=== PATIENT | male | born 1960 | race Caucasian/White ===

== ENCOUNTER → 2017-11-02 14:00 | Outpatient (CLI) | payer OTHER, SELFPAY | DX: Z23 Encounter for immunization (principal) | CPT/HCPCS: 90471; 90686 ==

== ENCOUNTER 2018-10-03 11:03 | Emergency (ER) | payer OTHER, SELFPAY ==
[2018-10-03 11:15] VITALS: BP 148/94; PULSE 99; RESP 19; TEMP 36.7; O2SAT 99
--- NOTE | 2018-10-03 12:04 | DI.RAD.S_ITS ---
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 COMPARISON: None. FINDINGS: Bones: 5 sac-[id number] vertebrae are present. There is normal bony alignment. No vertebral body compression fractures. No suspicious bony lesions. Soft tissues: Overlying bowel gas pattern is normal. No suspicious soft tissue calcifications. IMPRESSION: Minimal degenerative disc disease is present without evidence of compression fracture or subluxation. Dictated by: Damian López M.D. on 10/03/2018 at 13:16 Approved by: Damian López M.D. on 10/03/2018 at 13:17
[2018-10-03] MEDS: IBUPROFEN 400 MG TABLET 800 MG PO (12:13)
[2018-10-03] MEDS: ACETAMINOPHEN 325 MG TABLET 975 MG PO (12:13)
[2018-10-03] MEDS: CYCLOBENZAPRINE 10 MG TABLET PO (12:14)
--- NOTE | 2018-10-03 12:46 | ED.BACK ---
HPI - Back Pain/Injury <ARACELY PorterP - Last Filed: 10/03/18 22:46> General Chief Complaint: Back Pain/Injury Stated Complaint: low back pain this am Time Seen by Provider: 10/03/18 11:55 Source: patient Mode of arrival: ambulatory Limitations: no limitations History of Present Illness HPI Narrative: This is a pleasant 58-year-old male, nonsmoker, who presents with nonradiating bilateral low back pain which started at work. The patient reports severe sharp localized pain in lower lumbar after he bent forward to pick remover a small item this was on the floor and straightening his body. He felt tightening and felt like his back is going to snap if he moves wrong. He denies incontinence, tingling numbness to groin/extremities, weakness to his lower limbs. He has chronic back issues in the past. Related Data Home Medications Medication Instructions Recorded Confirmed esomeprazole magnesium 40 mg PO DAILY 10/03/18 10/03/18 metformin 500 mg PO BID 10/03/18 10/03/18 telmisartan [Micardis] 40 mg PO DAILY 10/03/18 10/03/18 Previous Rx's Medication Instructions Recorded cyclobenzaprine 10 mg PO Q12H #10 tab 10/03/18 Review of Systems <SAVAGE Porter Last Filed: 10/03/18 22:46> Review of Systems General: Denies fever, chills, fatigue, malaise, sweats. HEENT: Denies sinus pain, ear pain, sore throat, difficulty swallowing, dizziness. Respiratory: Denies dyspnea, cough, wheezing, hemoptysis, sputum. Cardiovascular: Denies chest pain, palpitations, orthopnea, edema. Gastrointestinal: Denies nausea, vomiting, abdominal pain, diarrhea, constipation, melena. : Denies dysuria, frequency, incontinence, hematuria, urinary retention. Musculoskeletal: See HPI Skin: Denies rash, skin lesions, or other. Neurologic: Denies weakness, headache, numbness, change in speech, confusion, seizures, incoordination. Psychiatric: No concerning psychosocial issues. 12-point review of systems is negative except for those stated above. PFSH <SAVAGE Porter - Last Filed: 10/03/18 22:46> Medical History Diabetes (Acute) GERD (gastroesophageal reflux disease) (Acute) Back pain (Chronic) Surgical History Status post laparoscopic Demario fundoplication (Chronic) Social History Smoking Status: Former smoker Social History Smoking Status: Former smoker Exam <SAVAGE Porter - Last Filed: 10/03/18 22:46> Narrative Exam Narrative: GEN: Alert, oriented x 3, well appearing and nourished, and in no acute distress. Head: Normal cephalic, atraumatic. No scalp or temporal tenderness, palpable mass or rash. EYES: Pupils are equal, round, and reactive to light and accommodation. Extraocular muscles are intact bilaterally. There is no subconjunctival hemorrhage, exudate and sclera non-icteric. ENT: Bilateral auditory canals and tympanic membranes. Hearing grossly intact. Nose without bleeding, purulent discharge, septal hematoma or deviation. Turbinate without erythema or swelling. Facial sinuses nontender to palpate. Mucous membrane moist, no mucosal lesion. Throat without erythema, tonsillar hypertrophy or exudate. Uvula in midline, airway patent. Neck: Trachea in midline. No JVD, non-tender without lymphadenopathy. No masses or thyroid megaly. Supple, non-tender and no meningeal signs. CARDIAC: Normal regular rate and rhythm without murmurs, gallops, or rubs. No chest wall tenderness. No peripheral edema, cyanosis or pallor. Capillary refill is less than 2 seconds. RESPIRATORY: Lungs are cleat to auscultate bilaterally. No cough, wheezes, rales, or rhonchi. No stridor, respiratory distress, increase work of breathing, or accessary muscle used. ABD: Abdomen soft, nontender and non-distended. No guarding or rebound tenderness to palpate. Bowel sounds are normal in all 4 quadrants. There is no palpable masses or organomegaly. EXT: Full painless ROM of all extremities with no loss of sensation, strength, effusion or edema. SKIN: Warm, dry, normal color for patient. No erythema, lesions or rash over visible areas. BACK: Tender to palpate in low lumbar region without deformity or crepitance. Decreased active ROM with extension, side bending. Able to bend forward and rotate his body. Ambulatory leaning forward for maximize comfort. Lower extremity strength equal and intact bilaterally. No flank tenderness. NEUROLOGICAL: Alert and oriented to place, time and person. Sensation and motor function intact bilaterally. No facial droops, dysphasia. PSYCHIATRIC: Good judgement and reason, without hallucinations, abnormal affect or abnormal behaviors during the examination. Initial Vital Signs Initial Vital Signs: Vital Signs Temperature 98.1 F 10/03/18 11:15 Pulse Rate 99 H 10/03/18 11:15 Respiratory Rate 10/03/18 11:15 Blood Pressure 148/94 H 10/03/18 11:15 Pulse Oximetry 99 10/03/18 11:15 Back/Spine/Pelvis Back: normal to inspection, No ecchymosis, No erythema and No warmth Cervical Spine: normal cervical lordosis Thoracic/Lumbar Spine: thoracic and lumbar spine normal to inspection, bend over test abnormal, paraspinal tenderness and No lumbar spinal tenderness Sacroiliac Joints: pain elicited by passive hyperextension of lower extremity <Chloe Gao MD - Last Filed: 10/04/18 07:08> Initial Vital Signs Initial Vital Signs: Vital Signs Temperature 98.1 F 10/03/18 11:15 Pulse Rate 99 H 10/03/18 11:15 Respiratory Rate 10/03/18 11:15 Blood Pressure 148/94 H 10/03/18 11:15 Pulse Oximetry 99 10/03/18 11:15 Course <SAVAGE Porter - Last Filed: 10/03/18 22:46> Orders Ordered: Discontinued Medications Acetaminophen (Tylenol) 975 mg PO NOW ONE Stop: 10/03/18 12:05 Last Admin: 10/03/18 12:13 Dose: 975 mg Cyclobenzaprine HCl (Flexeril) 10 mg PO NOW ONE Stop: 10/03/18 12:05 Last Admin: 10/03/18 12:14 Dose: 10 mg Ibuprofen (Advil) 800 mg PO NOW ONE Stop: 10/03/18 12:05 Last Admin: 10/03/18 12:13 Dose: 800 mg Vital Signs - 8 hr 10/03/18 11:15 10/03/18 12:48 Temperature 98.1 F Pulse Rate 99 H 69 Respiratory Rate 19 17 Blood Pressure 148/94 H Blood Pressure [Left Arm] 134/79 Pulse Oximetry 99 97 <Chloe Gao MD - Last Filed: 10/04/18 07:08> Orders Ordered: Discontinued Medications Acetaminophen (Tylenol) 975 mg PO NOW ONE Stop: 10/03/18 12:05 Last Admin: 10/03/18 12:13 Dose: 975 mg Cyclobenzaprine HCl (Flexeril) 10 mg PO NOW ONE Stop: 10/03/18 12:05 Last Admin: 10/03/18 12:14 Dose: 10 mg Ibuprofen (Advil) 800 mg PO NOW ONE Stop: 10/03/18 12:05 Last Admin: 10/03/18 12:13 Dose: 800 mg Vital Signs - 8 hr 10/03/18 11:15 10/03/18 12:48 Temperature 98.1 F Pulse Rate 99 H 69 Respiratory Rate 19 17 Blood Pressure 148/94 H Blood Pressure [Left Arm] 134/79 Pulse Oximetry 99 97 MDM - Back Pain/Injury <SAVAGE Porter - Last Filed: 10/03/18 22:46> Differential Diagnosis Differential diagnosis: Likely strain of lumbar region and other (compression lumbar fracture, subluxation of lumbar spine) Medical Records Attestation: I reviewed the patient's medical records. Imaging Data XR-lumbar: Radiologist's impression: Wilberto Dover Michele M [address] [place] [address] XRay Report Signed Patient: Wilberto Dover JMR#: [id number] : 2Acct:[id number] Age/Sex: 58 / MDate of Service: 10/03/18 Loc: ED Accession Number: [id number] Procedure: XR lumbar spine 2-3V Ordering Provider: Phi Sarmiento PROCEDURE: XR LUMBAR SPINE 2-3V INDICATIONS: low back pain after bent over to pick remover an object TECHNIQUE: 3 views of the lumbar spine were acquired. COMPARISON: None. FINDINGS: Bones: 5 [id number] vertebrae are present. There is normal bony alignment. No vertebral body compression fractures. No suspicious bony lesions. Soft tissues: Overlying bowel gas pattern is normal. No suspicious soft tissue calcifications. IMPRESSION: Minimal degenerative disc disease is present without evidence of compression fracture or subluxation. Dictated by: Damian López M.D. on 10/03/2018 at 13:16 Approved by: Damian López M.D. on 10/03/2018 at 13:[address] [facility] Narrative Medical decision making narrative: This is a 58-year-old male who is employed of [employer] presents with bilateral low back pain. He injured his back while at work after picking up a small item on the floor and stood up. He felt instant sharp pain. He denies saddle anesthesia, weakness to lower limbs, incontinence problem after the injury. Patient had once back issues which she required injection in his lower thoracal/lumbar. He reports pain is worse with movement and changing positions. Patient was medicated with Tylenol and Motrin also with Flexeril. Patient felt comfortable sitting and leaning forward. X-ray of lumbar was obtained and shows no acute findings such as fracture or subluxation. Patient felt improved min in his low back pain. We discussed return precautions in length. Patient was advised to follow up with L&I medical provider or his primary care physician for this. Patient discharged to home with prescription of Flexeril and advised to continue with Tylenol and Motrin. He was to use ice pack or warm pack as needed for pain and muscle relaxant. Patient agrees with plan of treatment and no further questions were expressed. Was provided work off nose for 3 days. He was discharged to home with his spouse. Flexeril medication precaution was discussed with patient. Discharge Plan Departure Patient Disposition: Home Clinical Impression: Strain of lumbar region Qualifiers: Encounter type: initial encounter Qualified Code(s): S39.012A - Strain of muscle, fascia and tendon of lower back, initial encounter Discharge Date/Time: 10/03/18 14:01 Interventions: ED Discharge Assessment Last Done: 10/03/18 14:00 Instructions: DI for Back Spasm Activity Restrictions/Additional Instructions: You have been diagnosed with [low back pain and strain. You're lumbar x-ray shows no acute findings such as compression fractures or subluxation. There was minimal degenerative disc disease. Please rest you're back next a few days.]. What to do: *Take your medications as directed. Please take [id number] Tylenol and/or ibuprofen as needed for pain and inflammation. He can use ice pack/warm pack for the pain and inflammation. The muscle relaxant will cause drowsiness so please take precaution. Do not drive, operate heavy equipment, and alcohol when you're on this medication. *Follow up with your primary care provider in 2-3 days, call for an appointment. Let them know you were seen in the ED and that we asked you to be seen in follow up. *Return to ED if you have any new, worsening, or concerning symptoms, such as [increasing pain, tingling numbness or weakness to you're extremities, incontinence, fever, chest pain, breathing difficulty, unable to tolerate fluids or any acute concerns]. Prescriptions: New cyclobenzaprine 10 mg tablet 10 mg PO Q12H Qty: 10 RF: 0 No Action telmisartan [Micardis] 40 mg tablet 40 mg PO DAILY RF: 0 esomeprazole magnesium 40 mg capsule,delayed release(DR/EC) 40 mg PO DAILY RF: 0 metformin 500 mg tablet extended release 24 hr 500 mg PO BID RF: 0 Referrals: [facility] [Outside] Stand Alone Forms: Work Release Note
[2018-10-03 12:48] VITALS: BP 134/79; PULSE 69; RESP 17; O2SAT 97
--- NOTE | 2018-10-03 12:49 | ED_ITS ---
HPI - Back Pain/Injury <ARACELY PorterP - Last Filed: 10/03/18 22:46> General Chief Complaint: Back Pain/Injury Stated Complaint: low back pain this am Time Seen by Provider: 10/03/18 11:55 Source: patient Mode of arrival: ambulatory Limitations: no limitations History of Present Illness HPI Narrative: This is a pleasant 58-year-old male, nonsmoker, who presents with nonradiating bilateral low back pain which started at work. 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 He felt tightening and felt like his back is going to snap if he moves wrong. He denies incontinence, tingling numbness to groin/extremities, weakness to his lower limbs. He has chronic back issues in the past. Related Data Home Medications Medication Instructions Recorded Confirmed esomeprazole magnesium 40 mg PO DAILY 10/03/18 10/03/18 metformin 500 mg PO BID 10/03/18 10/03/18 telmisartan [Micardis] 40 mg PO DAILY 10/03/18 10/03/18 Previous Rx's Medication Instructions Recorded cyclobenzaprine 10 mg PO Q12H #10 tab 10/03/18 Review of Systems <SAVAGE Porter Last Filed: 10/03/18 22:46> Review of Systems General: Denies fever, chills, fatigue, malaise, sweats. HEENT: Denies sinus pain, ear pain, sore throat, difficulty swallowing, dizziness. Respiratory: Denies dyspnea, cough, wheezing, hemoptysis, sputum. Cardiovascular: Denies chest pain, palpitations, orthopnea, edema. Gastrointestinal: Denies nausea, vomiting, abdominal pain, diarrhea, constipation, melena. : Denies dysuria, frequency, incontinence, hematuria, urinary retention. Musculoskeletal: See HPI Skin: Denies rash, skin lesions, or other. Neurologic: Denies weakness, headache, numbness, change in speech, confusion, seizures, incoordination. Psychiatric: No concerning psychosocial issues. 12-point review of systems is negative except for those stated above. PFSH <SAVAGE Porter - Last Filed: 10/03/18 22:46> Medical History Diabetes (Acute) GERD (gastroesophageal reflux disease) (Acute) Back pain (Chronic) Surgical History Status post laparoscopic Demario fundoplication (Chronic) Social History Smoking Status: Former smoker Social History Smoking Status: Former smoker Exam <SAVAGE Porter - Last Filed: 10/03/18 22:46> Narrative Exam Narrative: GEN: Alert, oriented x 3, well appearing and nourished, and in no acute distress. Head: Normal cephalic, atraumatic. No scalp or temporal tenderness, palpable mass or rash. EYES: Pupils are equal, round, and reactive to light and accommodation. Extraocular muscles are intact bilaterally. There is no subconjunctival hemorrhage, exudate and sclera non-icteric. ENT: Bilateral auditory canals and tympanic membranes. Hearing grossly intact. Nose without bleeding, purulent discharge, septal hematoma or deviation. Turbinate without erythema or swelling. Facial sinuses nontender to palpate. Mucous membrane moist, no mucosal lesion. Throat without erythema, tonsillar hypertrophy or exudate. Uvula in midline, airway patent. Neck: Trachea in midline. No JVD, non-tender without lymphadenopathy. No masses or thyroid megaly. Supple, non-tender and no meningeal signs. CARDIAC: Normal regular rate and rhythm without murmurs, gallops, or rubs. No chest wall tenderness. No peripheral edema, cyanosis or pallor. Capillary refill is less than 2 seconds. RESPIRATORY: Lungs are cleat to auscultate bilaterally. No cough, wheezes, rales, or rhonchi. No stridor, respiratory distress, increase work of breathing, or accessary muscle used. ABD: Abdomen soft, nontender and non-distended. No guarding or rebound tenderness to palpate. Bowel sounds are normal in all 4 quadrants. There is no palpable masses or organomegaly. EXT: Full painless ROM of all extremities with no loss of sensation, strength, effusion or edema. SKIN: Warm, dry, normal color for patient. No erythema, lesions or rash over visible areas. BACK: Tender to palpate in low lumbar region without deformity or crepitance. Decreased active ROM with extension, side bending. Able to bend forward and rotate his body. Ambulatory leaning forward for maximize comfort. Lower extremity strength equal and intact bilaterally. No flank tenderness. NEUROLOGICAL: Alert and oriented to place, time and person. Sensation and motor function intact bilaterally. No facial droops, dysphasia. PSYCHIATRIC: Good judgement and reason, without hallucinations, abnormal affect or abnormal behaviors during the examination. Initial Vital Signs Initial Vital Signs: Vital Signs Temperature 98.1 F 10/03/18 11:15 Pulse Rate 99 H 10/03/18 11:15 Respiratory Rate 10/03/18 11:15 Blood Pressure 148/94 H 10/03/18 11:15 Pulse Oximetry 99 10/03/18 11:15 Back/Spine/Pelvis Back: normal to inspection, No ecchymosis, No erythema and No warmth Cervical Spine: normal cervical lordosis Thoracic/Lumbar Spine: thoracic and lumbar spine normal to inspection, bend over test abnormal, paraspinal tenderness and No lumbar spinal tenderness Sacroiliac Joints: pain elicited by passive hyperextension of lower extremity <Chloe Gao MD - Last Filed: 10/04/18 07:08> Initial Vital Signs Initial Vital Signs: Vital Signs Temperature 98.1 F 10/03/18 11:15 Pulse Rate 99 H 10/03/18 11:15 Respiratory Rate 10/03/18 11:15 Blood Pressure 148/94 H 10/03/18 11:15 Pulse Oximetry 99 10/03/18 11:15 Course <SAVAGE Porter - Last Filed: 10/03/18 22:46> Orders Ordered: Discontinued Medications Acetaminophen (Tylenol) 975 mg PO NOW ONE Stop: 10/03/18 12:05 Last Admin: 10/03/18 12:13 Dose: 975 mg Cyclobenzaprine HCl (Flexeril) 10 mg PO NOW ONE Stop: 10/03/18 12:05 Last Admin: 10/03/18 12:14 Dose: 10 mg Ibuprofen (Advil) 800 mg PO NOW ONE Stop: 10/03/18 12:05 Last Admin: 10/03/18 12:13 Dose: 800 mg Vital Signs - 8 hr 10/03/18 11:15 10/03/18 12:48 Temperature 98.1 F Pulse Rate 99 H 69 Respiratory Rate 19 17 Blood Pressure 148/94 H Blood Pressure [Left Arm] 134/79 Pulse Oximetry 99 97 <Chloe Gao MD - Last Filed: 10/04/18 07:08> Orders Ordered: Discontinued Medications Acetaminophen (Tylenol) 975 mg PO NOW ONE Stop: 10/03/18 12:05 Last Admin: 10/03/18 12:13 Dose: 975 mg Cyclobenzaprine HCl (Flexeril) 10 mg PO NOW ONE Stop: 10/03/18 12:05 Last Admin: 10/03/18 12:14 Dose: 10 mg Ibuprofen (Advil) 800 mg PO NOW ONE Stop: 10/03/18 12:05 Last Admin: 10/03/18 12:13 Dose: 800 mg Vital Signs - 8 hr 10/03/18 11:15 10/03/18 12:48 Temperature 98.1 F Pulse Rate 99 H 69 Respiratory Rate 19 17 Blood Pressure 148/94 H Blood Pressure [Left Arm] 134/79 Pulse Oximetry 99 97 MDM - Back Pain/Injury <SAVAGE Poretr - Last Filed: 10/03/18 22:46> Differential Diagnosis Differential diagnosis: Likely strain of lumbar region and other (compression lumbar fracture, subluxation of lumbar spine) Medical Records Attestation: I reviewed the patient's medical records. 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 COMPARISON: None. FINDINGS: Bones: 5 [id number] vertebrae are present. There is normal bony alignment. No vertebral body compression fractures. No suspicious bony lesions. Soft tissues: Overlying bowel gas pattern is normal. No suspicious soft tissue calcifications. IMPRESSION: Minimal degenerative disc disease is present without evidence of compression fracture or subluxation. Dictated by: Damian López M.D. on 10/03/2018 at 13:16 Approved by: Damian López M.D. on 10/03/2018 at 13:17 [facility] Narrative Medical decision making narrative: This is a 58-year-old male who is employed of [employer] presents with bilateral low back pain. He injured his back while at work after picking up a small item on the floor and stood up. He felt instant sharp pain. He denies saddle anesthesia, weakness to lower limbs, incontinence problem after the injury. Patient had once back issues which she required injection in his lower thoracal/lumbar. He reports pain is worse with movement and changing positions. Patient was medicated with Tylenol and Motrin also with Flexeril. Patient felt comfortable sitting and leaning forward. X- ray of lumbar was obtained and shows no acute findings such as fracture or subluxation. Patient felt improved min in his low back pain. We discussed return precautions in length. Patient was advised to follow up with L&I medical provider or his primary care physician for this. Patient discharged to home with prescription of Flexeril and advised to continue with Tylenol and Motrin. He was to use ice pack or warm pack as needed for pain and muscle relaxant. Patient agrees with plan of treatment and no further questions were expressed. Was provided work off nose for 3 days. He was discharged to home with his spouse. Flexeril medication precaution was discussed with patient. Discharge Plan Departure Patient Disposition: Home Clinical Impression: Strain of lumbar region Qualifiers: Encounter type: initial encounter Qualified Code(s): S39.012A - Strain of muscle, fascia and tendon of lower back, initial encounter Discharge Date/Time: 10/03/18 14:01 Interventions: ED Discharge Assessment Last Done: 10/03/18 14:00 Instructions: DI for Back Spasm Activity Restrictions/Additional Instructions: You have been diagnosed with [low back pain and strain. You're lumbar x-ray shows no acute findings such as compression fractures or subluxation. There was minimal degenerative disc disease. Please rest you're back next a few days.]. What to do: *Take your medications as directed. Please take [id number] Tylenol and/or ibuprofen as needed for pain and inflammation. He can use ice pack/warm pack for the pain and inflammation. The muscle relaxant will cause drowsiness so please take precaution. Do not drive, operate heavy equipment, and alcohol when you're on this medication. *Follow up with your primary care provider in 2-3 days, call for an appointment. Let them know you were seen in the ED and that we asked you to be seen in follow up. *Return to ED if you have any new, worsening, or concerning symptoms, such as [increasing pain, tingling numbness or weakness to you're extremities, incontinence, fever, chest pain, breathing difficulty, unable to tolerate fluids or any acute concerns]. Prescriptions: New cyclobenzaprine 10 mg tablet 10 mg PO Q12H Qty: 10 RF: 0 No Action telmisartan [Micardis] 40 mg tablet 40 mg PO DAILY RF: 0 esomeprazole magnesium 40 mg capsule,delayed release(DR/EC) 40 mg PO DAILY RF: 0 metformin 500 mg tablet extended release 24 hr 500 mg PO BID RF: 0 Referrals: [facility] [Outside] Stand Alone Forms: Work Release Note
[2018-10-03 14:00] VITALS: BP 141/99; PULSE 58; RESP 16; O2SAT 100
== END 2018-10-03 14:01 | disposition home or self-care (01) ==
PROVIDERS: Emergency Provider Nurse Practitioner Family
DX: S39.012A Strain of muscle, fascia and tendon of lower back, initial encounter (principal); X50.9XXA Other and unspecified overexertion or strenuous movements or postures, initial encounter
CPT/HCPCS: 72100; 99282; 99283

== ENCOUNTER → 2019-01-11 12:59 | Outpatient (CLI) | payer OTHER, SELFPAY | DX: Z23 Encounter for immunization (principal) | CPT/HCPCS: 90471; 90686 ==

== ENCOUNTER → 2019-11-23 | Outpatient (CLI) | payer OTHER, SELFPAY | PROVIDERS: Referring Provider Internal Medicine; Visit Provider Internal Medicine | DX: Z23 Encounter for immunization (principal) | CPT/HCPCS: 90471; 90686 ==

== ENCOUNTER → 2020-05-17 09:17 | Outpatient (CLI) | payer OTHER, SELFPAY ==
[2020-05-17 10:50] LABS: COVID19 -Nasal RAPID Negative (Negative)
== END ==
PROVIDERS: Visit Provider Surgery
DX: Z20.822 Contact with and (suspected) exposure to COVID-19 (principal)
CPT/HCPCS: 87635; C9803

== ENCOUNTER 2020-05-20 08:30 | Day surgery (SDC) | payer OTHER, SELFPAY ==
--- NOTE | 2020-05-20 | PATH_ITS ---
[facility] Accession Number: [id number] . 01 Material submitted: . PART A: rectum - RECTAL POLYP BIOPSY PART B: sigmoid colon - SIGMOID POLYP BIOPSY PART C: anus - ANAL VERGE POLYP . 02 Diagnosis: A. Rectal Polyp, Biopsy: Hyperplastic polyp. . B. Sigmoid Colon, Polyp, Biopsy: Hyperplastic polyp. . C. Anal Verge, Polyp, Biopsy: Invasive adenocarcinoma, moderately differentiated, arising in a background of high-grade dysplasia. Carcinoma is present at deep cauterized edge. Please see comment. MRV 05/23/2020 1412 Local . 02 Comment: As part of routine senior quality control inspector, Dr. Mccullough also reviewed this case and agrees with the diagnosis. Dr. Talbot gave preliminary results to Noemy and to Dr. Barboza on 05/23/2020. Mismatch repair IHC will be performed and the results reported as an addendum. . 02 Electronically signed: . Yanet Talbot MD, Pathologist NPI- [id number] . 01 Gross description: . Part A: RECTAL POLYP BIOPSY: Received in formalin are 4 fragment(s) of boogie, soft tissue measuring 0.1 x 0.1 x 0.1 cm to 0.4 x 0.2 x 0.2 cm submitted entirely in 1 cassette(s) Part B: SIGMOID POLYP BIOPSY: Received in formalin is 1 fragment(s) of boogie, soft tissue measuring 0.3 x 0.2 x 0.2 cm submitted entirely in 1 cassette(s) Part C: ANAL VERGE POLYP: Received in formalin are multiple fragment of boogie soft tissue measuring 1.6 x 1.5 x 1.5 cm in aggregate. Specimen is sectioned and submitted in its entirety in 2 cassettes. /MING 05/21/2020 2258 Local . 02 Pathologist provided ICD-10: C20 . 02 CPT . 798484, [id number], [id number], [id number], [id number] Performed at: 01 [facility] [address] [address], [place], [place] [id number] MD Blayne Ho MD Phone: [phone] Performed at: 02 [facility] [address] [place] [id number] MD Yanet Talbot MD Phone: [phone]
[2020-05-20 08:58] VITALS: BP 134/88; PULSE 83; RESP 15; TEMP 37.3; O2SAT 100; BMI 29.7
[2020-05-20] MEDS: LACTATED RINGERS 1,000 ML 200 ML IV (09:06)
--- NOTE | 2020-05-20 10:23 | PM.HP.1 ---
History of Present Illness History of Present Illness Date Patient Seen: 05/20/20 Time Patient Seen: 10:23 Chief complaint: SDC Narrative: The patient presents for colorectal screening after experiencing intermittent bright red blood per rectum. They have never had any previous examination for such. No personal or family history of colon cancer. On further history denies any recent gastrointestinal symptoms. No nausea, vomiting, abdominal pain, loss of appetite, unexplained weight loss, change in bowel habits, diarrhea, constipation. Patient History Medical History Back pain Diabetes GERD (gastroesophageal reflux disease) Surgical History Status post laparoscopic Demario fundoplication Family & Social History Social History: household members spouse Tobacco & Substance use: Smoking Status Former smoker alcohol intake never alcohol intake frequency other Substance Use Type does not use Meds Home Medications and Allergies Home Medications Medication Instructions Recorded Confirmed Type esomeprazole magnesium 40 mg PO DAILY 10/03/18 05/20/20 History metformin 500 mg PO BID 10/03/18 05/20/20 History telmisartan [Micardis] 40 mg PO DAILY 10/03/18 05/20/20 History Allergies Allergy/AdvReac Type Severity Reaction Status Date / Time No Known Drug Allergies Allergy Verified 05/20/20 08:44 Review of Systems Review of Systems ROS: Yes All systems reviewed with the patient and are negative except as otherwise documented Exam Vital Signs (past 8 hours): - 05/20/20 08:58 Temperature 99.1 F Pulse Rate 83 Respiratory Rate 15 Blood Pressure 134/88 Pulse Oximetry 100 Oxygen Delivery Method Room Air Narrative Exam Narrative: General-no acute distress, adult male HEENT-moist mucous membranes, no scleral icterus Neck-supple, no lymphadenopathy Chest- non labored respirations, clear to auscultation bilaterally Cardiac-regular rate no peripheral edema Abdomen-soft, nontender nondistended Extremities-warm, well perfused Neurological-alert and oriented, no focal deficits Assessment & Plan Assessment & Plan narrative: The patient requires colorectal screening and colonoscopy is recommended. Technical details were discussed. Risks, benefits, alternatives explained. Risks including but not limited to myocardial infarction, aspiration, bleeding, pain, missed lesion, incomplete examination, need for further radiographic studies, colonic perforation, and need for major abdominal surgery were discussed. All questions were answered to their satisfaction, and they are in agreement with this plan.
[2020-05-20] MEDS: MIDAZOLAM 5 MG/5 ML VIAL IV (10:30)
[2020-05-20] MEDS: fentaNYL 250 MCG/5 ML INJ IV (10:30)
[2020-05-20] MEDS: DIBUCAINE 1% OINT 28 GM 1 APPLIC TOP (11:15)
--- NOTE | 2020-05-20 11:17 | PM.OP.ENDO ---
Operative Date/Time/Diagnoses Date of procedure: 05/20/20 Time of procedure: 11:17 Pre-op diagnosis: Blood per rectum Post-op diagnosis: same Procedure & Clinicians Study performed: Colonoscopy Polypectomy Same procedure as scheduled: Yes Indications: 60-year-old male no prior colonoscopy presents after her intermittent bright red blood per rectum for colonoscopy. Surgeon: Ike Barboza Procedure Notes Procedure in detail: Medications: Conscious sedation using 8mg IV midazolam and 350mcg IV of fentanyl The history and physical was performed/updated and the patient is ASA class is 2. The procedure was discussed in detail with the patient. Potential risks complications including infection, bleeding, missed diagnosis, perforation, need for surgery, and were explained. Their questions were answered and informed consent was obtained. Patient was brought to the procedure room and placed standard monitoring equipment. The patient's vital signs were monitored continuously throughout the entire procedure. Prior to starting time-out was performed. The patient was placed in the left lateral recumbent position. Procedural sedation was administered. Examination began with a thorough inspection of the perianal area there was no evidence of fissures, fistulae, external hemorrhoids or cutaneous malignancy. The colonoscopy scope was then placed into the anal canal and was advanced to the cecum, which was identified by the ileocecal valve, the appendiceal orifice and the confluence of the taenia. The scope was then slowly withdrawn examining colon thoroughly in all directions, irrigating it of any residual stool. 5 mm polyp within the rectum removed with biopsy forceps. A 5 mm polyp within the sigmoid colon removed with biopsy forceps. 1-1/2 cm polyp within the anal canal seen on retroflexion removed in pieces using hot snare. Removed in its entirety. The patient tolerated the procedure well. They will be discharged once criteria are met. The prep was of good/excellent quality. The withdrawl time was 18 minutes. The sedation time was 45 minutes. Specimen(s): other (Anal canal, rectal, sigmoid, polyps) Complications: none Impression: Colonic polyps Post-procedure Recommendations: Colonscopy in 5 years Disposition: same day surgery
[2020-05-20 11:20] VITALS: BP 153/96; PULSE 95; RESP 14; TEMP 36.5; O2SAT 99
[2020-05-20 11:25] VITALS: BP 135/87; BP 144/96; PULSE 87; PULSE 91; RESP 13; RESP 14; TEMP 36.6; O2SAT 98; O2SAT 99
[2020-05-20 11:28] VITALS: BP 136/85; PULSE 96; RESP 13; TEMP 36.2; O2SAT 98
== END 2020-05-20 11:48 | disposition home or self-care (01) ==
PROVIDERS: Referring Provider Surgery; Visit Provider Surgery
PROC: 0DJD8ZZ Inspection of Lower Intestinal Tract, Via Natural or Artificial Opening Endoscopic (ICD-10-PCS; CPT 45378; principal; 2020-05-20 10:00)
DX: C20 Malignant neoplasm of rectum (principal); E11.9 Type 2 diabetes mellitus without complications; Z79.84 Long term (current) use of oral hypoglycemic drugs; K21.9 Gastro-esophageal reflux disease without esophagitis; K63.5 Polyp of colon
CPT/HCPCS: 45385; 45380; 99152; 99153; J2250; J3010

== ENCOUNTER → 2020-06-06 10:57 | Outpatient (CLI) | payer OTHER, SELFPAY ==
[2020-06-06 12:09] LABS: Hematocrit 42.4 % (41-53); Hemoglobin 14.4 g/dL (13.5-17.5); Mean Corpuscular HGB Conc 33.9 % (30-36); Mean Corpuscular Hemoglobin 28.9 PG (26-34); Mean Corpuscular Volume 85.2 fL (80-100); Platelet Count 246 X10^3/uL (150-400); Red Blood Cell Count 4.97 X10^6/uL (4.5-5.9); Red Cell Distribution Width 13.4 % (11.6-14.8); White Blood Cell Count 6.9 X10^3/uL (4.5-11.0)
[2020-06-06 12:28] LABS: Alanine Aminotransferase 34 IU/L (<50); Albumin 4.6 g/dL (3.5-5.0); Albumin Globulin Ratio 1.6 (1.0-2.8); Alkaline Phosphatase 73 U/L (38-126); Aspartate Aminotransferase 33 IU/L (17-59); BUN Creatinine Ratio 17.5 (6-22); Bilirubin Total 0.4 mg/dL (0.2-1.3); Blood Urea Nitrogen 14 mg/dL (9-20); Calcium 9.8 mg/dL (8.4-10.2); Carbon Dioxide 26 mmol/L (22-32); Chloride 100 mmol/L (98-107); Estimated Glomerular Filt Rate > 60.0 mL/min (>60); Globulin 2.8 g/dL (1.7-4.1); Glucose 321 mg/dL (70-100); HEMOLYSIS 17 (0-50); Potassium 4.4 mmol/L (3.4-5.1); Sodium 136 mmol/L (137-145); Total Protein 7.4 g/dL (6.3-8.2)
[2020-06-06 16:19] LABS: Carcinoembryonic Antigen 1.2 ng/mL (0.1-3.0)
== END ==
PROVIDERS: Referring Provider Surgery; Visit Provider Surgery
DX: C20 Malignant neoplasm of rectum (principal)
CPT/HCPCS: 36415; 80053; 82378; 85027

== ENCOUNTER → 2020-06-11 06:35 | Outpatient (CLI) | payer OTHER, SELFPAY ==
--- NOTE | 2020-06-11 06:37 | DI.MRI.S_ITS ---
PROCEDURE: MR ABDOMEN WO/W CON INDICATIONS: rectal cancer staging TECHNIQUE: Coronal HASTE, axial 2D FLASH in- and [id number]; axial breath-hold T2 FSE. Dynamic axial VIBE during the administration of contrast; post-contrast coronal VIBE or 2D FLASH with fat saturation from the hepatic dome to the iliac crests. Optional diffusion weighted imaging and ADC may be performed. COMPARISON: [facility], CT, CT CHEST W CON, 06/11/2020, 7:20. FINDINGS: Image quality: Excellent. Lung bases: No basal pleural effusions. Heart size is normal. Solid organs: Liver is normal in size and enhancement. Gallbladder appears normal. Biliary system is non dilated. Pancreas is normal in morphology. Spleen is normal in size and enhancement. No adrenal nodules. Both kidneys demonstrate normal size and enhancement, without hydronephrosis. Nodes and vessels: No retroperitoneal or mesenteric adenopathy by size criteria. Aorta and inferior vena cava are normal in size. Bowel and peritoneum: Bowel loops are normal in caliber. No free fluid. Bones and soft tissues: No ventral hernias. Bone marrow is normal in overall signal. IMPRESSION: No evidence of metastatic disease related to reported rectal carcinoma. Normal for age. Please note this study does not include the pelvis. If outside CT abdomen/pelvis is available for review I would be happy to generate an addendum to this report if a comparison study becomes available. Dictated by: Damian López M.D. on 06/11/2020 at 10:50 Approved by: Damian Lópze M.D. on 06/11/2020 at 11:00
--- NOTE | 2020-06-11 07:20 | DI.CT.S_ITS ---
PROCEDURE: CT CHEST W CON INDICATIONS: rectal cancer staging workup TECHNIQUE: After the administration of intravenous contrast, 5 mm thick sections acquired from the pulmonary apices to the posterior costophrenic angles. 1 mm axial lung, 5 mm thick coronal and sagittal reformats and 7 mm axial MIP were acquired. For radiation dose reduction, the following was used: automated exposure control, adjustment of mA and/or kV according to patient size. COMPARISON: [facility], MR, MR ABDOMEN WO/W CON, 06/11/2020, 7:14. FINDINGS: Image quality: Excellent. Lungs and pleura: No acute air space opacities. No pleural effusions or pneumothorax. Central and peripheral airways are patent and normal in caliber. 8 mm nodule along the right minor fissure on series 3, image 141. No priors are available for comparison. Mediastinum: Heart size is normal. No pericardial effusion. No mediastinal or hilar adenopathy by size criteria. Thoracic aorta and central pulmonary arteries are normal in size. Esophagus is normal in caliber. No hiatal hernia. Bones and chest wall: No suspicious bony lesions. No vertebral body compression fractures. No axillary or supraclavicular adenopathy by size criteria. Thyroid gland is unremarkable . Abdomen: Visualized portions of the liver appear enlarged with steatosis. Nonobstructing right renal calculi are noted, the largest measuring approximately 6 mm. Otherwise, visualized upper abdominal solid organs appear normal. Upper abdominal bowel loops are normal in caliber. IMPRESSION: 1. 8 mm right fissural nodule as above. It is nonspecific and no prior exams are available for comparison. Given history of rectal cancer, metastatic focus cannot be excluded and continued short interval imaging follow-up with attention to this region is recommended to document stability or progression. Dictated by: Caitlyn Lutz M.D. on 06/11/2020 at 13:00 Approved by: Caitlyn Lutz M.D. on 06/11/2020 at 13:06
== END ==
PROVIDERS: Referring Provider Surgery; Visit Provider Surgery
DX: C20 Malignant neoplasm of rectum (principal)
CPT/HCPCS: 71260; 74183; Q9967

== ENCOUNTER → 2020-06-25 08:53 | Outpatient (CLI) | payer OTHER, SELFPAY ==
--- NOTE | 2020-06-25 08:54 | DI.MRI.S_ITS ---
PROCEDURE: MR PELIS WO/W CON INDICATIONS: low rectal cancer TECHNIQUE: Coronal HASTE, sagittal T2 FSE, axial T1 FSE, axial and coronal nonbreath-hold T2 FSE. Axial dynamic VIBE during administration of contrast. Post-contrast axial and coronal VIBE/2-D FLASH with fat saturation from the iliac crests to the symphysis. Optional diffusion weighted imaging and ADC may be performed. COMPARISON: [facility], CT, CT CHEST W CON, 06/11/2020, 7:20. [facility], MR, MR ABDOMEN WO/W CON, 06/11/2020, 7:14. FINDINGS: Image quality: Excellent. Rectum: Morphology: Semi circumferential at the upper and lower thirds of the rectal mass, and circumferential at the middle 3rd. Clock face of tumor involvement: Not applicable-the mass involves the posterior border of the sigmoid colon and wraps posteriorly and then inferiorly into the upper rectum, with sagittal imaging during contrast enhancement showing the upper border of the mass on series 20, image 116 and the lower border of the mass after its crescentic course through the peritoneal reflection also on series 20, image 116. Mucinous (high T2 signal): No. Craniocaudal length: Utilizing multipoint measurement through the curvature from the sagittal pulse sequence, series 20, image 116 the craniocaudad length is extrapolated as 5.8 cm. Distance to anal verge: From the inferior margin of the mass using multi point extrapolation on sagittal imaging the length to the anal verge is 9.5 cm. Distance to top of sphincter complex/anorectal junction: 5.3 cm Relationship to anterior peritoneal reflection: Straddles, as noted above Tumor at or below puborectalis sling: No T staging: Depth of extramural invasion: None seen Extramural vascular invasion: None seen T3 tumors only: distance to mesorectal fascia (circumferential resection margin): Not applicable Pelvic organ involvement: Genitourinary: None. Pelvic sidewall (obturator internus, piriformis, ischiococcygeus muscles): Not involved Pelvic floor (pubococcygeus, iliococcygeus, puborectalis, levator plate): Not involved Sacrum: Not involved Vessels (internal and external iliac arteries and veins): Not involved Nerves (lumbosacral nerve roots): Not involved Regional lymph nodes (mesorectal, inguinal, iliac): None seen Other bowel and peritoneum: No pathologic free pelvic fluid. More proximal colon and small bowel loops are normal in caliber. Bones: Marrow is normal in overall signal. IMPRESSION: The rectal carcinoma involves the posterior border of the sigmoid colon and is eccentric in its involvement of the upper and lower 3rd margins of the neoplasm, but over much of the course through the middle 3rd of the neoplasm the lesion is circumferential. There is no evidence of irregularity along the serosal surface in the area of involvement, or extension into the mesial rectal fat. No adjacent adenopathy or regional osseous metastatic disease is seen. Dictated by: Damian López M.D. on 06/25/2020 at 15:15 Approved by: Damian López M.D. on 06/25/2020 at 15:43
== END ==
PROVIDERS: Referring Provider Surgery; Visit Provider Surgery
DX: C20 Malignant neoplasm of rectum (principal)
CPT/HCPCS: 72197

== ENCOUNTER → 2020-08-14 14:02 | Outpatient (CLI) | payer OTHER, SELFPAY ==
[2020-08-14 15:06] LABS: Carcinoembryonic Antigen 1.4 ng/mL (0.1-3.0)
== END ==
PROVIDERS: Referring Provider Surgery; Visit Provider Surgery
DX: C20 Malignant neoplasm of rectum (principal)
CPT/HCPCS: 36415; 82378

== ENCOUNTER → 2021-01-24 12:05 | Outpatient (CLI) | payer OTHER, SELFPAY | PROVIDERS: Referring Provider Internal Medicine; Visit Provider Internal Medicine | DX: Z23 Encounter for immunization (principal) | CPT/HCPCS: 90471; 90686 ==

== ENCOUNTER 2021-05-05 10:41 | Emergency (ER) | payer OTHER, SELFPAY ==
[2021-05-05] VITALS (11 sets, daily range): BP systolic 133–184; BP diastolic 78–95; PULSE 67–96; RESP 15–18; TEMP 36.5; O2SAT 91–100
[2021-05-05 11:22] LABS: Add Manual Diff / Slide Review NO; Basophils Absolute Auto 100 /uL (0-100); Basophils Percent Auto 1.2 % (0-2); Eosinophils Absolute Auto 200 /uL (0-450); Eosinophils Percent Auto 2.7 % (2-4); Hematocrit 38.6 % (41-53); Hemoglobin 13.3 g/dL (13.5-17.5); Lymphocytes Absolute Auto 2500 /uL (1100-4500); Lymphocytes Percent Auto 32.6 % (25-40); Mean Corpuscular HGB Conc 34.6 % (30-36); Mean Corpuscular Hemoglobin 28.6 PG (26-34); Mean Corpuscular Volume 82.6 fL (80-100); Monocytes Absolute Auto 800 /uL (0-900); Monocytes Percent Auto 10.3 % (3-14); Neutrophils Absolute Auto 4100 /uL (1500-7000); Neutrophils Percent Auto 53.2 % (50-75); Platelet Count 257 X10^3/uL (150-400); Red Blood Cell Count 4.67 X10^6/uL (4.5-5.9); Red Cell Distribution Width 13.5 % (11.6-14.8); White Blood Cell Count 7.8 X10^3/uL (4.5-11.0)
[2021-05-05 11:26] LABS: INR 0.9 (0.9-1.3); Prothrombin Time 10.1 SECONDS (10.1-12.7)
[2021-05-05 11:29] LABS: PTT Partial Thromboplastin Tim 34 SECONDS (26.4-36.2)
[2021-05-05 11:30] LABS: Alanine Aminotransferase 31 IU/L (<50); Albumin 4.7 g/dL (3.5-5.0); Albumin Globulin Ratio 1.9 (1.0-2.8); Alkaline Phosphatase 70 U/L (38-126); Aspartate Aminotransferase 27 IU/L (17-59); BUN Creatinine Ratio 20.5 (6-22); Bilirubin Total 0.4 mg/dL (0.2-1.3); Blood Urea Nitrogen 16 mg/dL (9-20); Calcium 9.4 mg/dL (8.4-10.2); Carbon Dioxide 24 mmol/L (22-32); Chloride 103 mmol/L (98-107); Estimated Glomerular Filt Rate > 60.0 mL/min (>60); Globulin 2.5 g/dL (1.7-4.1); Glucose 271 mg/dL (80-110); HEMOLYSIS 24 (0-50); Lipase 96 U/L (23-300); Potassium 4.4 mmol/L (3.4-5.1); Sodium 136 mmol/L (137-145); Total Protein 7.2 g/dL (6.3-8.2)
--- NOTE | 2021-05-05 12:19 | DI.CT.S_ITS ---
PROCEDURE: CT ABDOMEN PELVIS W CON INDICATIONS: diverticulitis? LLQ pain, penile/testicular pain, proctitis? TECHNIQUE: After the administration of intravenous contrast, axial sections acquired from the lung bases to the pubic symphysis. Coronal and sagittal reformats were performed. For radiation dose reduction, the following was used: automated exposure control, adjustment of mA and/or kV according to patient size. COMPARISON: [facility], MR, MR ABDOMEN WO/W CON, 06/11/2020, 7:14. [facility], MR, MR PELVIS WO/W CON, 06/25/2020, 9:18. FINDINGS: Image quality: Excellent. Lung bases: Unremarkable. Heart: No significant findings. ABDOMEN: Liver: Liver is normal in size. Moderate hepatic steatosis is seen, no discrete hepatic lesion.. Gallbladder: Gallbladder is within normal limits. Biliary ducts: Unremarkable. Pancreas: Unremarkable. Spleen: Unremarkable. Adrenal Glands: Unremarkable. Kidneys and Ureters: Unremarkable. Stomach and Bowel: Stomach, small bowel loops, and colon are unremarkable. No significant colonic diverticulosis is seen. No CT evidence of acute diverticulitis. Mild fecal stasis in the colon is seen. There is suggestion of distal posterior and left lateral rectal wall thickening with adjacent fat stranding. No discrete abscess collection is seen. Peritoneum: No abnormal intraperitoneal fluid. No free air. Ventral Wall: No hernias. Abdominal Nodes: No retroperitoneal or mesenteric adenopathy by size criteria. Vessels: Aorta and inferior vena cava are normal in size. Sfki-ko-kudywoaq atherosclerotic calcifications in abdominal aorta is seen. PELVIS: Pelvic Organs: Unremarkable. Bladder: Unremarkable. Pelvic Nodes: No enlarged lymph nodes. Miscellaneous: No hernias are seen. Bones: No suspicious bony lesion. No acute vertebral body compression. IMPRESSION: 1. Left posterior lateral rectal wall thickening with adjacent fat stranding concerning for proctitis. Given patient's history of rectal cancer, local recurrence cannot be entirely excluded. Clinical and possible endoscopic evaluation is recommended. 2. No other area of abnormal bowel wall thickening. No bowel obstruction. Mild constipation. No free fluid or free air. No abscess collection. 3. Hepatic steatosis, no discrete hepatic lesion. Dictated by: Richard Mariscal M.D. on 05/05/2021 at 13:00 Approved by: Richard Mariscal M.D. on 05/05/2021 at 13:04
--- NOTE | 2021-05-05 12:44 | ED_ITS ---
HPI - Male Genitourinary <Yanet Bates [facility] [place] - Last Filed: 05/05/21 14:05> General Chief complaint: Urogenital-Male Stated complaint: Lower left abd pain Time Seen by Provider: 05/05/21 12:06 Source: patient Mode of arrival: Ambulatory History of Present Illness HPI Narrative: 61-year-old male who has a history back pain, diabetes, GERD with a past problem of rectal cancer who presents to the emergency department complaining of left lower quadrant and flank pain for the last 5 days with urinary frequency, u rgency, and left testicle pain. Patient states that he is uncircumcised, and he always has been hygienic in this area and he denies any signs of infection but he endorses irritation and redness around his urethra. Patient states that he does not have a bowel movement every day, he endorses that when he does it is very large and it has been 2 days since he has had a bowel movement. He denies any fever, nausea, vomiting, chest pain, chills. He states that he has had 2 days of fatigue, feeling more tired than usual, and overall just unwell. He came to emergency department concern for a urinary infection. Patient states that he takes a baby aspirin daily and he took 2 this morning for his pain and he is doing okay right now. On chart review it was noted that patient has a history of Faraz fundoplication, and 6 months ago patient had a colonoscopy after 6 months of rectal bleeding with surgery by Dr. Barboza removing a 5 mm polyp and pathology demonstrated invasive adenocarcinoma, moderately differentiated, arising in a background of of high-grade dysplasia. Carcinoma was present at the deep cauterize edge. Patient had this area tattooed and was to follow-up with a colonoscopy in 6 months. Patient did not endorse any of this background, this was all found on chart review. Related Data Home Medications Medication Instructions Recorded Confirmed esomeprazole magnesium 40 mg 40 mg PO DAILY 10/03/18 06/05/20 capsule,delayed release metformin 500 mg tablet,extended 500 mg PO BID 10/03/18 06/05/20 release 24 hr telmisartan 40 mg tablet 40 mg PO DAILY 10/03/18 06/05/20 metformin 500 mg tablet,extended 1,000 mg PO BID 05/05/21 05/05/21 release 24 hr Previous Rx's Medication Instructions Recorded ciprofloxacin HCl 500 mg tablet 500 mg PO BID 8 Days #16 tab 05/05/21 metronidazole 500 mg tablet 500 mg PO TID 8 Days #24 tab 05/05/21 Allergies Allergy/AdvReac Type Severity Reaction Status Date / Time No Known Drug Allergies Allergy Verified 06/05/20 14:37 Review of Systems <SAVAGE Hutchins - Last Filed: 05/05/21 14:05> Review of Systems Narrative: General: denies fever, chills, or sweats, endorses havingmalaise, fatigue Head/Neck: denies headache, neck pain, dizziness Eyes: denies visual changes, eye pain Cardio: denies chest pain, palpitations, edema Respiratory: denies dyspnea, cough, orthopnea GI: endorses LLQ abdominal pain without nausea, vomiting, or diarrhea : endorses dysuria, denies hematuria, urinary retention, frequency or incontinence. He states that after voiding sometimes he has dribbling and may be why his urethra is irritated MSK: denies joint pain, muscle weakness Skin: denies rash, itching, skin lesions or other Neuro: denies numbness, tingling Patient History <SAVAGE Hutchins - Last Filed: 05/05/21 14:05> Medical History (Updated 05/05/21 @ 13:36 by SAVAGE Hutchins) Back pain Diabetes GERD (gastroesophageal reflux disease) Surgical History Status post laparoscopic Demario fundoplication Social History household members: spouse Smoking Status: Former smoker alcohol intake: never Smoking Status: Former smoker alcohol intake frequency: other Substance Use Type: does not use Exam <SAVAGE Hutchins - Last Filed: 05/05/21 14:05> Narrative Exam Narrative: Independently reviewed vitals signs and nursing notes. General: cooperative, comfortable, in no acute distress, well developed and well groomed Head: atraumatic, symmetrical facial expressions Neck: supple, atraumatic, without lymphadenopathy. Eyes: pupils equal round and reactive, EOMI, conjunctiva normal Nose: nares patent, no rhinorrhea Mouth/Throat: uvula midline, moist mucus membranes Cardiovascular: regular rate and rhythm, no peripheral edema, warm extremities Respiratory: normal effort, able to speak in complete sentences, no audible wheezing, stridor, or rales. No retractions or tachypnea. GI: abdomen soft, tender over left lower quadrant to palpation, nondistended, no masses, no exquisite tenderness with exam, patient is guarding on lower left quadrant with palpation MSK: moves all extremities, ambulatory w/steady gait, neurovascularly intact, no weakness Skin: brisk capillary refill, no rash, no erythema Neuro: normal speech and cognition, A&O x3, normal tone Psych: mental status is grossly normal, congruent mood, normal affect, pleasant and cooperative Initial Vital Signs Initial Vital Signs: Vital Signs Pulse Rate 96 H 05/05/21 10:46 Blood Pressure 184/95 H 05/05/21 10:46 Pulse Oximetry 91 05/05/21 10:46 <Chanda Grady DO - Last Filed: 05/06/21 07:46> Initial Vital Signs Initial Vital Signs: Vital Signs Pulse Rate 96 H 05/05/21 10:46 Blood Pressure 184/95 H 05/05/21 10:46 Pulse Oximetry 91 05/05/21 10:46 Course <SAVAGE Hutchins - Last Filed: 05/05/21 14:05> Orders Ordered: ED Orders 05/05/21 11:06 Complete Blood Count AUTO DIFF Stat Comprehensive Metabolic Panel Stat Lipase Stat Partial Thromboplastin Time Stat Procalcitonin Stat Prothrombin Time INR Stat 05/05/21 11:19 EKG-12 Lead Stat 05/05/21 12:19 CT abdomen pelvis w con Stat Vital Signs Vital signs: Vital Signs - 8 hr 05/05/21 10:46 05/05/21 10:49 05/05/21 11:03 Temperature 97.7 F Pulse Rate 96 H 70 81 Respiratory Rate 18 Blood Pressure 184/95 H 184/95 H Pulse Oximetry 91 98 99 05/05/21 11:07 05/05/21 11:30 05/05/21 11:58 Temperature Pulse Rate 89 78 79 Respiratory Rate Blood Pressure 142/87 H 134/81 Pulse Oximetry 99 98 98 05/05/21 12:00 05/05/21 12:33 05/05/21 13:00 Temperature Pulse Rate 75 80 67 Respiratory Rate 15 Blood Pressure 133/78 Pulse Oximetry 98 100 99 05/05/21 13:30 Temperature Pulse Rate 88 Respiratory Rate Blood Pressure Pulse Oximetry 99 <Chanda Grady DO - Last Filed: 05/06/21 07:46> Orders Ordered: ED Orders 05/05/21 11:06 Complete Blood Count AUTO DIFF Stat Comprehensive Metabolic Panel Stat Lipase Stat Partial Thromboplastin Time Stat Procalcitonin Stat Prothrombin Time INR Stat 05/05/21 11:19 EKG-12 Lead Stat 05/05/21 12:19 CT abdomen pelvis w con Stat Vital Signs Vital signs: Vital Signs - 8 hr 05/05/21 10:46 05/05/21 10:49 05/05/21 11:03 Temperature 97.7 F Pulse Rate 96 H 70 81 Respiratory Rate 18 Blood Pressure 184/95 H 184/95 H Pulse Oximetry 91 98 99 05/05/21 11:07 05/05/21 11:30 05/05/21 11:58 Temperature Pulse Rate 89 78 79 Respiratory Rate Blood Pressure 142/87 H 134/81 Pulse Oximetry 99 98 98 05/05/21 12:00 05/05/21 12:33 05/05/21 13:00 Temperature Pulse Rate 75 80 67 Respiratory Rate 15 Blood Pressure 133/78 Pulse Oximetry 98 100 99 05/05/21 13:30 Temperature Pulse Rate 88 Respiratory Rate Blood Pressure Pulse Oximetry 99 MDM - Male Genitourinary <ARACELY HutchinsP - Last Filed: 05/05/21 14:05> Lab Data Result diagrams: 05/05/21 11:06 05/05/21 11:06 Labs: Lab Results 05/05/21 05/05/21 05/05/21 Range/Units 11:06 11:06 11:06 WBC 7.8 (4.5-11.0) X10^3/uL RBC 4.67 (4.5-5.9) X10^6/uL Hgb 13.3 L (13.5-17.5) g/dL Hct 38.6 L (41-53) % MCV 82.6 (80-100) fL MCH 28.6 (26-34) PG MCHC 34.6 (30-36) % RDW 13.5 (11.6-14.8) % Plt Count 257 (150-400) X10^3/uL Neut % (Auto) 53.2 (50-75) % Lymph % (Auto) 32.6 (25-40) % [place] % (Auto) 10.3 (3-14) % Eos % (Auto) 2.7 (2-4) % Baso % (Auto) 1.2 (0-2) % Neut # (Auto) 4100 (4349-9804) /uL Lymph # (Auto) 2500 (6700-6468) /uL [place] # (Auto) 800 (0-900) /uL Eos # (Auto) 200 (0-450) /uL Baso # (Auto) 100 (0-100) /uL PT 10.1 (10.1-12.7) SECONDS INR 0.9 (0.9-1.3) APTT 34 (26.4-36.2) SECONDS Sodium 136 L (137-145) mmol/L Potassium 4.4 (3.4-5.1) mmol/L Chloride 103 (98-107) mmol/L Carbon Dioxide 24 (22-32) mmol/L BUN 16 (9-20) mg/dL Creatinine 0.78 (0.66-1.25) mg/dL Estimated GFR > 60.0 (>60) mL/min BUN/Creatinine Ratio 20.5 (6-22) Glucose 271 H (80-110) mg/dL Calcium 9.4 (8.4-10.2) mg/dL Total Bilirubin 0.4 (0.2-1.3) mg/dL AST 27 (17-59) IU/L ALT 31 (<50) IU/L Alkaline Phosphatase 70 (38-126) U/L Total Protein 7.2 (6.3-8.2) g/dL Albumin 4.7 (3.5-5.0) g/dL Globulin 2.5 (1.7-4.1) g/dL Albumin/Globulin Ratio 1.9 (1.0-2.8) Lipase 96 (23-300) U/L Procalcitonin (<0.5) ng/mL 05/05/21 Range/Units 11:06 WBC (4.5-11.0) X10^3/uL RBC (4.5-5.9) X10^6/uL Hgb (13.5-17.5) g/dL Hct (41-53) % MCV (80-100) fL MCH (26-34) PG MCHC (30-36) % RDW (11.6-14.8) % Plt Count (150-400) X10^3/uL Neut % (Auto) (50-75) % Lymph % (Auto) (25-40) % [place] % (Auto) (3-14) % Eos % (Auto) (2-4) % Baso % (Auto) (0-2) % Neut # (Auto) (3233-2667) /uL Lymph # (Auto) (7836-2616) /uL [place] # (Auto) (0-900) /uL Eos # (Auto) (0-450) /uL Baso # (Auto) (0-100) /uL PT (10.1-12.7) SECONDS INR (0.9-1.3) APTT (26.4-36.2) SECONDS Sodium (137-145) mmol/L Potassium (3.4-5.1) mmol/L Chloride (98-107) mmol/L Carbon Dioxide (22-32) mmol/L BUN (9-20) mg/dL Creatinine (0.66-1.25) mg/dL Estimated GFR (>60) mL/min BUN/Creatinine Ratio (6-22) Glucose (80-110) mg/dL Calcium (8.4-10.2) mg/dL Total Bilirubin (0.2-1.3) mg/dL AST (17-59) IU/L ALT (<50) IU/L Alkaline Phosphatase (38-126) U/L Total Protein (6.3-8.2) g/dL Albumin (3.5-5.0) g/dL Globulin (1.7-4.1) g/dL Albumin/Globulin Ratio (1.0-2.8) Lipase (23-300) U/L Procalcitonin 0.05 (<0.5) ng/mL Point of Care Testing Glucose POC 268 Urine Dip Bedside Urine Glucose 1000 mg/dl Bedside Urine Bilirubin - Negative Bedside Urine Ketone - Negative Urine Specific [place] 1.025 Bedside Urine Occult Blood - Negative Bedside Urine pH 6.0 Bedside Urine Protein - Negative Bedside Urine Urobilinogen - Negative Bedside Urine Nitrite - Negative Bedside Urine Leukocytes - Negative Esterase Imaging Data CT scan - abdomen/pelvis: Radiologist's Impression: PROCEDURE:? CT ABDOMEN PELVIS W CON ? INDICATIONS:? diverticulitis? LLQ pain, penile/testicular pain, proctitis? ? TECHNIQUE:? After the administration of intravenous contrast, axial sections acquired from the lung bases to the pubic symphysis.? Coronal and sagittal reformats were performed.? For radiation dose reduction, the following was used:? automated exposure control, a djustment of mA and/or kV according to patient size.? ? COMPARISON:? [facility], MR, ABDOMEN WO/W CON, 06/11/2020, 7:14.? [facility], MR, PELVIS WO/W CON, 06/25/2020, 9:18. ? FINDINGS:? Image quality:? Excellent.? ? Lung bases:? Unremarkable. Heart:? No significant findings. ? ABDOMEN: Liver:? Liver is normal in size.? Moderate hepatic steatosis is seen, no discrete hepatic lesion..? ? Gallbladder:? Gallbladder is within normal limits. Biliary ducts:? Unremarkable.? ? Pancreas:? Unremarkable.? ? Spleen:? Unremarkable.? ? Adrenal Glands:? Unremarkable.? ? Kidneys and Ureters:? Unremarkable.? ? ? Stomach and Bowel:? Stomach, small bowel loops, and colon are unremarkable.? No significant colonic diverticulosis is seen.? No CT evidence of acute diverticulitis.? Mild fecal stasis in the colon is seen.? There is suggestion of distal posterior and left lateral rectal wall thickening with adjacent fat stranding.? No discrete abscess collection is seen. Peritoneum:? No abnormal intraperitoneal fluid.? No free air.? ? Ventral Wall: ? No hernias.? Abdominal Nodes:? No retroperitoneal or mesenteric adenopathy by size criteria.? Vessels:? Aorta and inferior vena cava are normal in size.? [id number] atherosclerotic calcifications in abdominal aorta is seen. ? PELVIS: Pelvic Organs:? Unremarkable.? ? Bladder:? Unremarkable.? ? Pelvic Nodes: No enlarged lymph nodes.? Miscellaneous: No hernias are seen. ? ? ? Bones:? No suspicious bony lesion.? No acute vertebral body compression. ? ? IMPRESSION: 1. Left posterior lateral rectal wall thickening with adjacent fat stranding concerning for proctitis.? Given patient's history of rectal cancer, local recurrence cannot be entirely excluded.? Clinical and possible endoscopic evaluation is recommended. 2.? No other area of abnormal bowel wall thickening.? No bowel obstruction.? Mild constipation.? No free fluid or free air.? No abscess collection. 3.? Hepatic steatosis, no discrete hepatic lesion.? ? ? Dictated by: Richard Mariscal M.D. on 05/05/2021 at 13:00 ? ? Approved by: Richard Mraiscal M.D. on 05/05/2021 at 13:04 ? MDM Narrative Medical decision making narrative: 61 year-old male presents to the emergency department for left sided abdominal pain, with concern for UTI. On chart review was noted hold that patient had a polyp removed [address] Barboza which pathology demonstrated as invasive adenocarcinoma moderately differentiated in a background of high-grade dysplasia with carcinoma at the wound edge after 6 months of rectal bleeding. Lab work was fairly unremarkable, no leukocytosis, procalcitonin was 0.05, patient did not have signs of dehydration. Patient endorses that he does not have bowel movements every day it has been 2 days since he has had a bowel movement and when he does he has very large ones. He currently denies rectal pain although endorses pain from his left testicle all the way to his left lower quadrant and left flank area. UA did not show any signs of infection. Patient had tenderness on his lower left quadrant to palpation, CT imaging obtained for concern diverticulitis versus proctitis. CT shows left posterior lateral rectal wall thickening with adjacent fat stranding concerning for proctitis. Given patient's history of rectal cancer, local recurrence cannot be entirely excluded. Clinical and possible endoscopic evaluation is recommended. No other areas of abnormal bowel wall thickening, no bowel obstruction, mild constipation, no free fluid or free air, no abscess collection. Patient was treated for prostatitis with ciprofloxacin and Flagyl. He will follow-up with [facility] Matthews to he was to have a colonoscopy with at this time. He will follow- up with his primary care provider to get a referral for Gastroenterology if he is unable to get a hold of Cindy Matthews. I could not find her in our system to refer him. Patient was given strict return to the emergency department instruc tions. Patient is appropriate and amenable to discharge home. Vital signs are stable on repeat examination is unremarkable. Patient has been informed of results. Patient has been given strict return to ER precautions for any new or worsening symptoms. Patient understands to follow up closely with outpatient providers as instructed. Patient understands plan and agrees to discharge home. All questions and concerns answered at this time. <Chanda Grady DO - Last Filed: 05/06/21 07:46> Lab Data Labs: Lab Results 05/05/21 05/05/21 05/05/21 Range/Units 11:06 11:06 11:06 WBC 7.8 (4.5-11.0) X10^3/uL RBC 4.67 (4.5-5.9) X10^6/uL Hgb 13.3 L (13.5-17.5) g/dL Hct 38.6 L (41-53) % MCV 82.6 (80-100) fL MCH 28.6 (26-34) PG MCHC 34.6 (30-36) % RDW 13.5 (11.6-14.8) % Plt Count 257 (150-400) X10^3/uL Neut % (Auto) 53.2 (50-75) % Lymph % (Auto) 32.6 (25-40) % [place] % (Auto) 10.3 (3-14) % Eos % (Auto) 2.7 (2-4) % Baso % (Auto) 1.2 (0-2) % Neut # (Auto) 4100 (7898-2301) /uL Lymph # (Auto) 2500 (3070-6038) /uL [place] # (Auto) 800 (0-900) /uL Eos # (Auto) 200 (0-450) /uL Baso # (Auto) 100 (0-100) /uL PT 10.1 (10.1-12.7) SECONDS INR 0.9 (0.9-1.3) APTT 34 (26.4-36.2) SECONDS Sodium 136 L (137-145) mmol/L Potassium 4.4 (3.4-5.1) mmol/L Chloride 103 (98-107) mmol/L Carbon Dioxide 24 (22-32) mmol/L BUN 16 (9-20) mg/dL Creatinine 0.78 (0.66-1.25) mg/dL Estimated GFR > 60.0 (>60) mL/min BUN/Creatinine Ratio 20.5 (6-22) Glucose 271 H (80-110) mg/dL Calcium 9.4 (8.4-10.2) mg/dL Total Bilirubin 0.4 (0.2-1.3) mg/dL AST 27 (17-59) IU/L ALT 31 (<50) IU/L Alkaline Phosphatase 70 (38-126) U/L Total Protein 7.2 (6.3-8.2) g/dL Albumin 4.7 (3.5-5.0) g/dL Globulin 2.5 (1.7-4.1) g/dL Albumin/Globulin Ratio 1.9 (1.0-2.8) Lipase 96 (23-300) U/L Procalcitonin (<0.5) ng/mL 05/05/21 Range/Units 11:06 WBC (4.5-11.0) X10^3/uL RBC (4.5-5.9) X10^6/uL Hgb (13.5-17.5) g/dL Hct (41-53) % MCV (80-100) fL MCH (26-34) PG MCHC (30-36) % RDW (11.6-14.8) % Plt Count (150-400) X10^3/uL Neut % (Auto) (50-75) % Lymph % (Auto) (25-40) % [place] % (Auto) (3-14) % Eos % (Auto) (2-4) % Baso % (Auto) (0-2) % Neut # (Auto) (3503-5334) /uL Lymph # (Auto) (4763-7024) /uL [place] # (Auto) (0-900) /uL Eos # (Auto) (0-450) /uL Baso # (Auto) (0-100) /uL PT (10.1-12.7) SECONDS INR (0.9-1.3) APTT (26.4-36.2) SECONDS Sodium (137-145) mmol/L Potassium (3.4-5.1) mmol/L Chloride (98-107) mmol/L Carbon Dioxide (22-32) mmol/L BUN (9-20) mg/dL Creatinine (0.66-1.25) mg/dL Estimated GFR (>60) mL/min BUN/Creatinine Ratio (6-22) Glucose (80-110) mg/dL Calcium (8.4-10.2) mg/dL Total Bilirubin (0.2-1.3) mg/dL AST (17-59) IU/L ALT (<50) IU/L Alkaline Phosphatase (38-126) U/L Total Protein (6.3-8.2) g/dL Albumin (3.5-5.0) g/dL Globulin (1.7-4.1) g/dL Albumin/Globulin Ratio (1.0-2.8) Lipase (23-300) U/L Procalcitonin 0.05 (<0.5) ng/mL Point of Care Testing Glucose POC 268 Urine Dip Bedside Urine Glucose 1000 mg/dl Bedside Urine Bilirubin - Negative Bedside Urine Ketone - Negative Urine Specific [place] 1.025 Bedside Urine Occult Blood - Negative Bedside Urine pH 6.0 Bedside Urine Protein - Negative Bedside Urine Urobilinogen - Negative Bedside Urine Nitrite - Negative Bedside Urine Leukocytes - Negative Esterase Discharge Plan Departure Patient Disposition: Home Clinical Impression: Acute proctitis Instructions: Proctitis Activity Restrictions/Additional Instructions: *You have been diagnosed with proctitis. Please stay hydrated, consider taking a multivitamin, decreased her p.o. intake for 1-2 days and drink lots of clear liquids. Please follow-up with Cindy Matthews and get scheduled for your next colonoscopy as soon as possible. Please return to your primary care provider for a referral to Gastroenterology or General surgery as needed. Hope you start feeling better on these antibiotics, please follow-up with your primary care provider, I was unable to find Cindy or Dr. Sims in my system, so they will be able to request records from us. *What to do: *Please continue to take your regular medications as directed. [ x] New medication prescriptions sent to your pharmacy: [[facility] ] [ ] New medication written as a paper prescription [ ] No new medications given *Please follow up with your primary care provider in 2-3 days, call for an appointment. Let them know you were seen in the Emergency Department and that we asked that you be seen for follow-up. We will electronically transmit a record of today's note if your PCP is in our system *If you do not have a primary care provider please contact [phone] to establish care with one of the [facility] primary care providers. *Return to Emergency Department if you should have any new, worsening or concerning symptoms, such as [fever greater than 101F, chills, worsening pain, persistent vomiting or other bothersome symptoms] Prescriptions: New metronidazole 500 mg tablet 500 mg PO TID 8 Days Qty: 24 0RF ciprofloxacin HCl 500 mg tablet 500 mg PO BID 8 Days Qty: 16 0RF No Action telmisartan 40 mg tablet 40 mg PO DAILY 0RF esomeprazole magnesium 40 mg capsule,delayed release(DR/EC) 40 mg PO DAILY 0RF metformin 500 mg tablet extended release 24 hr 500 mg PO BID 0RF metformin 500 mg tablet extended release 24 hr 1,000 mg PO BID 0RF Stand Alone Forms: Work Release Note <Chanda Grady, - Last Filed: 05/06/21 07:46> Cosign ED Attending Cosignature Attestation: I was immediately available in the department for consultation. Documentation has been reviewed. I agree with assessment and plan.
--- NOTE | 2021-05-05 12:46 | PC.NURSE ---
Patient also reports intermittent LLQ pain and hisotry of abnormal colonoscopy last year. Patient had a polyp with cancer cells removed.
[2021-05-05 13:11] LABS: Procalcitonin 0.05 ng/mL (<0.5)
== END 2021-05-05 14:04 | disposition home or self-care (01) ==
PROVIDERS: Emergency Medicine; Emergency Provider Nurse Practitioner Critical Care Medicine
DX: K62.89 Other specified diseases of anus and rectum (principal); Z87.891 Personal history of nicotine dependence
CPT/HCPCS: 36415; 74177; 80053; 81003; 82962; 83690; 84145; 85025; 85610; 85730; 93005; 93010; 99284; Q9967

== ENCOUNTER 2021-05-11 13:10 | Emergency (ER) | payer OTHER, SELFPAY ==
[2021-05-11 13:15] VITALS: BP 149/92; PULSE 98; RESP 20; TEMP 36.6; O2SAT 98
[2021-05-11 14:11] LABS: Add Manual Diff / Slide Review NO; Basophils Absolute Auto 100 /uL (0-100); Basophils Percent Auto 1.1 % (0-2); Eosinophils Absolute Auto 100 /uL (0-450); Hemoglobin 15.1 g/dL (13.5-17.5); Lymphocytes Absolute Auto 1600 /uL (1100-4500); Lymphocytes Percent Auto 22.6 % (25-40); Mean Corpuscular HGB Conc 34.4 % (30-36); Mean Corpuscular Hemoglobin 28.6 PG (26-34); Mean Corpuscular Volume 83.2 fL (80-100); Monocytes Absolute Auto 900 /uL (0-900); Monocytes Percent Auto 12.1 % (3-14); Neutrophils Absolute Auto 4500 /uL (1500-7000); Neutrophils Percent Auto 62.2 % (50-75); Platelet Count 257 X10^3/uL (150-400); Red Blood Cell Count 5.29 X10^6/uL (4.5-5.9); Red Cell Distribution Width 13.2 % (11.6-14.8); White Blood Cell Count 7.2 X10^3/uL (4.5-11.0)
[2021-05-11 14:23] LABS: Alanine Aminotransferase 141 IU/L (<50); Albumin 5.1 g/dL (3.5-5.0); Albumin Globulin Ratio 1.7 (1.0-2.8); Alkaline Phosphatase 63 U/L (38-126); Aspartate Aminotransferase 120 IU/L (17-59); BUN Creatinine Ratio 14.5 (6-22); Bilirubin Total 0.7 mg/dL (0.2-1.3); Blood Urea Nitrogen 12 mg/dL (9-20); Carbon Dioxide 27 mmol/L (22-32); Chloride 101 mmol/L (98-107); Estimated Glomerular Filt Rate > 60.0 mL/min (>60); Glucose 159 mg/dL (80-110); HEMOLYSIS < 15 (0-50); Potassium 4.6 mmol/L (3.4-5.1); Sodium 138 mmol/L (137-145); Total Protein 8.1 g/dL (6.3-8.2)
[2021-05-11 14:38] VITALS: BP 144/95; PULSE 83; RESP 18; O2SAT 100
--- NOTE | 2021-05-11 14:41 | PC.NURSE ---
Pt states he's been withholding food/calories for 7 days because he was under the impression he was supposed to limit daily PO per provider. Reviewed pt's d/c summary, was told by provider to limit/decrease PO for 1-2 DAYS. Patient using Metamucil daily for constipation, now has diarrhea and feels gassy. Feels shakey and lightheaded, states he's hungry but withholding food/calories, states he intentionally eats very little daily. Still taking antibiotics.
--- NOTE | 2021-05-11 14:59 | DI.CT.S_ITS ---
PROCEDURE: CT ABDOMEN PELVIS WO CON INDICATIONS: abdominal pain/CT ON 05-05 TECHNIQUE: Noncontrast 5 mm thick sections acquired from the diaphragms to the symphysis. 5 mm coronal and sagittal reformats were then performed. For radiation dose reduction, the following was used: automated exposure control, adjustment of mA and/or kV according to patient size. COMPARISON: [facility], MR, MR ABDOMEN WO/W CON, 06/11/2020, 7:14. [facility], CT, CT ABDOMEN PELVIS W CON, 05/05/2021, 12:25. FINDINGS: Image quality: Excellent. ABDOMEN: Lung bases: Lung bases are clear. Heart size is normal. Solid organs: Liver is normal in size. Patchy fatty infiltration can be seen within the liver. Gallbladder wall is not thickened. Pancreas is normal in contours. Spleen is normal in size. No adrenal nodules. Kidneys are normal in size, without hydronephrosis or nephrolithiasis. Peritoneum and bowel: Unenhanced bowel loops demonstrate normal wall thickness and caliber. The previously described rectal wall thickening is no longer definitely seen on these images, although the areas obscured by stool contents. A normal appendix is incidentally noted. No free fluid or air. Nodes and vessels: No retroperitoneal or mesenteric adenopathy by size criteria. Aorta and inferior vena cava are normal in caliber. Atherosclerotic calcification is noted. Miscellaneous: No ventral hernias. PELVIS: Genitourinary: Bladder wall thickness is normal. Miscellaneous: No inguinal adenopathy. There is a mild fat containing left inguinal hernia. Bones: No suspicious bony lesions. No vertebral body compression fractures. Age-appropriate bony degenerative changes are seen. IMPRESSION: The previously seen rectal wall thickening is no longer definitely seen. No definite cause of abdominal pain can be seen on these images. Normal appendix. Incidental note is made of: Patchy fatty liver infiltration Small fat containing left inguinal hernia. Dictated by: Andrea Oreilly M.D. on 05/11/2021 at 14:48 Approved by: Andrea Oreilly M.D. on 05/11/2021 at 14:51
--- NOTE | 2021-05-11 15:00 | ED.RECABL ---
HPI - Recheck/Abnormal Lab/Rx <Bridger Pacheco PA-C - Last Filed: 05/11/21 17:13> General Chief Complaint: Recheck/Abnormal Lab/Rx Stated Complaint: stomach pain, dizzy, chills, Time Seen by Provider: 05/11/21 14:53 Source: patient Mode of arrival: Ambulatory History of Present Illness HPI narrative: Patient is a 61-year-old male who presents to the ED complaining of generalized abdominal pain and bloating that started a week ago. He was seen in the emergency room diagnosed with proctitis given Flagyl and Cipro and told follow-up. He has had not any improvement in his symptoms he did develop some diarrhea that he has noticed it to be darker in nature and loose. He has had 2-3 bowel movements a day for the past 2 days. He has had increased fatigue and lightheadedness over the last day. He denies any nausea or vomiting. No reported fever chills body aches. Abdominal pain is a generalized gas and bloating and distension type of pain. He denies any increase in flatulence. No recent surgeries trauma or fall. Related Data Home Medications Medication Instructions Recorded Confirmed esomeprazole magnesium 40 mg 40 mg PO DAILY 10/03/18 06/05/20 capsule,delayed release metformin 500 mg tablet,extended 500 mg PO BID 10/03/18 06/05/20 release 24 hr telmisartan 40 mg tablet 40 mg PO DAILY 10/03/18 06/05/20 metformin 500 mg tablet,extended 1,000 mg PO BID 05/05/21 05/05/21 release 24 hr Previous Rx's Medication Instructions Recorded dicyclomine 20 mg tablet 20 mg PO TID #10 tab 05/11/21 Allergies Allergy/AdvReac Type Severity Reaction Status Date / Time No Known Drug Allergies Allergy Verified 06/05/20 14:37 Review of Systems <Bridger Pacheco PA-C - Last Filed: 05/11/21 17:13> Review of Systems ROS Unobtainable: All systems reviewed & are unremarkable except as noted in HPI and below Constitutional Constitutional: Denies chills, Denies fatigue, Denies fever(s), Denies frequent falls, Denies lethargy and Denies weakness Eyes Eyes: Denies change in vision, Denies eye discharge, Denies irritation and Denies loss of vision ENT Ears, Nose, Mouth, and Throat: Denies change in voice, Denies dizziness, Denies neck pain, Denies sore throat and Denies throat swelling Cardiovascular Cardiovascular: Denies chest pain, Denies irregular heart rhythm, Denies lightheadedness, Denies palpitations, Denies dyspnea, Denies dyspnea on exertion and Denies orthopnea Respiratory Respiratory: Denies cough, Denies dyspnea, Denies dyspnea on exertion and Denies wheezing Gastrointestinal Gastrointestinal: Reports abdominal pain, Reports change in bowel habits, Reports cramping, Reports diarrhea, Denies nausea and Denies vomiting Genitourinary Genitourinary: Denies hematuria, Denies flank pain, Denies urinary incontinence and Denies urinary urgency Musculoskeletal Musculoskeletal: Denies back pain, Denies muscle weakness, Denies neck pain, Denies numbness and Denies tingling Integumentary/Breasts Skin/Breast: Denies pruritus, Denies erythema, Denies rash and Denies wounds Neurologic Neurologic: Denies behavioral changes, Denies confusion, Denies dizziness, Denies frequent falls, Denies loss of vision, Denies numbness, Denies tingling and Denies weakness Psychiatric Psychiatric: Denies anxiety, Denies behavioral changes, Denies confusion, Denies depression, Denies homicidal ideation and Denies suicidal ideation Endocrine Endocrine: Denies fatigue, Denies flushing and Denies palpitations Hematologic/Lymphatic Hematologic/Lymphatic: Denies easy bruising Allergic/Immunologic Allergic/Immunologic: Denies urticaria, Denies throat swelling and Denies wheezing Patient History <Bridger Pacheco PA-C - Last Filed: 05/11/21 17:13> Medical History (Updated 05/11/21 @ 17:11 by Bridger Pacheco PA-C) Back pain Diabetes GERD (gastroesophageal reflux disease) Surgical History Status post laparoscopic Demario fundoplication Social History household members: spouse Smoking Status: Former smoker alcohol intake: never Smoking Status: Former smoker alcohol intake frequency: other Substance Use Type: does not use Exam <Bridger Pacheco PA-C - Last Filed: 05/11/21 17:13> Initial Vital Signs Initial Vital Signs: Vital Signs Temperature 97.9 F 03/20/22 13:15 Pulse Rate 98 H 05/11/21 13:15 Respiratory Rate 20 05/11/21 13:15 Blood Pressure 149/92 H 05/11/21 13:15 Pulse Oximetry 98 05/11/21 13:15 Const General: cooperative, healthy appearing and comfortable Nutritional Appearance: average body habitus Orientation: Orientation [facility] Head: normal to inspection, normocephalic and atraumatic Ears: hearing grossly normal bilaterally and external ears normal Nose: external nose normal and nares normal Face and sinus: normal facial exam Mouth: oral mucosae normal Resp Effort & Inspection: normal respiratory effort and able to speak in complete sentences Auscultation: clear to auscultation bilaterally Percussion: percussion normal Cardio Palpation: normal PMI Rate: regular rate Rhythm: regular rhythm GI Inspection: distended Palpation: soft Percussion: normal to percussion Auscultation: normal bowel sounds <Kimberly Allred DO - Last Filed: 05/15/21 08:15> Initial Vital Signs Initial Vital Signs: Vital Signs Temperature 97.9 F 05/11/21 13:15 Pulse Rate 98 H 05/11/21 13:15 Respiratory Rate 20 05/11/21 13:15 Blood Pressure 149/92 H 05/11/21 13:15 Pulse Oximetry 98 05/11/21 13:15 Course <Bridger Pacheco PA-C - Last Filed: 05/11/21 17:13> Orders Ordered: Discontinued Medications Sodium Chloride (Normal Saline 0.9%) 1,000 mls @ 150 mls/hr IV CONT SHANNAN Last Infusion: 05/11/21 17:23 Dose: 150 mls/hr Documented by: Admin: 05/11/21 15:35 Dose: 150 mls/hr Documented by: DAJA Vital Signs Vital signs: Vital Signs - 8 hr 05/11/21 13:15 05/11/21 14:38 05/11/21 16:34 Temperature 97.9 F Pulse Rate 98 H 83 92 H Respiratory Rate 20 18 18 Blood Pressure 149/92 H 144/95 H 140/88 Pulse Oximetry 98 100 99 <Kimberly Allred DO - Last Filed: 05/15/21 08:15> Orders Ordered: Discontinued Medications Sodium Chloride (Normal Saline 0.9%) 1,000 mls @ 150 mls/hr IV CONT SHANNAN Last Infusion: 05/11/21 17:23 Dose: 150 mls/hr Documented by: Admin: 05/11/21 15:35 Dose: 150 mls/hr Documented by: DAJA Vital Signs Vital signs: Vital Signs - 8 hr 05/11/21 13:15 05/11/21 14:38 05/11/21 16:34 Temperature 97.9 F Pulse Rate 98 H 83 92 H Respiratory Rate 20 18 18 Blood Pressure 149/92 H 144/95 H 140/88 Pulse Oximetry 98 100 99 MDM - Recheck/Abnormal Lab/Rx <Bridger Pacheco PA-C - Last Filed: 05/11/21 17:13> Differential Diagnosis Differential diagnosis: Likely other Lab Data Result diagrams: 05/11/21 14:00 05/11/21 14:00 Labs: Lab Results 05/11/21 05/11/21 05/11/21 Range/Units 14:00 14:00 14:00 WBC 7.2 (4.5-11.0) X10^3/uL RBC 5.29 (4.5-5.9) X10^6/uL Hgb 15.1 (13.5-17.5) g/dL Hct 44.0 (41-53) % MCV 83.2 (80-100) fL MCH 28.6 (26-34) PG MCHC 34.4 (30-36) % RDW 13.2 (11.6-14.8) % Plt Count 257 (150-400) X10^3/uL Neut % (Auto) 62.2 (50-75) % Lymph % (Auto) 22.6 L (25-40) % [place] % (Auto) 12.1 (3-14) % Eos % (Auto) 2.0 (2-4) % Baso % (Auto) 1.1 (0-2) % Neut # (Auto) 4500 (7481-7966) /uL Lymph # (Auto) 1600 (7486-3422) /uL [place] # (Auto) 900 (0-900) /uL Eos # (Auto) 100 (0-450) /uL Baso # (Auto) 100 (0-100) /uL Sodium 138 (137-145) mmol/L Potassium 4.6 (3.4-5.1) mmol/L Chloride 101 (98-107) mmol/L Carbon Dioxide 27 (22-32) mmol/L BUN 12 (9-20) mg/dL Creatinine 0.83 (0.66-1.25) mg/dL Estimated GFR > 60.0 (>60) mL/min BUN/Creatinine Ratio 14.5 (6-22) Glucose 159 H D (80-110) mg/dL Calcium 10.0 (8.4-10.2) mg/dL Total Bilirubin 0.7 (0.2-1.3) mg/dL AST 120 H (17-59) IU/L ALT 141 H (<50) IU/L Alkaline Phosphatase 63 (38-126) U/L Total Protein 8.1 (6.3-8.2) g/dL Albumin 5.1 H (3.5-5.0) g/dL Globulin 3.0 (1.7-4.1) g/dL Albumin/Globulin Ratio 1.7 (1.0-2.8) Lipase 79 (23-300) U/L Urine Color Urine Appearance Urine pH (4.5-8.0) Ur Specific [place] (1.000-1.035) Urine Protein (Negative) Urine Glucose (UA) (Negative) g/dL Urine Ketones (NEGATIVE) Urine Occult Blood (Negative) Urine Nitrate (Negative) Urine Bilirubin (NEGATIVE) Urine Urobilinogen (0.2) E.U./dL Ur Leukocyte Esterase (NEGATIVE) Urine RBC (0-5/HPF) Urine WBC (0-5/HPF) Ur Squamous Epith Cells (0-5/HPF) Urine Bacteria (None) Ur Culture Indicated? 05/11/21 Range/Units 15:50 WBC (4.5-11.0) X10^3/uL RBC (4.5-5.9) X10^6/uL Hgb (13.5-17.5) g/dL Hct (41-53) % MCV (80-100) fL MCH (26-34) PG MCHC (30-36) % RDW (11.6-14.8) % Plt Count (150-400) X10^3/uL Neut % (Auto) (50-75) % Lymph % (Auto) (25-40) % [place] % (Auto) (3-14) % Eos % (Auto) (2-4) % Baso % (Auto) (0-2) % Neut # (Auto) (2466-5432) /uL Lymph # (Auto) (6594-3786) /uL [place] # (Auto) (0-900) /uL Eos # (Auto) (0-450) /uL Baso # (Auto) (0-100) /uL Sodium (137-145) mmol/L Potassium (3.4-5.1) mmol/L Chloride (98-107) mmol/L Carbon Dioxide (22-32) mmol/L BUN (9-20) mg/dL Creatinine (0.66-1.25) mg/dL Estimated GFR (>60) mL/min BUN/Creatinine Ratio (6-22) Glucose (80-110) mg/dL Calcium (8.4-10.2) mg/dL Total Bilirubin (0.2-1.3) mg/dL AST (17-59) IU/L ALT (<50) IU/L Alkaline Phosphatase (38-126) U/L Total Protein (6.3-8.2) g/dL Albumin (3.5-5.0) g/dL Globulin (1.7-4.1) g/dL Albumin/Globulin Ratio (1.0-2.8) Lipase (23-300) U/L Urine Color Yellow Urine Appearance Clear Urine pH 6.0 (4.5-8.0) Ur Specific [place] <=1.005 (1.000-1.035) Urine Protein Negative (Negative) Urine Glucose (UA) Negative (Negative) g/dL Urine Ketones Negative (NEGATIVE) Urine Occult Blood Negative (Negative) Urine Nitrate Negative (Negative) Urine Bilirubin Negative (NEGATIVE) Urine Urobilinogen 0.2 (0.2) E.U./dL Ur Leukocyte Esterase Negative (NEGATIVE) Urine RBC None seen (0-5/HPF) Urine WBC None seen (0-5/HPF) Ur Squamous Epith Cells 0-1 /hpf (0-5/HPF) Urine Bacteria None seen (None) Ur Culture Indicated? Cult not indicated Point of Care Testing Glucose POC [address] scan - abdomen/pelvis: Radiologist's Impression: PROCEDURE:? CT ABDOMEN PELVIS WO CON ? INDICATIONS:? abdominal pain/CT ON 3-14 ? TECHNIQUE:? Noncontrast 5 mm thick sections acquired from the diaphragms to the symphysis.? 5 mm coronal and sagittal reformats were then performed.? For radiation dose reduction, the following was used:? automated exposure control, adjustment of mA and/or kV according to patient size.? ? COMPARISON:? [facility], MR, MR ABDOMEN WO/W CON, 06/11/2020, 7:14.? [facility], CT, CT ABDOMEN PELVIS W CON, 05/05/2021, 12:25. ? FINDINGS:? Image quality:? Excellent.? ? ABDOMEN:? Lung bases:? Lung bases are clear.? Heart size is normal.? ? Solid organs:? Liver is normal in size.? Patchy fatty infiltration can be seen within the liver.? Gallbladder wall is not thickened.? Pancreas is normal in contours.? Spleen is normal in size.? No adrenal nodules.? Kidneys are normal in size, without hydronephrosis or nephrolithiasis.? ? Peritoneum and bowel:? Unenhanced bowel loops demonstrate normal wall thickness and caliber.? The previously described rectal wall thickening is no longer definitely seen on these images, although the areas obscured by stool contents. A normal appendix is incidentally noted.? ? No free fluid or air.? ? Nodes and vessels:? No retroperitoneal or mesenteric adenopathy by size criteria.? Aorta and inferior vena cava are normal in caliber.? Atherosclerotic calcification is noted.? ? Miscellaneous:? No ventral hernias.? ? ? PELVIS:? Genitourinary:? Bladder wall thickness is normal.? ? Miscellaneous:? No inguinal adenopathy.? There is a mild fat containing left inguinal hernia. ? Bones:? No suspicious bony lesions.? No vertebral body compression fractures.? Age-appropriate bony degenerative changes are seen. ? IMPRESSION:? The previously seen rectal wall thickening is no longer definitely seen. ? No definite cause of abdominal pain can be seen on these images. ? Normal appendix. ? ? ? Incidental note is made of: Patchy fatty liver infiltration Small fat containing left inguinal hernia.? ? Dictated by: Andrea Oreilly M.D. on 05/11/2021 at 14:48 ? ? Approved by: Andrea Oreilly M.D. on 05/11/2021 at 14:51?? MDM Narrative Medical decision making narrative: Patient was evaluated for generalized abdominal pain today. Was seen a few days ago on the and was told that he possibly was having a an infection. He is concerned today because of his increased pain. CT today does not show any evidence of any abnormalities blood work looks unremarkable I think it is likely a result of excess gas and bloating and a prescription for some Bentyl will be sent over to his pharmacy to alleviate some of his abdominal discomfort. I also recommended that he take some Gas-X [id number] as directed as recommended. Patient will be discharged home. <Kimberly Allred, DO - Last Filed: 05/15/21 08:15> Lab Data Labs: Lab Results 05/11/21 05/11/21 05/11/21 Range/Units 14:00 14:00 14:00 WBC 7.2 (4.5-11.0) X10^3/uL RBC 5.29 (4.5-5.9) X10^6/uL Hgb 15.1 (13.5-17.5) g/dL Hct 44.0 (41-53) % MCV 83.2 (80-100) fL MCH 28.6 (26-34) PG MCHC 34.4 (30-36) % RDW 13.2 (11.6-14.8) % Plt Count 257 (150-400) X10^3/uL Neut % (Auto) 62.2 (50-75) % Lymph % (Auto) 22.6 L (25-40) % [place] % (Auto) 12.1 (3-14) % Eos % (Auto) 2.0 (2-4) % Baso % (Auto) 1.1 (0-2) % Neut # (Auto) 4500 (3334-3220) /uL Lymph # (Auto) 1600 (4923-6053) /uL [place] # (Auto) 900 (0-900) /uL Eos # (Auto) 100 (0-450) /uL Baso # (Auto) 100 (0-100) /uL Sodium 138 (137-145) mmol/L Potassium 4.6 (3.4-5.1) mmol/L Chloride 101 (98-107) mmol/L Carbon Dioxide 27 (22-32) mmol/L BUN 12 (9-20) mg/dL Creatinine 0.83 (0.66-1.25) mg/dL Estimated GFR > 60.0 (>60) mL/min BUN/Creatinine Ratio 14.5 (6-22) Glucose 159 H D (80-110) mg/dL Calcium 10.0 (8.4-10.2) mg/dL Total Bilirubin 0.7 (0.2-1.3) mg/dL AST 120 H (17-59) IU/L ALT 141 H (<50) IU/L Alkaline Phosphatase 63 (38-126) U/L Total Protein 8.1 (6.3-8.2) g/dL Albumin 5.1 H (3.5-5.0) g/dL Globulin 3.0 (1.7-4.1) g/dL Albumin/Globulin Ratio 1.7 (1.0-2.8) Lipase 79 (23-300) U/L Urine Color Urine Appearance Urine pH (4.5-8.0) Ur Specific [place] (1.000-1.035) Urine Protein (Negative) Urine Glucose (UA) (Negative) g/dL Urine Ketones (NEGATIVE) Urine Occult Blood (Negative) Urine Nitrate (Negative) Urine Bilirubin (NEGATIVE) Urine Urobilinogen (0.2) E.U./dL Ur Leukocyte Esterase (NEGATIVE) Urine RBC (0-5/HPF) Urine WBC (0-5/HPF) Ur Squamous Epith Cells (0-5/HPF) Urine Bacteria (None) Ur Culture Indicated? 05/11/21 Range/Units 15:50 WBC (4.5-11.0) X10^3/uL RBC (4.5-5.9) X10^6/uL Hgb (13.5-17.5) g/dL Hct (41-53) % MCV (80-100) fL MCH (26-34) PG MCHC (30-36) % RDW (11.6-14.8) % Plt Count (150-400) X10^3/uL Neut % (Auto) (50-75) % Lymph % (Auto) (25-40) % [place] % (Auto) (3-14) % Eos % (Auto) (2-4) % Baso % (Auto) (0-2) % Neut # (Auto) (2268-6410) /uL Lymph # (Auto) (4593-5910) /uL [place] # (Auto) (0-900) /uL Eos # (Auto) (0-450) /uL Baso # (Auto) (0-100) /uL Sodium (137-145) mmol/L Potassium (3.4-5.1) mmol/L Chloride (98-107) mmol/L Carbon Dioxide (22-32) mmol/L BUN (9-20) mg/dL Creatinine (0.66-1.25) mg/dL Estimated GFR (>60) mL/min BUN/Creatinine Ratio (6-22) Glucose (80-110) mg/dL Calcium (8.4-10.2) mg/dL Total Bilirubin (0.2-1.3) mg/dL AST (17-59) IU/L ALT (<50) IU/L Alkaline Phosphatase (38-126) U/L Total Protein (6.3-8.2) g/dL Albumin (3.5-5.0) g/dL Globulin (1.7-4.1) g/dL Albumin/Globulin Ratio (1.0-2.8) Lipase (23-300) U/L Urine Color Yellow Urine Appearance Clear Urine pH 6.0 (4.5-8.0) Ur Specific [place] <=1.005 (1.000-1.035) Urine Protein Negative (Negative) Urine Glucose (UA) Negative (Negative) g/dL Urine Ketones Negative (NEGATIVE) Urine Occult Blood Negative (Negative) Urine Nitrate Negative (Negative) Urine Bilirubin Negative (NEGATIVE) Urine Urobilinogen 0.2 (0.2) E.U./dL Ur Leukocyte Esterase Negative (NEGATIVE) Urine RBC None seen (0-5/HPF) Urine WBC None seen (0-5/HPF) Ur Squamous Epith Cells 0-1 /hpf (0-5/HPF) Urine Bacteria None seen (None) Ur Culture Indicated? Cult not indicated Point of Care Testing Glucose POC 145 Discharge Plan Departure Patient Disposition: Home Clinical Impression: Abdominal pain Instructions: DI for Abdominal Pain-Adult Activity Restrictions/Additional Instructions: Your abdominal pain is likely result of excessive gas. I would recommend he take Gas-X OTC as directed in a prescription for Bentyl was sent over to your pharmacy that she can fill your leisure. If you have any further concerns she can return to the ED or you can follow-up with her PCP. Thank you for the opportunity to care for you today. Prescriptions: New dicyclomine 20 mg tablet 20 mg PO TID Qty: 10 0RF No Action telmisartan 40 mg tablet 40 mg PO DAILY 0RF esomeprazole magnesium 40 mg capsule,delayed release(DR/EC) 40 mg PO DAILY 0RF metformin 500 mg tablet extended release 24 hr 500 mg PO BID 0RF metformin 500 mg tablet extended release 24 hr 1,000 mg PO BID 0RF <Kimberly Allred, - Last Filed: 05/15/21 08:15> Cosign ED Attending Shadeature Attestation: I was immediately available in the department for consultation. Documentation has been reviewed.
[2021-05-11 15:14] LABS: Lipase 79 U/L (23-300)
[2021-05-11] MEDS: SODIUM CHLORIDE 0.9% 1,000 ML 150 ML IV (15:35)
[2021-05-11 15:56] LABS: Appearance Urine UA CLEAR; Bilirubin Urine UA NEGATIVE (NEGATIVE); Color Urine UA YELLOW; Glucose Urine UA NEGATIVE (Negative); Ketones Urine UA NEGATIVE (NEGATIVE); Leukocyte Esterase Urine UA NEGATIVE (NEGATIVE); Nitrite Urine UA NEGATIVE (Negative); Occult Blood Urine UA NEGATIVE (Negative); Protein Urine UA NEGATIVE (Negative); Specific Gravity Urine UA <=1.005 (1.000-1.035); Urobilinogen Urine UA 0.2 E.U./dL (0.2)
[2021-05-11 16:14] LABS: Bacteria Urine None Seen; Culture Indicated Urine Cult Not Indicated; RBC Urine None Seen (0-5/HPF); Squamous Epithelial Cell Urine 0-1 /HPF (0-5/HPF); WBC Urine None Seen (0-5/HPF)
[2021-05-11 16:34] VITALS: BP 140/88; PULSE 92; RESP 18; O2SAT 99
[2021-05-11 17:12] VITALS: BP 144/94; PULSE 88; RESP 18; O2SAT 99
== END 2021-05-11 17:20 | disposition home or self-care (01) ==
PROVIDERS: Emergency Medicine; Emergency Provider Physician Assistant
DX: R10.84 Generalized abdominal pain (principal); Z87.891 Personal history of nicotine dependence
CPT/HCPCS: 36415; 74176; 80053; 81001; 82962; 83690; 85025; 96360; 96361; 99283; 99284

== ENCOUNTER → 2021-11-18 07:51 | Outpatient (CLI) | payer OTHER, SELFPAY | PROVIDERS: Referring Provider Internal Medicine; Visit Provider Internal Medicine | DX: Z23 Encounter for immunization (principal) | CPT/HCPCS: 90471; 90686 ==

== ENCOUNTER 2021-12-03 14:06 | Emergency (ER) | payer OTHER, SELFPAY ==
[2021-12-03 14:17] VITALS: TEMP 36.2; BMI 31.8
--- NOTE | 2021-12-03 14:20 | DI.RAD.S_ITS ---
PROCEDURE: XR LUMBAR SPINE 2-3V INDICATIONS: felt a snap in spine TECHNIQUE: 3 views of the lumbar spine were acquired. COMPARISON: [facility], CR, XR LUMBAR SPINE 2-3V, 10/03/2018, 12:16. [facility], CT, CT ABDOMEN PELVIS WO CON, 05/11/2021, 15:16. FINDINGS: Bones: 5 [id number] vertebrae are present. No substantial curvature or listhesis. No vertebral body compression fractures. No suspicious bony lesions. Multilevel degenerative changes redemonstrated Soft tissues: Overlying bowel gas pattern is normal. Vascular calcifications are present IMPRESSION: No acute lumbar spine fracture visualized radiographically. If symptoms persist, follow-up radiographs and/or CT or MRI may be helpful for further evaluation. Dictated by: Chico Lee M.D. on 12/03/2021 at 14:52 Approved by: Chico Lee M.D. on 12/03/2021 at 14:54
--- NOTE | 2021-12-03 18:46 | ED.BACK ---
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 He states that this is how his low back pain has presented in the past. He states that he is having muscle spasms, feels stiff, his medications have not helped at home with Tylenol and ibuprofen. Patient has a history of rectal cancer he denies any fever, chills, weakness, sensation changes to the distal parts of his legs. He denies any trauma. Related Data Home Medications Medication Instructions Recorded Confirmed esomeprazole magnesium 40 mg 40 mg PO DAILY 10/03/18 06/05/20 capsule,delayed release metformin 500 mg tablet,extended 500 mg PO BID 10/03/18 06/05/20 release 24 hr telmisartan 40 mg tablet 40 mg PO DAILY 10/03/18 06/05/20 metformin 500 mg tablet,extended 1,000 mg PO BID 05/05/21 05/05/21 release 24 hr Previous Rx's Medication Instructions Recorded dicyclomine 20 mg tablet 20 mg PO TID #10 tabs 05/11/21 ketorolac 10 mg tablet 10 mg PO TID PRN pain 5 days #14 12/03/21 tabs lidocaine 5 % topical patch 1 patch topical DAILY PRN back 12/03/21 (Lidoderm) pain #15 ea methocarbamol 500 mg tablet 500 mg PO TID PRN spasms #20 tabs 12/03/21 prednisone 20 mg tablet 40 mg PO DAILY 4 days #8 tabs 12/03/21 Allergies Allergy/AdvReac Type Severity Reaction Status Date / Time No Known Drug Allergies Allergy Verified 06/05/20 14:37 Review of Systems <SAVAGE Hutchins - Last Filed: 12/03/21 20:16> Review of Systems Narrative: Review of systems is negative for acute abnormalities unless otherwise noted in HPI Patient History <SAVAGE Hutchins - Last Filed: 12/03/21 20:16> Medical History (Updated 12/03/21 @ 18:54 by SAVAGE Hutchins) Back pain Diabetes GERD (gastroesophageal reflux disease) Surgical History Status post laparoscopic Demario fundoplication Social History household members: spouse Smoking Status: Former smoker alcohol intake: never Smoking Status: Former smoker alcohol intake frequency: other Substance Use Type: does not use Exam <SAVAGE Hutchins - Last Filed: 12/03/21 20:16> Narrative Exam Narrative: Reviewed vitals signs and nursing notes. General: cooperative, comfortable, in no acute distress, well groomed HEENT: symmetrical facial expressions, moist mucous membranes Cardiovascular: regular rate and rhythm, no peripheral edema, warm extremities Respiratory: normal effort, able to speak in complete sentences, without wheezing, stridor, or abnormal breath sounds. No retractions or tachypnea. MSK: moves all extremities, neurovascularly intact, no weakness, normal tone, no point tenderness along lumbar spine or coccyx, muscle spasms and tension to the left paraspinal muscles, full range of motion, leg lift illicits low back pain, without weakness, able to dorsiflex and plantar extend, no sensation deficit or abnormalities to distal extremities Skin: brisk capillary refill, without pallor or erythema Neuro: normal speech and cognition, A&O x3, ambulatory, clear speech Psych: mental status is grossly normal, congruent mood, normal affect, pleasant and cooperative Initial Vital Signs Initial Vital Signs: Vital Signs Temperature 97.2 F L 12/03/21 14:17 <Kimberly Allred DO - Last Filed: 12/03/21 20:30> Initial Vital Signs Initial Vital Signs: Vital Signs Temperature 97.2 F L 12/03/21 14:17 Course <SAVAGE Hutchins - Last Filed: 12/03/21 20:16> Orders Ordered: ED Orders 12/03/21 14:20 XR lumbar spine 2-3V Stat Discontinued Medications Hydrocodone Bitart/Acetaminophen (Hydrocodone/Acet 5/325 Tablet) 1 tab PO NOW ONE Stop: 12/03/21 18:45 Last Admin: 12/03/21 18:50 Dose: 1 tab Documented By: NR Hydrocodone Bitart/Acetaminophen (Hydrocodone/Acet 5/325 Prepack) 1 bottle MISC SEEINSTR ONE Stop: 12/03/21 18:55 Last Admin: 12/03/21 19:44 Dose: 1 bottle Documented By: NR Ketorolac Tromethamine (Ketorolac 30 Mg/Ml Vial) 15 mg IM NOW ONE Stop: 12/03/21 18:45 Last Admin: 12/03/21 18:51 Dose: 15 mg Documented By: NR Lidocaine (Lidocaine Patch 1 Each Adh..Patch) 1 each TOP NOW ONE Stop: 12/03/21 18:45 Last Admin: 12/03/21 18:50 Dose: 1 each Documented By: JOVAN Methocarbamol (Methocarbamol 500 Mg Tablet) 500 mg PO NOW ONE Stop: 12/03/21 18:45 Last Admin: 12/03/21 18:50 Dose: 500 mg Documented By: NR Prednisone (Prednisone 20 Mg Tablet) 40 mg PO NOW ONE Stop: 12/03/21 18:45 Last Admin: 12/03/21 18:50 Dose: 40 mg Documented By: JOVAN Vital Signs Vital signs: Vital Signs - 8 hr 12/03/21 14:17 12/03/21 19:45 Temperature 97.2 F L Pulse Rate 86 Respiratory Rate 18 Blood Pressure 169/74 H Pulse Oximetry 97 Oxygen Delivery Method Room Air <Kimberly Allred, - Last Filed: 12/03/21 20:30> Orders Ordered: ED Orders 12/03/21 14:20 XR lumbar spine 2-3V Stat Discontinued Medications Hydrocodone Bitart/Acetaminophen (Hydrocodone/Acet 5/325 Tablet) 1 tab PO NOW ONE Stop: 12/03/21 18:45 Last Admin: 12/03/21 18:50 Dose: 1 tab Documented By: JOVAN Hydrocodone Bitart/Acetaminophen (Hydrocodone/Acet 5/325 Prepack) 1 bottle MISC SEEINSTR ONE Stop: 12/03/21 18:55 Last Admin: 12/03/21 19:44 Dose: 1 bottle Documented By: NR Ketorolac Tromethamine (Ketorolac 30 Mg/Ml Vial) 15 mg IM NOW ONE Stop: 12/03/21 18:45 Last Admin: 12/03/21 18:51 Dose: 15 mg Documented By: NR Lidocaine (Lidocaine Patch 1 Each Adh..Patch) 1 each TOP NOW ONE Stop: 12/03/21 18:45 Last Admin: 12/03/21 18:50 Dose: 1 each Documented By: NR Methocarbamol (Methocarbamol 500 Mg Tablet) 500 mg PO NOW ONE Stop: 12/03/21 18:45 Last Admin: 12/03/21 18:50 Dose: 500 mg Documented By: NR Prednisone (Prednisone 20 Mg Tablet) 40 mg PO NOW ONE Stop: 12/03/21 18:45 Last Admin: 12/03/21 18:50 Dose: 40 mg Documented By: NR Vital Signs Vital signs: Vital Signs - 8 hr 12/03/21 14:17 12/03/21 19:45 Temperature 97.2 F L Pulse Rate 86 Respiratory Rate 18 Blood Pressure 169/74 H Pulse Oximetry 97 Oxygen Delivery Method Room Air MDM - Back Pain/Injury <Yanet Bates, [facility] - Last Filed: 12/03/21 20:16> Imaging Data lumbar spine: Radiologist's Impression: PROCEDURE:? XR LUMBAR SPINE 2-3V ? INDICATIONS:? felt a snap in spine ? TECHNIQUE:? 3 views of the lumbar spine were acquired.? ? COMPARISON:? Located Within [facility], CR, XR LUMBAR SPINE 2-3V, 10/03/2018, 12:16.? Located Within [facility], CT, CT ABDOMEN PELVIS WO CON, 05/11/2021, 15:16. ? FINDINGS:? ? Bones:? 5 [id number] vertebrae are present.? No substantial curvature or listhesis.? No vertebral body compression fractures.? No suspicious bony lesions.? Multilevel degenerative changes redemonstrated ? Soft tissues:? Overlying bowel gas pattern is normal.? Vascular calcifications are present ? IMPRESSION:? No acute lumbar spine fracture visualized radiographically.? If symptoms persist, follow-up radiographs and/or CT or MRI may be helpful for further evaluation. ? ? Dictated by: Chico Lee M.D. on 12/03/2021 at 14:52 ? ? Approved by: Chico Lee M.D. on 12/03/2021 at 14:54 ? MDM Narrative Medical decision making narrative: Patient presents with 2days of low back pain, without trauma, and is afebrile. Given history and exam, suspect likely musculoskeletal etiology, they are nontoxic appearing with no overt risk factors for epidural hematoma or abscess. No overt evidence of critical cord compression and has a nonfocal near exam. Neurovascularly intact distally, no evidence of infection, peritoneal signs, hypertensive crisis, or abdominal pain with low suspicion for AAA. No weakness, incontinence, neurovascular or sensation changes, no concerning findings for caudal equina syndrome, lumbar fracture, without paresthesia, neuropathic pain, meningeal signs and fever. This could be a herniated disk, paraspinal or other muscle strain, ligamental injury, arthritic, nephrolithiasis/pyelonephritis, epidural abscess, chronic pain, and other diagnosis? considered less likely. Discharge Plan Departure Patient Disposition: Home Clinical Impression: Acute radicular low back pain Back injury Qualifiers: Encounter type: initial encounter Qualified Code(s): S39.92XA - Unspecified injury of lower back, initial encounter Activity Restrictions/Additional Instructions: *You have been diagnosed with a low back injury with radiculopathy to your left medial thigh. Your x-ray does not show any acute changes which is good news, please try and rest for the next few days, take 2 days off of work, remember to take your GERD medications and take your steroids and anti-inflammatory medications with food please and plenty of water. Please return if you have any incontinence, spike a fever, if you have weakness of your legs. Thank you for trusting us with your care and I hope it feels better soon. *What to do: *Please continue to take your regular medications as directed. [x ] New medication prescriptions sent to your pharmacy: [DOD ] [ ] New medication written as a paper prescription [ ] No new medications given *Please follow up with your primary care provider in 2-3 days, call for an appointment. Let them know you were seen in the Emergency Department and that we asked that you be seen for follow-up. We will electronically transmit a record of today's note if your PCP is in our system *If you do not have a primary care provider please contact [phone] to establish care with one of [facility] primary care providers. *Return to Emergency Department if you should have any new, worsening, or concerning symptoms, such as [fever greater than 101F, chills, worsening pain, persistent vomiting or other bothersome symptoms]. Prescriptions: New methocarbamol 500 mg tablet 500 mg PO TID PRN (Reason: spasms) Qty: 20 0RF lidocaine [Lidoderm] 5 % adhesive patch,medicated 1 patch topical DAILY PRN (Reason: back pain) Qty: 15 0RF Rx Instructions: leave on most painful area for up to 12 hrs prednisone 20 mg tablet 40 mg PO DAILY 4 Days Qty: 8 0RF ketorolac 10 mg tablet 10 mg PO TID PRN (Reason: pain) 5 Days Qty: 14 0RF No Action telmisartan 40 mg tablet 40 mg PO DAILY esomeprazole magnesium 40 mg capsule,delayed release(DR/EC) 40 mg PO DAILY metformin 500 mg tablet extended release 24 hr 500 mg PO BID metformin 500 mg tablet extended release 24 hr 1,000 mg PO BID dicyclomine 20 mg tablet 20 mg PO TID Qty: 10 0RF Stand Alone Forms: Work Release Note Visit Report Forms: Patient Portal/API <Kimberly Allred, - Last Filed: 12/03/21 20:30> Cosign ED Attending Cosclairature Attestation: I was immediately available in the department for consultation. Documentation has been reviewed.
[2021-12-03] MEDS: predniSONE 20 MG TABLET 40 MG PO (18:50)
[2021-12-03] MEDS: methocarbamoL 500 MG TABLET PO (18:50)
[2021-12-03] MEDS: LIDOCAINE PATCH 1 EACH ADH..PATCH TOP (18:50)
[2021-12-03] MEDS: HYDROCODONE/ACET 5/325 TABLET 1 TAB PO (18:50)
[2021-12-03] MEDS: KETOROLAC 30 MG/ML VIAL 15 MG IM (18:51)
[2021-12-03] MEDS: HYDROCODONE/ACET 5/325 PREPACK 1 BOTTLE MISC (19:44)
[2021-12-03 19:45] VITALS: BP 169/74; PULSE 86; RESP 18; O2SAT 97
== END 2021-12-03 19:45 | disposition home or self-care (01) ==
PROVIDERS: Emergency Provider Nurse Practitioner Critical Care Medicine
DX: M54.16 Radiculopathy, lumbar region (principal); S39.92XA Unspecified injury of lower back, initial encounter
CPT/HCPCS: 72100; 96372; 99283; 99284; J1885

== ENCOUNTER 2022-01-12 11:34 | Emergency (ER) | payer OTHER, SELFPAY ==
[2022-01-12 12:09] VITALS: BP 156/87; PULSE 98; RESP 16; TEMP 36.9; O2SAT 98; BMI 31.0
--- NOTE | 2022-01-12 12:15 | DI.RAD.S_ITS ---
PROCEDURE: XR HIP W PEL IF DONE LT 2V INDICATIONS: ongoing left hip pain/rediculopathy TECHNIQUE: AP pelvis with lateral view(s) of the left hip(s). COMPARISON: None. FINDINGS: Bones: No fractures or dislocations. Pelvic ring appears intact. No suspicious bony lesions. Soft tissues: The visualized bowel gas pattern is normal. No suspicious soft tissue calcifications. IMPRESSION: No acute radiographic findings. Dictated by: Leatha Kingston M.D. on 01/12/2022 at 13:02 Approved by: Leatha Kingston M.D. on 01/12/2022 at 13:02
[2022-01-12 17:23] VITALS: BP 145/82; PULSE 83; RESP 18; O2SAT 99
--- NOTE | 2022-01-12 18:06 | ED.LOWEXIN ---
HPI - Extremity Injury (Lower) <Ralf Harvey PA-C - Last Filed: 01/12/22 18:24> General Chief Complaint: Extremity Injury, Lower Stated Complaint: lower back pain, L&I ongoing Time Seen by Provider: 01/12/22 16:28 History of Present Illness HPI Narrative: 61-year-old male with past medical history rectal cancer presents to the ED with 3 weeks of lower back pain. Patient states that he hurt his back 3 weeks ago, following which he felt worsened symptoms over the last 2 days. Patient is complaining of lower back pain that is radiating down the back of his left leg. Patient denies numbness, tingling, weakness. Patient denies urinary hesitancy. Patient denies neck pain, neck stiffness. Patient denies fever, chills. Patient denies chest pain, shortness of breath. Patient denies any new trauma. Patient also complains of left-sided hip pain. Related Data Home Medications Medication Instructions Recorded Confirmed esomeprazole magnesium 40 mg 40 mg PO DAILY 10/03/18 06/05/20 capsule,delayed release metformin 500 mg tablet,extended 500 mg PO BID 10/03/18 06/05/20 release 24 hr telmisartan 40 mg tablet 40 mg PO DAILY 10/03/18 06/05/20 metformin 500 mg tablet,extended 1,000 mg PO BID 05/05/21 05/05/21 release 24 hr Previous Rx's Medication Instructions Recorded dicyclomine 20 mg tablet 20 mg PO TID #10 tabs 05/11/21 lidocaine 5 % topical patch 1 patch topical DAILY PRN back 12/03/21 (Lidoderm) pain #15 ea methocarbamol 500 mg tablet 500 mg PO TID PRN spasms #20 tabs 12/03/21 Allergies Allergy/AdvReac Type Severity Reaction Status Date / Time No Known Drug Allergies Allergy Verified 01/12/22 12:14 Review of Systems <Ralf Harvey PA-C - Last Filed: 01/12/22 18:24> Review of Systems ROS Unobtainable: All systems reviewed & are unremarkable except as noted in HPI and below Constitutional Constitutional: Denies chills, Denies fatigue, Denies fever(s), Denies frequent falls, Denies lethargy and Denies weakness Eyes Eyes: Denies change in vision, Denies eye discharge, Denies irritation and Denies loss of vision ENT Ears, Nose, Mouth, and Throat: Denies change in voice, Denies dizziness, Denies neck pain, Denies sore throat and Denies throat swelling Cardiovascular Cardiovascular: Denies chest pain, Denies irregular heart rhythm, Denies lightheadedness, Denies palpitations, Denies dyspnea, Denies dyspnea on exertion and Denies orthopnea Respiratory Respiratory: Denies cough, Denies dyspnea, Denies dyspnea on exertion and Denies wheezing Gastrointestinal Gastrointestinal: Denies abdominal pain, Denies change in bowel habits, Denies diarrhea, Denies nausea and Denies vomiting Genitourinary Genitourinary: Denies hematuria, Denies flank pain, Denies urinary incontinence and Denies urinary urgency Musculoskeletal Musculoskeletal: Reports back pain, Denies muscle weakness, Denies neck pain, Denies numbness and Denies tingling Comments: Left hip pain, lower back pain radiating down the back of his left leg Integumentary/Breasts Skin/Breast: Denies pruritus, Denies erythema, Denies rash and Denies wounds Neurologic Neurologic: Denies behavioral changes, Denies confusion, Denies dizziness, Denies frequent falls, Denies loss of vision, Denies numbness, Denies tingling and Denies weakness Psychiatric Psychiatric: Denies anxiety, Denies behavioral changes, Denies confusion, Denies depression, Denies homicidal ideation and Denies suicidal ideation Endocrine Endocrine: Denies fatigue, Denies flushing and Denies palpitations Hematologic/Lymphatic Hematologic/Lymphatic: Denies easy bruising Allergic/Immunologic Allergic/Immunologic: Denies urticaria, Denies throat swelling and Denies wheezing Patient History <Ralf Harvey PA-C - Last Filed: 01/12/22 18:24> Medical History Back pain Diabetes GERD (gastroesophageal reflux disease) Surgical History Status post laparoscopic Demario fundoplication Social History household members: spouse Smoking Status: Former smoker alcohol intake: never Smoking Status: Former smoker alcohol intake frequency: other Substance Use Type: does not use Exam <Ralf Harvey PA-C - Last Filed: 01/12/22 18:24> Narrative Exam Narrative: Const General:?cooperative, healthy appearing and comfortable [facility] Head:?normal to inspection Ears:?hearing grossly normal bilaterally Nose:?external nose normal Face and sinus:?normal facial exam and sinuses nontender Mouth:?oral mucosae normal Throat:?posterior oropharynx normal Eyes General:?appearance normal, both eyes and all related structures Neck Neck:?normal visual inspection and no lymphadenopathy noted Resp Effort & Inspection:?normal respiratory effort Auscultation:?clear to auscultation bilaterally Cardio Rate:?regular rate Rhythm:?regular rhythm Musculoskeletal No midline tenderness to palpation. No paraspinal tenderness to palpation. Strength and sensation intact. Gait normal. Patient is neurovascularly intact. Neuro General:?patient alert, patient awake and patient oriented x3 Initial Vital Signs Initial Vital Signs: Vital Signs Temperature 98.5 F 01/12/22 12:09 Pulse Rate 98 H 01/12/22 12:09 Respiratory Rate 16 01/12/22 12:09 Blood Pressure 156/87 H 01/12/22 12:09 Pulse Oximetry 98 01/12/22 12:09 Oxygen Delivery Method 01/12/22 12:09 <Kimberly Allred DO - Last Filed: 01/23/22 11:41> Initial Vital Signs Initial Vital Signs: Vital Signs Temperature 98.5 F 01/12/22 12:09 Pulse Rate 98 H 01/12/22 12:09 Respiratory Rate 16 01/12/22 12:09 Blood Pressure 156/87 H 01/12/22 12:09 Pulse Oximetry 98 01/12/22 12:09 Oxygen Delivery Method 01/12/22 12:09 Course <Ralf Harvey PA-C - Last Filed: 01/12/22 18:24> Orders Ordered: ED Orders 01/12/22 12:15 XR hip w pel if done LT 2V Stat Vital Signs Vital signs: Vital Signs - 8 hr 01/12/22 12:09 01/12/22 17:23 Temperature 98.5 F Pulse Rate 98 H 83 Respiratory Rate 16 18 Blood Pressure 156/87 H 145/82 H Pulse Oximetry 98 99 Oxygen Delivery Method Room Air Room Air <Kimberly Allred DO - Last Filed: 01/23/22 11:41> Orders Ordered: ED Orders 01/12/22 12:15 XR hip w pel if done LT 2V Stat Vital Signs Vital signs: Vital Signs - 8 hr 01/12/22 12:09 01/12/22 17:23 Temperature 98.5 F Pulse Rate 98 H 83 Respiratory Rate 16 18 Blood Pressure 156/87 H 145/82 H Pulse Oximetry 98 99 Oxygen Delivery Method Room Air Room Air MDM - Extremity Injury (Lower) <Ralf Harvey PA-C - Last Filed: 01/12/22 18:24> Imaging Data Extremity x-ray #1: Radiologist's Impression: PROCEDURE:? XR HIP W PEL IF DONE LT 2V ? INDICATIONS:? ongoing left hip pain/rediculopathy ? TECHNIQUE:? AP pelvis with lateral view(s) of the left hip(s).? ? COMPARISON:? None. ? FINDINGS:? ? Bones:? No fractures or dislocations.? Pelvic ring appears intact.? No suspicious bony lesions.? ? Soft tissues:? The visualized bowel gas pattern is normal.? No suspicious soft tissue calcifications.? ? ? IMPRESSION:? No acute radiographic findings. ? Dictated by: Leatha Kingston M.D. on 01/12/2022 at 13:02 ? ? Approved by: Leatha Kingston M.D. on 01/12/2022 at 13:02 ? [facility] Narrative Medical decision making narrative: 61-year-old male with past medical history rectal cancer presents to the ED with 3 weeks of lower back pain. X-ray negative for acute findings. Patient's symptoms likely due to sciatica from the lower back injury. Recommend follow-up with PCP, referral to physiotherapy, further evaluation. ED return precautions were discussed with patient. Patient verbalized understanding. Discharge Plan Departure Patient Disposition: Home Clinical Impression: Back pain Instructions: Low Back Pain Activity Restrictions/Additional Instructions: You were evaluated in the ED today for back pain, left hip pain, left leg pain. Your x-ray was negative for fractures or dislocations. Your symptoms are likely due to a musculoskeletal sprain/strain. Please follow-up with your PCP for further evaluation, recommendation for physical therapy or further imaging. Return to the ED if you note any numbness, tingling, weakness, inability to urinate. Prescriptions: No Action telmisartan 40 mg tablet 40 mg PO DAILY esomeprazole magnesium 40 mg capsule,delayed release(DR/EC) 40 mg PO DAILY metformin 500 mg tablet extended release 24 hr 500 mg PO BID metformin 500 mg tablet extended release 24 hr 1,000 mg PO BID dicyclomine 20 mg tablet 20 mg PO TID Qty: 10 0RF methocarbamol 500 mg tablet 500 mg PO TID PRN (Reason: spasms) Qty: 20 0RF lidocaine [Lidoderm] 5 % adhesive patch,medicated 1 patch topical DAILY PRN (Reason: back pain) Qty: 15 0RF Rx Instructions: leave on most painful area for up to 12 hrs Stand Alone Forms: Work Release Note Visit Report Forms: Patient Portal/API <Kimberly Allred, - Last Filed: 01/23/22 11:41> Cosign ED Attending Cosignature Attestation: I was immediately available in the department for consultation. Documentation has been reviewed.
== END 2022-01-12 17:24 | disposition home or self-care (01) ==
PROVIDERS: Emergency Provider Student in an Organized Health Care Education/Training Program
DX: S39.92XA Unspecified injury of lower back, initial encounter (principal); M54.50 Low back pain, unspecified
CPT/HCPCS: 73502; 99283

== ENCOUNTER → 2022-01-29 14:55 | Outpatient (CLI) | payer OTHER, SELFPAY ==
--- NOTE | 2022-01-29 | DI.MRI.S_ITS ---
PROCEDURE: MR LUMBAR SPINE WO CON INDICATIONS: LUMBAR RADICULOPATHY/LOW BACK PAIN TECHNIQUE: Noncontrast sagittal T1 spin echo and T2 fast echo, sagittal STIR, and T2 fast spin echo through the lumbar spine. In cases with scoliosis, additional coronal T2 fast spin echo may be performed. COMPARISON: None. FINDINGS: Image quality: Excellent. Alignment and Curvature: There is normal bony alignment. Bone Marrow: Marrow is of normal overall signal. No acute vertebral body compression fractures. Spinal Cord: Conus medullaris terminates at the L1 level. Visualized cord demonstrates normal signal and size. Paraspinous Soft Tissues: No paravertebral masses. T12-L1: Normal appearance. L1-L2: Normal appearance. L2-L3: There is a mild diffuse disc bulge present causing some mild bilateral neural foraminal stenosis. No central canal stenosis. L3-L4: There is a mild diffuse disc bulge present causing some moderate bilateral neural foraminal stenosis and moderate central canal stenosis multifactorial in origin secondary to the diffuse disc bulge, ligamentum flavum buckling, bilateral facet degenerative change, and congenitally short pedicles. L4-L5: There is a small to moderate-sized broad-based disc protrusion present most prominent in the left paracentral location which causes [id number] bilateral neural foraminal stenosis. There is also moderate to severe central canal stenosis present multifactorial in origin L5-S1: There is a mild diffuse disc bulge present with a small left paracentral annular tear. There is mild bilateral neural foraminal stenosis. No central canal stenosis. IMPRESSION: 1. Degenerative changes noted throughout the patient's lumbar spine as described above on a level by level basis with the L3-4 and L4-5 level being most severely affected. Dictated by: Randall Jimenez M.D. on 01/29/2022 at 16:43 Approved by: Randall Jimenez M.D. on 01/29/2022 at 16:49
== END ==
PROVIDERS: PCP Family Medicine; Referring Provider Family Medicine; Visit Provider Family Medicine
DX: M47.26 Other spondylosis with radiculopathy, lumbar region (principal); M54.50 Low back pain, unspecified
CPT/HCPCS: 72148

== ENCOUNTER → 2023-01-06 01:15 | Outpatient (CLI) | payer OTHER, SELFPAY | PROVIDERS: PCP Family Medicine; Referring Provider Family Medicine; Visit Provider Family Medicine | DX: Z23 Encounter for immunization (principal) | CPT/HCPCS: 90471; 90686 ==

== ENCOUNTER 2023-05-04 15:34 | Observation (INO) | payer OTHER, SELFPAY ==
[2023-05-04] VITALS (25 sets, daily range): BP systolic 92–181; BP diastolic 50–102; PULSE 55–87; RESP 10–23; TEMP 36.2–36.3; O2SAT 95–99; BMI 32.8
--- NOTE | 2023-05-04 15:41 | DI.RAD.S_ITS ---
PROCEDURE: XR CHEST 1V INDICATIONS: chest pain TECHNIQUE: One view of the chest was acquired. COMPARISON: None. FINDINGS: Surgical changes and devices: None. Lungs and pleura: Lungs are clear. No pleural effusions or pneumothorax. Mediastinum: Mediastinal contours appear normal. Heart size is normal. Bones and chest wall: No suspicious bony lesions. Overlying soft tissues appear unremarkable. IMPRESSION: No acute cardiopulmonary abnormality is seen. Dictated by: Clarissa Schwab MD, PhD on 05/04/2023 at 16:49 Approved by: Clarissa Schwab MD, PhD on 05/04/2023 at 16:49
--- NOTE | 2023-05-04 15:55 | ED.CHESTPAIN ---
HPI - Chest Pain <Kimberlysamuel AllredDO - Last Filed: 05/05/23 07:13> General Chief Complaint: Chest Pain Stated Complaint: tightness in chest/ [facility] sent in Time Seen by Provider: 05/04/23 15:55 Source: patient Mode of arrival: Ambulatory Limitations: no limitations History of Present Illness HPI narrative: 63-year-old male with history of hypertension, dyslipidemia, diabetes on insulin, chronic back pain and GERD who presents with complaint of sensation of pounding in his chest about 4:00 a.m. this morning that woke the patient up from sleep. Patient states it stopped when it went away but he has had some tightness in his chest since then. States he did not feel short of breath. He did not feel lightheaded at that time. Did have an episode here where he appeared to have a rhythm change and felt lightheaded but did not feel a pounding in his chest. Patient states no syncope. No nausea or vomiting. No diaphoresis. No swelling in extremities. No issues with bowel movements or urination. Patient states he normally walks about 5 miles daily. Home medications included telmisartan 40 mg daily, Lantus daily, atorvastatin 40 mg, omeprazole 20 mg, gabapentin daily as well as an aspirin 81 mg daily. Patient has had a prior Demario fundoplication 20 years ago, allergic to nitro states his heart stopped and morphine states he stopped breathing when he received that. No tobacco, occasional alcoholic drink, no recreational drugs. Primary care is through the [facility]. He had a stress test and cardiac workup 15 years ago but nothing since then. Dad from a heart attack around age 49, has 7 siblings patient is the youngest none of them have any known cardiac issues. Patient does note he has been having cramping in his legs and has been taking some potassium and magnesium supplements [id number]. Patient states no new swelling in his extremities no long distance travel or flying. Related Data Home Medications Medication Instructions Recorded Confirmed telmisartan 40 mg tablet 40 mg PO DAILY 10/03/18 05/04/23 atorvastatin 40 mg tablet 40 mg PO DAILY 05/04/23 05/04/23 gabapentin 300 mg capsule 300 mg PO DAILY 05/04/23 05/04/23 insulin glargine 100 unit/mL (3 30 unit SUBCUT BEDTIME 05/04/23 05/04/23 mL) subcutaneous pen (Lantus Solostar U-100 Insulin) omeprazole 20 mg capsule,delayed 20 mg PO DAILY 05/04/23 05/04/23 release Allergies Allergy/AdvReac Type Severity Reaction Status Date / Time morphine Allergy Severe Difficulty Verified 05/04/23 21:56 Breathing nitroglycerin Allergy Severe stopped Verified 05/04/23 21:56 my heart Review of Systems <Kimberly Allred DO - Last Filed: 05/05/23 07:13> Review of Systems ROS Unobtainable: All systems reviewed & are unremarkable except as noted in HPI and below Patient History <Kimberly Allred DO - Last Filed: 05/05/23 07:13> Medical History (Updated 05/05/23 @ 06:16 by Ruddy Chavez MD) History of rectal or anal cancer Rectal cancer Back pain Diabetes GERD (gastroesophageal reflux disease) Surgical History Status post laparoscopic Demario fundoplication Social History household members: spouse Smoking Status: Former smoker alcohol intake: never Smoking Status: Former smoker alcohol intake frequency: other Substance Use Type: does not use Exam <Kimberly Allred DO - Last Filed: 05/05/23 07:13> Narrative Exam Narrative: GENERAL: Alert and oriented x three, male in mild distress HEENT: Head normocephalic, atraumatic, EOMI, pupils reactive, face symmetric, moist mucous membranes NECK: Supple, full range of motion CARDIOVASCULAR: Regular rate and rhythm without murmurs, rubs or gallops. No JVD. No edema bilateral lower extremities. RESPIRATORY: Breath sounds equal bilaterally, no wheezes rales or rhonchi. ABDOMEN: Soft, nontender. Normoactive bowel sounds all 4 quadrants. No guarding or rebound, rigidity, no mass : No CVA tenderness EXTREMITIES: Normal range of motion, no clubbing or edema. Neurovascularly intact NEUROLOGICAL: Cranial nerves II through XII grossly intact. Moving all extremities SKIN: Warm, dry, no petechiae, no rashes or lesions. Initial Vital Signs Initial Vital Signs: Vital Signs Temperature 97.4 F L 05/04/23 15:37 Pulse Rate 80 03/12/24 15:37 Respiratory Rate 17 05/04/23 15:37 Blood Pressure 181/102 H 05/04/23 15:37 Pulse Oximetry 98 05/04/23 15:37 Oxygen Delivery Method Room Air 05/04/23 15:37 <Chanda Grady, DO - Last Filed: 05/05/23 02:39> Initial Vital Signs Initial Vital Signs: Vital Signs Temperature 97.4 F L 05/04/23 15:37 Pulse Rate 80 05/04/23 15:37 Respiratory Rate 17 05/04/23 15:37 Blood Pressure 181/102 H 05/04/23 15:37 Pulse Oximetry 98 05/04/23 15:37 Oxygen Delivery Method Room Air 05/04/23 15:37 Course <Kimberly Allred, DO - Last Filed: 05/05/23 07:13> Orders Ordered: Acetaminophen (Acetaminophen 325 Mg Tablet) 650 mg PO Q6H PRN PRN Reason: Fever/Mild Pain (1-3) Al Hydrox/Mg Hydrox/Simethicone (Mag Hydrox/Alum/Simeth 30 Ml Udc) 30 ml PO Q6HR PRN PRN Reason: Dyspepsia Atorvastatin Calcium (Atorvastatin 20 Mg Tablet) 40 mg PO DAILY [facility] Enoxaparin Sodium (Enoxaparin 40 Mg/0.4 Ml Syringe) 40 mg SUBCUT DAILY [facility] Gabapentin (Gabapentin 300 Mg Capsule) 300 mg PO DAILY [facility] Insulin Glargine (Insulin Glargine 100 Unit/Ml 3ml Pen) 30 unit SUBCUT BEDTIME [facility] Losartan Potassium (Losartan 50 Mg Tablet) 50 mg PO DAILY [facility] Naloxone HCl (Naloxone 0.4 Mg/Ml Vial) 0.2 mg IV Q2MIN PRN PRN Reason: Opiate Reversal Ondansetron HCl (Ondansetron 4 Mg/2 Ml Inj) 4 mg IV Q8HR PRN PRN Reason: Nausea And Vomiting Ondansetron HCl (Ondansetron 4 Mg Odt) 4 mg PO Q8HR PRN PRN Reason: Nausea And Vomiting Pantoprazole Sodium (Pantoprazole Dr 20 Mg Tablet) 20 mg PO 0600 [facility] Discontinued Medications Aspirin (Aspirin 81 Mg Chew Tab) 324 mg PO NOW ONE Stop: 05/04/23 15:42 Last Admin: 05/04/23 16:06 Dose: Not Given Documented By: NATY Amiodarone HCl/Dextrose (Nexterone) 150 mg in 100 mls @ 600 mls/hr IV NOW ONE; Protocol Stop: 05/04/23 16:18 Last Infusion: 05/04/23 16:50 Dose: Infused Documented By: Admin: 05/04/23 16:27 Dose: 600 mls/hr Documented By: NATY Sodium Chloride (Normal Saline 0.9%) 1,000 mls @ 1,000 mls/hr IV BOLUS ONE Stop: 05/04/23 19:23 Last Admin: 05/04/23 18:25 Dose: 1,000 mls/hr Documented By: NATY Insulin Glargine (Insulin Glargine 100 Unit/Ml 3ml Pen) 30 unit SUBCUT BEDTIME SHANNAN Last Admin: 05/04/23 22:41 Dose: 30 unit Documented By: LUIS ARMANDO Co-signed By: HEIDY Lorazepam (Lorazepam 2 Mg/Ml Inj) 0.5 mg IV NOW ONE Stop: 05/04/23 18:12 Last Admin: 05/04/23 18:19 Dose: 0.5 mg Documented By: NATY Vital Signs Vital signs: Vital Signs - 8 hr 05/04/23 18:45 05/04/23 18:45 05/04/23 19:00 Pulse Rate 70 71 Respiratory Rate 16 16 Blood Pressure 148/71 H Pulse Oximetry 98 97 Oxygen Delivery Method 05/04/23 19:01 05/04/23 19:01 05/04/23 19:15 Pulse Rate 69 74 Respiratory Rate 17 Blood Pressure 132/75 Pulse Oximetry 97 97 Oxygen Delivery Method 05/04/23 19:15 05/04/23 19:30 05/04/23 19:30 Pulse Rate 72 Respiratory Rate 19 Blood Pressure 137/79 126/72 Pulse Oximetry 96 Oxygen Delivery Method 05/04/23 19:46 Pulse Rate 72 Respiratory Rate 21 Blood Pressure 157/89 H Pulse Oximetry 96 Oxygen Delivery Method Room Air <Chanda Grady DO - Last Filed: 05/05/23 02:39> Orders Ordered: Acetaminophen (Acetaminophen 325 Mg Tablet) 650 mg PO Q6H PRN PRN Reason: Fever/Mild Pain (1-3) Al Hydrox/Mg Hydrox/Simethicone (Mag Hydrox/Alum/Simeth 30 Ml Udc) 30 ml PO Q6HR PRN PRN Reason: Dyspepsia Atorvastatin Calcium (Atorvastatin 20 Mg Tablet) 40 mg PO DAILY [facility] Enoxaparin Sodium (Enoxaparin 40 Mg/0.4 Ml Syringe) 40 mg SUBCUT DAILY [facility] Gabapentin (Gabapentin 300 Mg Capsule) 300 mg PO DAILY [facility] Insulin Glargine (Insulin Glargine 100 Unit/Ml 3ml Pen) 30 unit SUBCUT BEDTIME [facility] Losartan Potassium (Losartan 50 Mg Tablet) 50 mg PO DAILY [facility] Naloxone HCl (Naloxone 0.4 Mg/Ml Vial) 0.2 mg IV Q2MIN PRN PRN Reason: Opiate Reversal Ondansetron HCl (Ondansetron 4 Mg/2 Ml Inj) 4 mg IV Q8HR PRN PRN Reason: Nausea And Vomiting Ondansetron HCl (Ondansetron 4 Mg Odt) 4 mg PO Q8HR PRN PRN Reason: Nausea And Vomiting Pantoprazole Sodium (Pantoprazole Dr 20 Mg Tablet) 20 mg PO 0600 [facility] Discontinued Medications Aspirin (Aspirin 81 Mg Chew Tab) 324 mg PO NOW ONE Stop: 05/04/23 15:42 Last Admin: 05/04/23 16:06 Dose: Not Given Documented By: NATY Amiodarone HCl/Dextrose (Nexterone) 150 mg in 100 mls @ 600 mls/hr IV NOW ONE; Protocol Stop: 05/04/23 16:18 Last Infusion: 05/04/23 16:50 Dose: Infused Documented By: Admin: 05/04/23 16:27 Dose: 600 mls/hr Documented By: NATY Sodium Chloride (Normal Saline 0.9%) 1,000 mls @ 1,000 mls/hr IV BOLUS ONE Stop: 05/04/23 19:23 Last Admin: 05/04/23 18:25 Dose: 1,000 mls/hr Documented By: NATY Insulin Glargine (Insulin Glargine 100 Unit/Ml 3ml Pen) 30 unit SUBCUT BEDTIME [facility] Last Admin: 05/04/23 22:41 Dose: 30 unit Documented By: LUIS ARMANDO Co-signed By: HEIDY Lorazepam (Lorazepam 2 Mg/Ml Inj) 0.5 mg IV NOW ONE Stop: 05/04/23 18:12 Last Admin: 05/04/23 18:19 Dose: 0.5 mg Documented By: NATY Vital Signs Vital signs: Vital Signs - 8 hr 05/04/23 18:45 05/04/23 18:45 05/04/23 19:00 Pulse Rate 70 71 Respiratory Rate 16 16 Blood Pressure 148/71 H Pulse Oximetry 98 97 Oxygen Delivery Method 05/04/23 19:01 05/04/23 19:01 05/04/23 19:15 Pulse Rate 69 74 Respiratory Rate 17 Blood Pressure 132/75 Pulse Oximetry 97 97 Oxygen Delivery Method 05/04/23 19:15 05/04/23 19:30 05/04/23 19:30 Pulse Rate 72 Respiratory Rate 19 Blood Pressure 137/79 126/72 Pulse Oximetry 96 Oxygen Delivery Method 05/04/23 19:46 Pulse Rate 72 Respiratory Rate 21 Blood Pressure 157/89 H Pulse Oximetry 96 Oxygen Delivery Method Room Air MDM - Chest Pain <Kimberly Allred, - Last Filed: 05/05/23 07:13> Lab Data 05/05/23 06:10 05/05/23 06:10 Labs: Lab Results 05/04/23 05/04/23 Range/Units 16:05 18:19 WBC 8.3 (4.5-11.0) X10^3/uL RBC 5.09 (4.5-5.9) X10^6/uL Hgb 14.5 (13.5-17.5) g/dL Hct 42.5 (41-53) % MCV 83.3 (80-100) fL MCH 28.6 (26-34) PG MCHC 34.3 (30-36) % RDW 13.7 (11.6-14.8) % Plt Count 239 (150-400) X10^3/uL Neut % (Auto) 51.6 (50-75) % Lymph % (Auto) 33.2 (25-40) % [place] % (Auto) 10.4 (3-14) % Eos % (Auto) 3.5 (2-4) % Baso % (Auto) 1.3 (0-2) % Neut # (Auto) 4300 (4301-5038) /uL Lymph # (Auto) 2800 (0485-4310) /uL [place] # (Auto) 900 (0-900) /uL Eos # (Auto) 300 (0-450) /uL Baso # (Auto) 100 (0-100) /uL PT 9.5 (9.4-12.5) SECONDS INR 0.8 L (0.9-1.3) APTT 42 H (25.1-36.5) SECONDS Sodium 139 (137-145) mmol/L Potassium 4.3 (3.4-5.1) mmol/L Chloride 106 (98-107) mmol/L Carbon Dioxide 26 (22-32) mmol/L BUN 15 (9-20) mg/dL Creatinine 0.75 (0.66-1.25) mg/dL Estimated GFR > 60 (>60) mL/min BUN/Creatinine Ratio 20.0 (6-22) Glucose 134 H (80-110) mg/dL Calcium 9.5 (8.4-10.2) mg/dL Magnesium 2.0 (1.6-2.3) mg/dL Total Bilirubin 0.6 (0.2-1.3) mg/dL AST 33 (17-59) IU/L ALT 29 (<50) IU/L Alkaline Phosphatase 70 (38-126) U/L Total Creatine Kinase 136 (55-170) U/L Troponin I < 0.012 < 0.012 (0.01-0.034) ng/mL Total Protein 8.5 H (6.3-8.2) g/dL Albumin 4.9 (3.5-5.0) g/dL Globulin 3.6 (1.7-4.1) g/dL Albumin/Globulin Ratio 1.4 (1.0-2.8) Lipase 116 (23-300) U/L Imaging Data Chest x-ray: Radiologist's Impression: Wilberto Dover??63??M??1960 ? Allergy/Adv: nitroglycerin Close Chest X-Ray (Signed) Clarissa Schwab - 05/04/23 Lumbar Spine MRI (Signed) Randall Jimenez - 01/29/22 Hip X-Ray (Signed) Leatha Kingston - 01/12/22 Lumbar Spine X-Ray (Signed) Chico Lee - 12/03/21 Abdomen/Pelvis CT (Signed) Andrea Oreilly - 05/11/21 Abdomen/Pelvis CT (Signed) Richard Mariscal - 05/05/21 Pelvis MRI (Addendum) Damian López - 06/25/[address] (Signed) NeldaCaitlyn - 06/11/20 Abdomen MRI (Signed) Damian López - 06/11/20 Telemetry Strips 05/20/20 Lumbar Spine X-Ray (Signed) Rene,Scott - 10/03/18 Launch?[address] [address] XRay Report Signed Patient: Wilberto Dover MR#: [id number] : 1960 Acct:[id number] Age/Sex: 63 / M Date of Service: 05/04/23 Loc: ED Accession Number: [id number] Procedure: XR chest 1V Ordering Provider: Kimberly Allred D.O. PROCEDURE: XR CHEST 1V INDICATIONS: chest pain TECHNIQUE: One view of the chest was acquired. COMPARISON: None. FINDINGS: Surgical changes and devices: None. Lungs and pleura: Lungs are clear. No pleural effusions or pneumothorax. Mediastinum: Mediastinal contours appear normal. Heart size is normal. Bones and chest wall: No suspicious bony lesions. Overlying soft tissues appear unremarkable. IMPRESSION: No acute cardiopulmonary abnormality is seen. Dictated by: Clarissa Schwab MD, PhD on 05/04/2023 at 16:49 Approved by: Clarissa Schwab MD, PhD on 05/04/2023 at 16:49 ECG Data Attestation: I personally reviewed and interpreted this ECG as follows: Prior ECG tracings: available for review Interpretation: Sinus rhythm rate 82 FL 138 QRS is 70 QTC of 436 patient has prior from 05/05/[address] changes. While on telemetry patient had a 20 beat wide complex tachycardia. MDM Narrative Medical decision making narrative: 63-year-old male with complaint of pounding heart rate and palpitations this morning with persistent chest tightness since. That was about 4:00 a.m. this morning has been approximately 12 hours did have an episode of what looks like a heart arrhythmia here in the department felt lightheaded but not pounding in the department. Self terminated but appeared to be a 20+ beat wide complex tachycardia. Patient does note he has had some potassium and magnesium supplementation [id number]. Does not have any known history of heart arrhythmias. Remote cardiac workup 15 years ago but does have risk factors for cardiac disease. Labs white count 8.3 hemoglobin of 14 hematocrit of 42 platelets of 239. Coags INR is 0.8 PTT is 42. CMP electrolytes show a potassium of 4.3, Mag of 2, sodium of 139 chloride of 106 with a CO2 of 26 BUN of 15 and a creatinine of 0.5 glucose of 134- LFTs negative troponin Chest x-ray is negative. Repeat troponin and EKG. Patient appear to have wide complex tachycardia self terminated in the department was covered with amiodarone 150 mg while awaiting labs and electrolytes. Consult cardiology, Dr. Mary: Came down and reviewed patient's telemetry strip we were able to print EKG from the tele monitor. After review feels is artifact lead 1 has a regular rhythm throughout although all other leads were certainly suspicious. But states this is artifact. He does recommend observation for chest pain and echo with stress test. <Chanda Grady, - Last Filed: 05/05/23 02:39> Lab Data Labs: Lab Results 05/04/23 05/04/23 Range/Units 16:05 18:19 WBC 8.3 (4.5-11.0) X10^3/uL RBC 5.09 (4.5-5.9) X10^6/uL Hgb 14.5 (13.5-17.5) g/dL Hct 42.5 (41-53) % MCV 83.3 (80-100) fL MCH 28.6 (26-34) PG MCHC 34.3 (30-36) % RDW 13.7 (11.6-14.8) % Plt Count 239 (150-400) X10^3/uL Neut % (Auto) 51.6 (50-75) % Lymph % (Auto) 33.2 (25-40) % [place] % (Auto) 10.4 (3-14) % Eos % (Auto) 3.5 (2-4) % Baso % (Auto) 1.3 (0-2) % Neut # (Auto) 4300 (6154-4722) /uL Lymph # (Auto) 2800 (3218-5031) /uL [place] # (Auto) 900 (0-900) /uL Eos # (Auto) 300 (0-450) /uL Baso # (Auto) 100 (0-100) /uL PT 9.5 (9.4-12.5) SECONDS INR 0.8 L (0.9-1.3) APTT 42 H (25.1-36.5) SECONDS Sodium 139 (137-145) mmol/L Potassium 4.3 (3.4-5.1) mmol/L Chloride 106 (98-107) mmol/L Carbon Dioxide 26 (22-32) mmol/L BUN 15 (9-20) mg/dL Creatinine 0.75 (0.66-1.25) mg/dL Estimated GFR > 60 (>60) mL/min BUN/Creatinine Ratio 20.0 (6-22) Glucose 134 H (80-110) mg/dL Calcium 9.5 (8.4-10.2) mg/dL Magnesium 2.0 (1.6-2.3) mg/dL Total Bilirubin 0.6 (0.2-1.3) mg/dL AST 33 (17-59) IU/L ALT 29 (<50) IU/L Alkaline Phosphatase 70 (38-126) U/L Total Creatine Kinase 136 (55-170) U/L Troponin I < 0.012 < 0.012 (0.01-0.034) ng/mL Total Protein 8.5 H (6.3-8.2) g/dL Albumin 4.9 (3.5-5.0) g/dL Globulin 3.6 (1.7-4.1) g/dL Albumin/Globulin Ratio 1.4 (1.0-2.8) Lipase 116 (23-300) U/L Imaging Data US - DVT: Radiologist's Impression: PROCEDURE: US PERIPH VENOUS LOW EXTREM BI INDICATIONS: leg cramps TECHNIQUE: Real-time imaging, as well as color and pulse Doppler interrogation, were performed of the deep veins of both legs from the inguinal ligament to the popliteal fossa, with documentation of the visualized calf veins. COMPARISON: None. FINDINGS: Right: The common femoral, femoral, popliteal, and the visualized calf veins are normally compressible, and free of intraluminal thrombus. Color and pulse Doppler demonstrate normal phasic intravascular flow. There is normal augmentation response to distal compression maneuver. Left: The common femoral, femoral, popliteal, and the visualized calf veins are normally compressible, and free of intraluminal thrombus. Color and pulse Doppler demonstrate normal phasic intravascular flow. There is normal augmentation response to distal compression maneuver. IMPRESSION: No findings of deep venous thrombosis in either lower extremity. Dictated by: Marquez Nuno M.D. on 05/04/2023 at 18:18 MDM Narrative Medical decision making narrative: 63-year-old male with complaint of pounding heart rate and palpitations this morning with persistent chest tightness since. That was about 4:00 a.m. this morning has been approximately 12 hours did have an episode of what looks like a heart arrhythmia here in the department felt lightheaded but not pounding in the department. Self terminated but appeared to be a 20+ beat wide complex tachycardia. Patient does note he has had some potassium and magnesium supplementation [id number]. Does not have any known history of heart arrhythmias. Remote cardiac workup 15 years ago but does have risk factors for cardiac disease. Labs white count 8.3 hemoglobin of 14 hematocrit of 42 platelets of 239. Coags INR is 0.8 PTT is 42. CMP electrolytes show a potassium of 4.3, Mag of 2, sodium of 139 chloride of 106 with a CO2 of 26 BUN of 15 and a creatinine of 0.5 glucose of 134- LFTs negative troponin Chest x-ray is negative. Repeat troponin and EKG. Patient appear to have wide complex tachycardia self terminated in the department was covered with amiodarone 150 mg while awaiting labs and electrolytes. Consult cardiology, Dr. Mary: Came down and reviewed patient's telemetry strip we were able to print EKG from the tele monitor. After review feels is artifact lead 1 has a regular rhythm throughout although all other leads were certainly suspicious. But states this is artifact. He does recommend observation for chest pain and echo with stress test. Dr. Grady-signed out to me by Dr. Allred. Patient presenting today with palpitations initially concern for ventricular rhythm the monitor however it was determined to be artifact by Cardiology. Patient currently having severe leg cramps. Ultrasound was ordered and negative rule out DVT. However was recommended patient be placed in observation for chest pain rule out by cardiology. accepts patient Critical Care Time <Chanda Grady, DO - Last Filed: 05/05/23 02:39> Critical Care Time Critical Care Time: Yes Total Critical Care Time: 30 Attestation: The high probability of a clinically significant, sudden or life threatening deterioration of the [cardiovascular] system(s) required my full and direct attention, intervention and personal management. The aggregate critical care time was 30 minutes. This time is in addition to time spent performing reported procedures but includes the following: [x] Data Review and interpretation [x] Patient assessment and monitoring of vital signs [x] Documentation [x] Medication orders and management Discharge Plan Departure Patient Disposition: Admitted as Observation Clinical Impression: Chest pain Admit Date/Time: 05/04/23 19:46 Admit Provider: Ruddy Morrow
[2023-05-04 16:09] LABS: Add Manual Diff / Slide Review NO; Basophils Absolute Auto 100 /uL (0-100); Basophils Percent Auto 1.3 % (0-2); Eosinophils Absolute Auto 300 /uL (0-450); Eosinophils Percent Auto 3.5 % (2-4); Hematocrit 42.5 % (41-53); Hemoglobin 14.5 g/dL (13.5-17.5); Lymphocytes Absolute Auto 2800 /uL (1100-4500); Lymphocytes Percent Auto 33.2 % (25-40); Mean Corpuscular HGB Conc 34.3 % (30-36); Mean Corpuscular Hemoglobin 28.6 PG (26-34); Mean Corpuscular Volume 83.3 fL (80-100); Monocytes Absolute Auto 900 /uL (0-900); Monocytes Percent Auto 10.4 % (3-14); Neutrophils Absolute Auto 4300 /uL (1500-7000); Neutrophils Percent Auto 51.6 % (50-75); Platelet Count 239 X10^3/uL (150-400); Red Blood Cell Count 5.09 X10^6/uL (4.5-5.9); Red Cell Distribution Width 13.7 % (11.6-14.8); White Blood Cell Count 8.3 X10^3/uL (4.5-11.0)
--- NOTE | 2023-05-04 16:09 | PC.NURSE ---
At 1552 while IV was being placed, pt had a run of vtach up to 30 beats then converted back to sinus rythym then had another run of vtach shortly after. At that time pt was dizzy/light headed. Dr. Allred notifed, defib pads placed on pt and code cart at bedside.
[2023-05-04 16:16] LABS: INR 0.8 (0.9-1.3); Prothrombin Time 9.5 SECONDS (9.4-12.5)
[2023-05-04 16:18] LABS: PTT Partial Thromboplastin Tim 42 SECONDS (25.1-36.5)
[2023-05-04 16:20] LABS: Alanine Aminotransferase 29 IU/L (<50); Albumin 4.9 g/dL (3.5-5.0); Albumin Globulin Ratio 1.4 (1.0-2.8); Bilirubin Total 0.6 mg/dL (0.2-1.3); Blood Urea Nitrogen 15 mg/dL (9-20); Calcium 9.5 mg/dL (8.4-10.2); Carbon Dioxide 26 mmol/L (22-32); Chloride 106 mmol/L (98-107); Creatine Kinase 136 U/L (55-170); Estimated Glomerular Filt Rate > 60 mL/min (>60); Globulin 3.6 g/dL (1.7-4.1); Glucose 134 mg/dL (80-110); Lipase 116 U/L (23-300); Sodium 139 mmol/L (137-145); Total Protein 8.5 g/dL (6.3-8.2)
[2023-05-04 16:22] LABS: HEMOLYSIS 53 (0-50); Potassium 4.3 mmol/L (3.4-5.1)
[2023-05-04 16:23] LABS: Alkaline Phosphatase 70 U/L (38-126); Aspartate Aminotransferase 33 IU/L (17-59)
[2023-05-04] MEDS: AMIODARONE 150 MG/100 ML PIGGYBACK 600 MG IV (16:27)
[2023-05-04 16:31] LABS: Troponin I < 0.012 ng/mL (0.01-0.034)
--- NOTE | 2023-05-04 18:11 | DI.US.S_ITS ---
PROCEDURE: US PERIPH VENOUS LOW EXTREM BI INDICATIONS: leg cramps TECHNIQUE: Real-time imaging, as well as color and pulse Doppler interrogation, were performed of the deep veins of both legs from the inguinal ligament to the popliteal fossa, with documentation of the visualized calf veins. COMPARISON: None. FINDINGS: Right: The common femoral, femoral, popliteal, and the visualized calf veins are normally compressible, and free of intraluminal thrombus. Color and pulse Doppler demonstrate normal phasic intravascular flow. There is normal augmentation response to distal compression maneuver. Left: The common femoral, femoral, popliteal, and the visualized calf veins are normally compressible, and free of intraluminal thrombus. Color and pulse Doppler demonstrate normal phasic intravascular flow. There is normal augmentation response to distal compression maneuver. IMPRESSION: No findings of deep venous thrombosis in either lower extremity. Dictated by: Marquez Nuno M.D. on 05/04/2023 at 18:18 Approved by: Marquez Nuno M.D. on 05/04/2023 at 18:18
[2023-05-04] MEDS: LORazepam 2 MG/ML INJ 0.5 MG IV (18:19)
--- NOTE | 2023-05-04 18:24 | PC.NURSE ---
verbal order from md farias for NS bolus
[2023-05-04] MEDS: SODIUM CHLORIDE 0.9% 1,000 ML 1000 ML IV (18:25)
--- NOTE | 2023-05-04 18:48 | PC.NURSE ---
Pt experienced 3 jas horses back to back. MD ordered ativan, fluids, and US for pt
[2023-05-04 19:01] LABS: Troponin I < 0.012 ng/mL (0.01-0.034)
--- NOTE | 2023-05-04 19:12 | PC.NURSE ---
Report given to Caitlyn
--- NOTE | 2023-05-04 20:10 | DI.ECHO.S_ITS ---
[facility] +---------+ : : [address] : : : : [id number] : : : : Phone: [phone] Echocardiogram Report + + :Name: ENRIQUE MUHAMMAD Study Date: 05/05/2023 Height: 67 in : :[facility] ReadingLocation: Weight: 210 lb: : Gender: Male BSA: 2.1 m2 : :: 1960 Age: 63 yrs : :Reason For Study: Chest pain : : Performed By: Helen Solis : :Referring: UNSPECIFIED : + + Interpretation Summary Normal sinus rhythm. Normal LV size and wall thickness. Normal wall motion and LV systolic function. Ejection fraction is 65-70%. Normal chamber sizes. No significant valvular abnormalities. No prior study available for comparison. Procedure: A two-dimensional transthoracic echocardiogram with color flow and Doppler was performed. The study quality was technically adequate. There is no prior echocardiogram noted for this patient. The heart rate ranged between 80-85 bpm during the study. Left Ventricle: The left ventricle is normal in size and wall thickness. The ejection fraction is estimated to be 65-70%. Diastolic function could not be accurately assessed due to unobtainable data. Right Ventricle: The right ventricle grossly appears normal in size with probable normal systolic function. Atria: The left atrial size is normal. Right atrial size is normal. The interatrial septum grossly appears intact with no obvious evidence for an atrial septal defect. Mitral Valve: The mitral valve is normal in structure and function. There is no mitral regurgitation noted. Aortic Valve: The aortic valve is trileaflet. The aortic valve opens well. No aortic regurgitation is present. Tricuspid Valve: The tricuspid valve is normal in structure and function. No tricuspid regurgitation. Pulmonic Valve: There is no pulmonic valvular regurgitation. Great Vessels: The aortic root is normal size. The ascending aorta is normal in size. The aortic arch is normal in size. The IVC is of normal diameter and collapses greater than 50% with a sniff. This suggests a low right atrial pressure of 3 mm Hg. Pericardium/ Pleura There is no pericardial effusion. There is no pleural effusion. MMode/2D Measurements & Calculations LVIDd: 3.9 cm LVOT diam: 2.0 cm LVIDs: 1.8 cm Ao root diam: 3.4 cm FS: 54.4 % asc Aorta Diam: 3.3 cm EPSS: 0.57 cm Ao Arch Diam (Prox Trans): 3.6 cm IVSd: 1.00 cm LVPWd: 0.89 cm LV bryan. diameter/BSA (cm/m^2): 1.9 LV sys. diameter/BSA (cm/m^2): 0.85 LA A2 area: 17.5 cm2 RA long axis: 4.8 cm LA A4 area: 14.0 cm2 RA area: 15.8 cm2 LA length (vol): 4.7 cm RA vol: 44.5 ml LA vol: 44.4 ml RA : 21.5 ml/m2 LA vol index: 21.5 ml/m2 IVC diam: 0.68 cm Doppler Measurements & Calculations Ao V2 max: 152.8 cm/sec LVOT Max Cecilio: 92.7 cm/sec Ao V2 mean: 97.9 cm/sec LV V1 max P.4 mmHg Ao max P.3 mmHg LV V1 VTI: 17.8 cm Ao mean P.5 mmHg GINA(I,D): 1.9 cm2 Ao V2 VTI: 28.5 cm GINA(V,D): 1.9 cm2 sev ratio: 0.62 GINA indexed to BSA (cm^2/m^2): 0.93 MV E max cecilio: 90.9 cm/sec PA V2 max: 91.1 cm/sec MV A max cecilio: 76.4 cm/sec PA V2 mean: 66.9 cm/sec MV E/A: 1.2 PA mean P.0 mmHg Med Peak E' Cecilio: 6.0 cm/sec PA pr(Accel): 25.1 mmHg E/E' med: 15.1 Lat Peak E' Cecilio: 10.8 cm/sec E/E' lat: 8.5 E/e' average: 11.8 MV dec time: 0.19 sec SV(LVOT): 54.9 ml Electronically signed by: Malathi Magaña M.D. on Reading Physician:05/05/2023 04:11 PM
[2023-05-04] MEDS: INSULIN GLARGINE 100 UNIT/ML 3ML PEN 30 UNIT SUBCUT (22:41)
[2023-05-05 05:01] VITALS: BP 124/77; PULSE 64; RESP 17; TEMP 36.1; O2SAT 97
--- NOTE | 2023-05-05 05:48 | PM.HP.1 ---
History of Present Illness History of Present Illness Date Patient Seen: 05/04/23 Chief complaint: tightness in chest/ WIC sent in Narrative: 63-year-old male with history of hypertension, dyslipidemia, diabetes on insulin, chronic back pain and GERD who presents with complaint of sensation of pounding in his chest about 4:00 a.m. this morning that woke the patient up from sleep. Patient states it stopped when it went away but he has had some tightness in his chest since then. In the ED he had an episode of dizziness and was suspected for ventricular tachyarrhythmia. Treating And Pumping Supervisor ruled that out. [facility] Medical History (Updated 05/05/23 @ 06:16 by Ruddy Chavez MD) History of rectal or anal cancer Rectal cancer Back pain Diabetes GERD (gastroesophageal reflux disease) Surgical History Status post laparoscopic Demario fundoplication Social History household members: spouse Smoking Status: Former smoker alcohol intake: never Meds Home Medications and Allergies Home Medications Medication Instructions Recorded Confirmed Type telmisartan 40 mg tablet 40 mg PO DAILY 10/03/18 05/04/23 History atorvastatin 40 mg tablet 40 mg PO DAILY 05/04/23 05/04/23 History gabapentin 300 mg capsule 300 mg PO DAILY 05/04/23 05/04/23 History insulin glargine 100 unit/mL (3 30 unit SUBCUT BEDTIME 05/04/23 05/04/23 History mL) subcutaneous pen (Lantus Solostar U-100 Insulin) omeprazole 20 mg capsule,delayed 20 mg PO DAILY 05/04/23 05/04/23 History release Allergies Allergy/AdvReac Type Severity Reaction Status Date / Time morphine Allergy Severe Difficulty Verified 05/04/23 21:56 Breathing nitroglycerin Allergy Severe stopped Verified 05/04/23 21:56 my heart Review of Systems Cardiovascular Comments: palpitations, tightness Gastrointestinal Comments: heartburn Exam Vital Signs (past 8 hours): - 05/05/23 05:01 Temperature 96.9 F L Pulse Rate 64 Respiratory Rate 17 Blood Pressure 124/77 Pulse Oximetry 97 Oxygen Flow Rate 0 Oxygen Delivery Method Room Air Oxygen Flow Rate 0 Resp Other: Normal respiratory effort Cardio Other: RRR, no gallops / murmurs GI Other: not distended Extrem Other: wo swelling Psych Other: appropriate mood and affect Objective Labs 05/04/23 16:05 05/04/23 16:05 Labs: Laboratory Results - last 24 hr 05/04/23 05/04/23 16:05 18:19 WBC 8.3 RBC 5.09 Hgb 14.5 Hct 42.5 MCV 83.3 MCH 28.6 MCHC 34.3 RDW 13.7 Plt Count 239 Neut % (Auto) 51.6 Lymph % (Auto) 33.2 [place] % (Auto) 10.4 Eos % (Auto) 3.5 Baso % (Auto) 1.3 Neut # (Auto) 4300 Lymph # (Auto) 2800 [place] # (Auto) 900 Eos # (Auto) 300 Baso # (Auto) 100 PT 9.5 INR 0.8 L APTT 42 H Sodium 139 Potassium 4.3 Chloride 106 Carbon Dioxide 26 BUN 15 Creatinine 0.75 Estimated GFR > 60 BUN/Creatinine Ratio 20.0 Glucose 134 H Calcium 9.5 Magnesium 2.0 Total Bilirubin 0.6 AST 33 ALT 29 Alkaline Phosphatase 70 Total Creatine Kinase 136 Troponin I < 0.012 < 0.012 Total Protein 8.5 H Albumin 4.9 Globulin 3.6 Albumin/Globulin Ratio 1.4 Lipase 116 Assessment & Plan Assessment and plan (1) Chest pain: Status: Acute (2) Palpitations: Status: Acute (3) HTN (hypertension): Status: Acute (4) Diabetes: Status: Acute (5) GERD (gastroesophageal reflux disease): Status: Acute Assessment & Plan narrative: 1. Chest tightness / palpitations - initial workup w/o evidence of ACS - placed in observation on telemetry - ASA given in ED - BP control, statin - echocardiogram pending - he had unremarkable stress test 15 years ago in the [place] - highly allergic to morphine and nitroglycerine 2. HTN - uncontrolled - continue telmisartan 40 mg daily 3. DM with neuropathy - Lantus, SS - gabapentin 4. GERD / HH / Hx of Demario Fundoplication - PPI DVT prophylaxis - Lovenox Quality VTE Deep Vein Thrombosis/Pulmonary Embolism Present on Admission: No
[2023-05-05 06:27] LABS: Add Manual Diff / Slide Review NO; Basophils Absolute Auto 100 /uL (0-100); Eosinophils Absolute Auto 200 /uL (0-450); Eosinophils Percent Auto 2.5 % (2-4); Hematocrit 39.8 % (41-53); Hemoglobin 13.7 g/dL (13.5-17.5); Lymphocytes Absolute Auto 1900 /uL (1100-4500); Lymphocytes Percent Auto 25.7 % (25-40); Mean Corpuscular HGB Conc 34.4 % (30-36); Mean Corpuscular Hemoglobin 28.6 PG (26-34); Mean Corpuscular Volume 83.2 fL (80-100); Monocytes Absolute Auto 800 /uL (0-900); Monocytes Percent Auto 10.7 % (3-14); Neutrophils Absolute Auto 4400 /uL (1500-7000); Neutrophils Percent Auto 60.1 % (50-75); Platelet Count 219 X10^3/uL (150-400); Red Blood Cell Count 4.78 X10^6/uL (4.5-5.9); Red Cell Distribution Width 13.4 % (11.6-14.8); White Blood Cell Count 7.3 X10^3/uL (4.5-11.0)
[2023-05-05 06:38] LABS: BUN Creatinine Ratio 17.6 (6-22); Blood Urea Nitrogen 15 mg/dL (9-20); Calcium 9.2 mg/dL (8.4-10.2); Carbon Dioxide 28 mmol/L (22-32); Chloride 108 mmol/L (98-107); Cholesterol 185 mg/dL (140-199); Estimated Glomerular Filt Rate > 60 mL/min (>60); Glucose 141 mg/dL (80-110); HDL Cholesterol 46 mg/dL (40-60); HEMOLYSIS < 15 (0-50); LDL Cholesterol Calculated 95 mg/dL (<100); Potassium 4.3 mmol/L (3.4-5.1); Sodium 139 mmol/L (137-145); Triglycerides 221 mg/dL (35-150)
[2023-05-05 08:00] VITALS: BP 143/78; PULSE 67; RESP 16; TEMP 36.1; O2SAT 98
--- NOTE | 2023-05-05 08:07 | PM.HP.1 ---
History of Present Illness History of Present Illness Date Patient Seen: 05/05/23 Chief complaint: tightness in chest/ WIC sent in Narrative: From Night Doctor: 63-year-old male with history of hypertension, dyslipidemia, diabetes on insulin, chronic back pain and GERD who presents with complaint of sensation of pounding in his chest about 4:00 a.m. this morning that woke the patient up from sleep. Patient states it stopped when it went away but he has had some tightness in his chest since then. In the ED he had an episode of dizziness and was suspected for ventricular tachyarrhythmia. Laborer [employer] ruled that out. Additional history: He would palpitations when some element of pain at rest. He has no history of exertional chest pain or exertional dyspnea. He has no known history of heart disease. He was denying any orthopnea or leg edema. His father did of an [place] at age 49. He does not smoke. He is quite active usually walking 5-7 miles a day at work. [facility] Medical History History of rectal or anal cancer Rectal cancer Back pain Diabetes GERD (gastroesophageal reflux disease) Surgical History Status post laparoscopic Demario fundoplication Social History household members: spouse Smoking Status: Former smoker alcohol intake: never Meds Home Medications and Allergies Home Medications Medication Instructions Recorded Confirmed Type telmisartan 40 mg tablet 40 mg PO DAILY 10/03/18 05/04/23 History atorvastatin 40 mg tablet 40 mg PO DAILY 05/04/23 05/04/23 History gabapentin 300 mg capsule 300 mg PO DAILY 05/04/23 05/04/23 History insulin glargine 100 unit/mL (3 30 unit SUBCUT BEDTIME 05/04/23 05/04/23 History mL) subcutaneous pen (Lantus Solostar U-100 Insulin) omeprazole 20 mg capsule,delayed 20 mg PO DAILY 05/04/23 05/04/23 History release Allergies Allergy/AdvReac Type Severity Reaction Status Date / Time morphine Allergy Severe Difficulty Verified 05/04/23 21:56 Breathing nitroglycerin Allergy Severe stopped Verified 05/04/23 21:56 my heart Review of Systems Review of Systems Narrative: All else reviewed and otherwise unremarkable except as noted in the history and physical. Exam Vital Signs (past 8 hours): - 05/05/23 05:01 Temperature 96.9 F L Pulse Rate 64 Respiratory Rate 17 Blood Pressure 124/77 Pulse Oximetry 97 Oxygen Flow Rate 0 Oxygen Delivery Method Room Air Oxygen Flow Rate 0 Narrative Exam Narrative: NAD, alert and oriented, fluent speech, calm. Normocephalic skull, EOMI, anicteric sclera, symmetric pupils. Oropharynx unremarkable, no droop. Neck supple, midline trachea, no adenopathy. Lungs clear, normal rate and effort. Heart regular, no murmur gallop or rub. Abdomen is soft, non distended and non tender. Extremities are free of edema. Skin is free of rash or lesions. Joints are not swollen or deformed. Judgment appears to be normal. Objective Imaging Chest x-ray: Radiologist's impression: No acute cardiopulmonary abnormality is seen. Venous US: Radiologist's impression: IMPRESSION: No findings of deep venous thrombosis in either lower extremity. Labs 05/05/23 06:10 05/05/23 06:10 Labs: Laboratory Results - last 24 hr 05/04/23 05/04/23 05/05/23 16:05 18:19 06:10 WBC 8.3 7.3 RBC 5.09 4.78 Hgb 14.5 13.7 Hct 42.5 39.8 L MCV 83.3 83.2 MCH 28.6 28.6 MCHC 34.3 34.4 RDW 13.7 13.4 Plt Count 239 219 Neut % (Auto) 51.6 60.1 Lymph % (Auto) 33.2 25.7 [place] % (Auto) 10.4 10.7 Eos % (Auto) 3.5 2.5 Baso % (Auto) 1.3 1.0 Neut # (Auto) 4300 4400 Lymph # (Auto) 2800 1900 [place] # (Auto) 900 800 Eos # (Auto) 300 200 Baso # (Auto) 100 100 PT 9.5 INR 0.8 L APTT 42 H Sodium 139 139 Potassium 4.3 4.3 Chloride 106 108 H Carbon Dioxide 26 28 BUN 15 15 Creatinine 0.75 0.85 Estimated GFR > 60 > 60 BUN/Creatinine Ratio 20.0 17.6 Glucose 134 H 141 H Calcium 9.5 9.2 Magnesium 2.0 Total Bilirubin 0.6 AST 33 ALT 29 Alkaline Phosphatase 70 Total Creatine Kinase 136 Troponin I < 0.012 < 0.012 Total Protein 8.5 H Albumin 4.9 Globulin 3.6 Albumin/Globulin Ratio 1.4 Triglycerides 221 H Cholesterol 185 LDL Cholesterol, Calc 95 HDL Cholesterol 46 Lipase 116 Assessment & Plan Assessment & Plan narrative: 1. Chest tightness / palpitations - initial workup w/o evidence of ACS - placed in observation on telemetry - ASA given in ED - BP control, statin - echocardiogram pending - he had unremarkable stress test 15 years ago in the [place] - highly allergic to morphine and nitroglycerine Will order a stress test today. 2. HTN - uncontrolled - continue telmisartan 40 mg daily 3. DM with neuropathy - Lantus, SS - gabapentin 4. GERD / HH / Hx of Demario Fundoplication - PPI DVT prophylaxis - Lovenox Time Spent With Patient Time with patient: 30 to 49 minutes with 50% spent counseling/coordinating care Quality VTE Deep Vein Thrombosis/Pulmonary Embolism Present on Admission: No MIPS - Admit I confirm the patient?s Advance Care Plan is present, Code status is documented, Surrogate decision maker is in patient?s record [If Yes, STOP here]: Yes MIPS - Meds 'Current medications' to include all prescriptions, [id number] products, herbals, cannabis/cannabidiol products, and vitamin/mineral/dietary (nutritional) supplements. I have utilized all available resources to obtain, update, or review the patient?s current medications. [If Yes, STOP here]: Yes
[2023-05-05 08:50] VITALS: BP 143/78
[2023-05-05] MEDS: LOSARTAN 50 MG TABLET PO (08:50)
[2023-05-05] MEDS: GABAPENTIN 300 MG CAPSULE PO (08:50)
[2023-05-05] MEDS: ATORVASTATIN 20 MG TABLET 40 MG PO (08:50)
--- NOTE | 2023-05-05 11:18 | CM.DANOTE ---
DCP Assessment Note Pt is a 63yo M, resident of [place], presented following a visit at the [facility] and experiencing tightness in chest. Pt lives in a house with spouse, Monalisa. 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 PCP: Deepa Killian Payer: [employer] and Self Pay Reviewed chart and team rounds for pt's medical status and initial discharge needs. STERNMAN met w/patient at bedside; introduced self and role. Pt was found to be alert and oriented, sitting up in his bed. STERNMAN discussed discharge plans as pt was aware of pending stress test @1030 and echocardiogram @ 1500. Plan: Pending stress test and echo. Pt eager to discharge home, spouse will transport. CM team will plan to follow clinical course closely for assessment of need and coordination of discharge plan. NEIL Qiu Discharge Planning/Care Management CM Discharge Assessment Start: 05/05/23 11:12 Freq: Status: Active Protocol: Document 05/05/23 11:12 MW (Rec: 05/05/23 11:17 MW [id number]) Discharge Planning Assessment Assigned Corsetier NEIL Ballard DPOA/Assigned Designee Name Anmol Sheldon Contact Information [phone] Advance Directives? No History Provided By Patient,Medical Record Expected Length of Stay 1 Prior Living Arrangements House Household Members spouse Type of transporation used prior to Drives own vehicle admit Independent with ADL's Yes Is patient alert and oriented? Yes Comment Pt prefers to dc home pending echo and stress test. Barriers to Discharge No Discharge Plan Home Whiteboard Updated in Patient Room with Yes name and ext. # of Corsetier Please Provide Date Initial DC 05/05/23 Assessment Was Performed Next Review Type Continued Stay Review
[2023-05-05 12:15] VITALS: BP 142/78; PULSE 69; RESP 16; TEMP 36.2; O2SAT 99
--- NOTE | 2023-05-05 13:12 | PM.DS.1 ---
History of Present Illness History of Present Illness Chief complaint: tightness in chest/ WIC sent in Narrative: From Night Doctor: 63-year-old male with history of hypertension, dyslipidemia, diabetes on insulin, chronic back pain and GERD who presents with complaint of sensation of pounding in his chest about 4:00 a.m. this morning that woke the patient up from sleep. Patient states it stopped when it went away but he has had some tightness in his chest since then. In the ED he had an episode of dizziness and was suspected for ventricular tachyarrhythmia. Judicial Registrar ruled that out. Additional history: He would palpitations when some element of pain at rest. He has no history of exertional chest pain or exertional dyspnea. He has no known history of heart disease. He was denying any orthopnea or leg edema. His father did of an [place] at age 49. He does not smoke. He is quite active usually walking 5-7 miles a day at work. Discharge Providers Provider Date of admission: 05/04/23 19:46 Primary care physician: Deepa Killian DO Discharge provider: Wily Spicer MD Exam Vital Signs (past 8 hours): - 05/05/23 08:00 05/05/23 08:50 Temperature 96.9 F L Pulse Rate 67 Respiratory Rate 16 Blood Pressure 143/78 H 143/78 H Pulse Oximetry 98 Oxygen Flow Rate 0 Oxygen Delivery Method Room Air Oxygen Flow Rate 0 Objective Labs 05/05/23 06:10 05/05/23 06:10 Labs: Laboratory Results - last 24 hr 05/04/23 05/04/23 05/05/23 16:05 18:19 06:10 WBC 8.3 7.3 RBC 5.09 4.78 Hgb 14.5 13.7 Hct 42.5 39.8 L MCV 83.3 83.2 MCH 28.6 28.6 MCHC 34.3 34.4 RDW 13.7 13.4 Plt Count 239 219 Neut % (Auto) 51.6 60.1 Lymph % (Auto) 33.2 25.7 [place] % (Auto) 10.4 10.7 Eos % (Auto) 3.5 2.5 Baso % (Auto) 1.3 1.0 Neut # (Auto) 4300 4400 Lymph # (Auto) 2800 1900 [place] # (Auto) 900 800 Eos # (Auto) 300 200 Baso # (Auto) 100 100 PT 9.5 INR 0.8 L APTT 42 H Sodium 139 139 Potassium 4.3 4.3 Chloride 106 108 H Carbon Dioxide 26 28 BUN 15 15 Creatinine 0.75 0.85 Estimated GFR > 60 > 60 BUN/Creatinine Ratio 20.0 17.6 Glucose 134 H 141 H Calcium 9.5 9.2 Magnesium 2.0 Total Bilirubin 0.6 AST 33 ALT 29 Alkaline Phosphatase 70 Total Creatine Kinase 136 Troponin I < 0.012 < 0.012 Total Protein 8.5 H Albumin 4.9 Globulin 3.6 Albumin/Globulin Ratio 1.4 Triglycerides 221 H Cholesterol 185 LDL Cholesterol, Calc 95 HDL Cholesterol 46 Lipase 116 PFSH Medical History History of rectal or anal cancer Rectal cancer Back pain Diabetes GERD (gastroesophageal reflux disease) Surgical History Status post laparoscopic Demario fundoplication Social History household members: spouse Smoking Status: Former smoker alcohol intake: never Discharge Plan Discharge Plan Patient Disposition: Home Discharge orders & Medications Prescriptions: No Action atorvastatin 40 mg tablet 40 mg PO DAILY gabapentin 300 mg capsule 300 mg PO DAILY omeprazole 20 mg capsule,delayed release(DR/EC) 20 mg PO DAILY insulin glargine [Lantus Solostar U-100 Insulin] 100 unit/mL (3 mL) insulin pen 30 unit SUBCUT BEDTIME Patient Comments: [NO ORIGINAL SIG] telmisartan 40 mg tablet 40 mg PO DAILY Follow up/Referrals: Deepa Killian DO [Primary Care Provider] - Visit Report/Discharge Packet Stand Alone Forms: Patient Portal/API, Stroke Signs & Symptoms Discharge Data Primary Care Provider: Deepa Killian Attending Provider: Ruddy Morrow Admit Date/Time: 05/04/23 19:46 Quality VTE Deep Vein Thrombosis/Pulmonary Embolism Present on Admission: No
--- NOTE | 2023-05-05 15:31 | PM.DS.1 ---
History of Present Illness History of Present Illness Chief complaint: tightness in chest/ WIC sent in Narrative: From Night Doctor: 63-year-old male with history of hypertension, dyslipidemia, diabetes on insulin, chronic back pain and GERD who presents with complaint of sensation of pounding in his chest about 4:00 a.m. this morning that woke the patient up from sleep. Patient states it stopped when it went away but he has had some tightness in his chest since then. In the ED he had an episode of dizziness and was suspected for ventricular tachyarrhythmia. Forest Landscape Ecology Professor ruled that out. Additional history: He would palpitations when some element of pain at rest. He has no history of exertional chest pain or exertional dyspnea. He has no known history of heart disease. He was denying any orthopnea or leg edema. His father did of an OR at age 49. He does not smoke. He is quite active usually walking 5-7 miles a day at work. Discharge Providers Provider Date of admission: 05/04/23 19:46 Discharge Date: 05/05/23 Primary care physician: Deepa Killian DO Consults: None Discharge provider: Wily Spicer MD Summary Hospital Course Discharge Diagnosis: 1. Chest tightness / palpitations, present on admission and resolved. - negative enzymes, telemetry, echo, and stress test. 2. HTN, present on admission and active. - continue telmisartan 40 mg daily 3. DM with neuropathy - Lantus, SS - gabapentin 4. GERD / HH / Hx of Demario Fundoplication - PPI Hospital Course: He was monitored on telemetry and remained in sinus rhythm. He had no further symptoms. He had an echo which was unremarkable and a nuclear stress test wishes read as low risk. He also had negative troponins and negative leg duplex ultrasound. He is discharged with reassurance and will to 2 weeks. If he is further palpitations would consider a Zio patch. Status at Discharge Cognitive/behavioral status at discharge: oriented Functional status at discharge: independent ambulation Overall status at discharge: patient is back to baseline Time Spent with Patient Time spent: Less than 30 minutes Exam Vital Signs (past 8 hours): - 05/05/23 08:00 05/05/23 08:50 05/05/23 12:15 Temperature 96.9 F L 97.1 F L Pulse Rate 67 69 Respiratory Rate 16 16 Blood Pressure 143/78 H 143/78 H 142/78 H Pulse Oximetry 98 99 Oxygen Flow Rate 0 0 Oxygen Delivery Method Room Air Oxygen Flow Rate 0 Narrative Exam Narrative: NAD, alert and oriented. Fluent speech. Lungs are clear, normal rate and effort. Heart is regular, no murmur gallop or rub. Abdomen is soft, non distended. Extremities are free of edema. Objective ECG Impression: Non acute ECG Sinus rhythm rate 82 WA 138 QRS is 70 QTC of 436 patient has prior from 05/05/[address] changes. Imaging Multiple Studies:: Radiologist's impression: Chest x-ray: Radiologist's impression: No acute cardiopulmonary abnormality is seen. Venous US: Radiologist's impression: IMPRESSION: No findings of deep venous thrombosis in either lower extremity. Normal Nuclear stress test Normal ECHO to my read, final pending. Labs 05/05/23 06:10 05/05/23 06:10 Labs: Laboratory Results - last 24 hr 05/04/23 05/04/23 05/05/23 16:05 18:19 06:10 WBC 8.3 7.3 RBC 5.09 4.78 Hgb 14.5 13.7 Hct 42.5 39.8 L MCV 83.3 83.2 MCH 28.6 28.6 MCHC 34.3 34.4 RDW 13.7 13.4 Plt Count 239 219 Neut % (Auto) 51.6 60.1 Lymph % (Auto) 33.2 25.7 [place] % (Auto) 10.4 10.7 Eos % (Auto) 3.5 2.5 Baso % (Auto) 1.3 1.0 Neut # (Auto) 4300 4400 Lymph # (Auto) 2800 1900 [place] # (Auto) 900 800 Eos # (Auto) 300 200 Baso # (Auto) 100 100 PT 9.5 INR 0.8 L APTT 42 H Sodium 139 139 Potassium 4.3 4.3 Chloride 106 108 H Carbon Dioxide 26 28 BUN 15 15 Creatinine 0.75 0.85 Estimated GFR > 60 > 60 BUN/Creatinine Ratio 20.0 17.6 Glucose 134 H 141 H Calcium 9.5 9.2 Magnesium 2.0 Total Bilirubin 0.6 AST 33 ALT 29 Alkaline Phosphatase 70 Total Creatine Kinase 136 Troponin I < 0.012 < 0.012 Total Protein 8.5 H Albumin 4.9 Globulin 3.6 Albumin/Globulin Ratio 1.4 Triglycerides 221 H Cholesterol 185 LDL Cholesterol, Calc 95 HDL Cholesterol 46 Lipase 116 PFSH Medical History History of rectal or anal cancer Rectal cancer Back pain Diabetes GERD (gastroesophageal reflux disease) Surgical History Status post laparoscopic Demario fundoplication Social History household members: spouse Smoking Status: Former smoker alcohol intake: never Discharge Assessment & Plan Assessment and Plan Assessment: 1. Chest tightness / palpitations, present on admission and resolved. - negative enzymes, telemetry, echo, and stress test. 2. HTN, present on admission and active. - continue telmisartan 40 mg daily 3. DM with neuropathy - Lantus, SS - gabapentin 4. GERD / HH / Hx of Demario Fundoplication - PPI Plan of Treatment: Discharge home with no change in medications. He will follow up with PCP within 1-2 weeks. Consider Zio patch if he has further palpitations. Discharge Plan Discharge Plan Patient Disposition: Home Provider Discharge Comment: Stable for discharge with normal echo and stress test. Follow up with her primary care doctor within the next 1-2 weeks or sooner if palpitations. Discharge orders & Medications Prescriptions: Continued atorvastatin 40 mg tablet 40 mg PO DAILY gabapentin 300 mg capsule 300 mg PO DAILY omeprazole 20 mg capsule,delayed release(DR/EC) 20 mg PO DAILY insulin glargine [Lantus Solostar U-100 Insulin] 100 unit/mL (3 mL) insulin pen 30 unit SUBCUT BEDTIME Patient Comments: [NO ORIGINAL SIG] telmisartan 40 mg tablet 40 mg PO DAILY Follow up/Referrals: Deepa Killian DO [Primary Care Provider] - Discharge Health Status Multidrug resistant organism: No MDRO Diet/Activity/Treatments Diet: Carb-consistent/Diabetic Skin/Wound/Dressing Care Report to your healthcare provider any signs of infection, such as:: increased pain Visit Report/Discharge Packet Stand Alone Forms: Patient Portal/API Discharge Data Primary Care Provider: Deepa Killian Attending Provider: Ruddy Morrow Admit Date/Time: 05/04/23 19:46 Quality VTE Deep Vein Thrombosis/Pulmonary Embolism Present on Admission: No
--- NOTE | 2023-05-05 16:31 | PC.NURSE ---
Pt is dressed and ready for discharge home with Spouse. IV's and Tele removed. Went over d/c instructions with Pt and Spouse-discussed d/c meds, time of last dose, reviewed stroke education, discussed drinking fluids to prevent dehydration, discussed coming to the ER or contacting his doctor if he is having chest pain or palpitations and following up in 1-2 weeks. Pt denied further questions and will be taken out via w/c by [employer] to pov with Spouse and all belongings.
--- NOTE | 2023-05-06 00:57 | DI.NM.S_ITS ---
DATE OF SERVICE: 05/05/2023 PROCEDURE PERFORMED: Exercise treadmill stress and rest myocardial perfusion imaging with gating to assess ejection fraction and regional wall motion. ORDERING PROVIDER: Dr. Wily Spicer. INDICATIONS: The patient is a 63-year-old male with atypical chest discomfort and palpitations. CARDIAC STRESS: The patient was able to exercise for 8 minutes and 30 seconds on a standard Anthony protocol suggesting average exercise capacity with an JOHN of -2%, achieving 9.3 METS. He had a normal heart rate and blood pressure response to exercise, achieving a maximum heart rate of 166 BPM (105% of his predicted maximum). He had no chest discomfort or other anginal symptoms. His resting ECG shows sinus rhythm with normal ST segments. There are no significant ST-segment shifts or arrhythmias with stress. At 6 minutes and 45 seconds of exercise at a heart rate of 160 BPM, 27.5 millicuries of technetium-99m Myoview was injected and he was imaged 20 minutes later using a gated SPECT acquisition protocol. Earlier in the day while at rest, he had been injected with 10.1 millicuries of technetium-99m Myoview and was imaged 40 minutes later, again using a gated SPECT acquisition protocol. FINDINGS: 1. Raw data. There is fairly good myocardial tracer uptake although, the resting images are of somewhat inferior quality with some slight motion noted. The lung/heart ratio is normal at 0.35 with a normal TID ratio of 0.41. 2. Quantitative gated SPECT: Post-stress ejection fraction is estimated to be 87% without any focal wall motion abnormality. The resting ejection fraction is estimated to be 67%, although again the images are of slightly suboptimal quality. Resting end-diastolic volume is likely normal at 104 mL. 3. Myocardial perfusion imaging: Post-stress supine images show a normal perfusion pattern without any perfusion defects, supported by normal perfusion imaging in the prone position. The resting images are somewhat suboptimal quality and show a slightly heterogeneous perfusion pattern but with no areas of obvious improvement. IMPRESSION: 1. Normal myocardial perfusion study. 2. No evidence for myocardial ischemia or previous myocardial infarction. 3. Normal left ventricular systolic function without focal wall motion abnormality. 4. Average exercise capacity without angina or ECG evidence of ischemia. There were no arrhythmias. Wilberto Dover - RANDI/alvarez/FRANK doc#: [id number]/job#: [id number] dd: 05/05/2023 12:56:00 dt: 05/06/2023 00:45:00 DICTATING MD/COPIES TO: Bakari Mary MD; Wily Spicer MD COPIES MNE: GEOVANI;
== END 2023-05-05 16:40 | disposition home or self-care (01) ==
LOC: ED 19:45 → AC 19:46
PROVIDERS: Emergency Medicine; Admitting Provider Internal Medicine; Emergency Provider Emergency Medicine; PCP Family Medicine; Referring Provider Emergency Medicine; Visit Provider Internal Medicine
DX: R07.9 Chest pain, unspecified (principal); R00.2 Palpitations; K21.9 Gastro-esophageal reflux disease without esophagitis; I10 Essential (primary) hypertension; E11.40 Type 2 diabetes mellitus with diabetic neuropathy, unspecified; Z79.4 Long term (current) use of insulin
CPT/HCPCS: 36415; 71045; 78452; 80048; 80053; 80061; 82550; 82962; 83690; 83735; 84484; 85025; 85610; 85730; 93005; 93010; 93017; 93306; 93970; 96365; 96372; 96375; 99284; 99291; G0378; A9502; J0282; J2060

== ENCOUNTER → 2024-01-17 | Outpatient (CLI) | payer OTHER, SELFPAY ==
[2023-05-04 20:08] VITALS: BMI 32.8
== END ==
PROVIDERS: PCP Family Medicine; Referring Provider Internal Medicine; Visit Provider Internal Medicine
DX: Z23 Encounter for immunization (principal)
CPT/HCPCS: 90471; 90656

== ENCOUNTER → 2024-04-03 09:34 | Outpatient (CLI) | payer OTHER, SELFPAY ==
[2023-05-04 20:08] VITALS: BMI 32.8
--- NOTE | 2024-04-03 09:36 | DI.RAD.S_ITS ---
PROCEDURE: XR LUMBAR SPINE MIN 4V INDICATIONS: BACK PAIN TECHNIQUE: 5 views of the lumbar spine were acquired, including bilateral oblique views. COMPARISON: [facility], CR, XR LUMBAR SPINE 2-3V, 12/03/2021, 14:27. [facility], CR, XR LUMBAR SPINE 2-3V, 10/03/2018, 12:16. FINDINGS: Five non rib-bearing lumbar vertebrae are present. Minimal dextrocurvature of the lumbar spine with the apex at L3. Otherwise, straightening of the lumbar lordosis. The vertebral body heights are preserved. Mild intervertebral disc height loss at L3-L4 and L5-S1. Multilevel facet arthropathy, moderate at L4-L5 and L5-S1. Mild hypertrophy of the L3, L4, and L5 spinous processes. Aortic vascular calcifications. IMPRESSION: Multilevel lumbar osteoarthrosis without acute radiographic abnormality. Dictated by: Gen Bai M.D. on 04/03/2024 at 10:29 Approved by: Gen Bai M.D. on 04/03/2024 at 10:47
== END ==
PROVIDERS: PCP Family Medicine; Referring Provider Physical Medicine & Rehabilitation; Visit Provider Physical Medicine & Rehabilitation
DX: M47.816 Spondylosis without myelopathy or radiculopathy, lumbar region (principal); M47.817 Spondylosis without myelopathy or radiculopathy, lumbosacral region; M54.9 Dorsalgia, unspecified
CPT/HCPCS: 72110

== ENCOUNTER 2024-04-25 06:58 | Outpatient (CLI) | payer OTHER, SELFPAY ==
[2023-05-04 20:08] VITALS: BMI 32.8
[2024-04-25] VITALS (9 sets, daily range): BP systolic 135–181; BP diastolic 63–90; PULSE 83–92; RESP 14–18; TEMP 36.7; O2SAT 95–100
[2024-04-25] MEDS: MIDAZOLAM 2 MG/2 ML VIAL IV (08:22)
[2024-04-25] MEDS: iopamidoL 15 ML VIAL 3 ML INJ (08:26)
[2024-04-25] MEDS: DEXAMETHASONE 10 MG/ML VIAL 20 MG INJ (08:26)
[2024-04-25] MEDS: BETAMETHASONE 30 MG/5 ML MDV 12 MG INJ ×2 (08:29→08:30)
[2024-04-25] MEDS: BUPIVACAINE 0.25% (PF) VIAL 2 ML INJ (08:29)
--- NOTE | 2024-04-25 08:44 | PM.PROC.IR.1 ---
Date/Time/Diagnoses Date of procedure: 04/25/24 Time of procedure: 08:44 Pre-procedure diagnosis: 1. FORAMINAL STENOSIS WITH LE SYMPTOMS Procedure Notes Procedure: 1. FLUOROSCOPICALLY GUIDED CONTRAST CONTROLLED TRANSFORAMINAL EPIDURAL STEROID INJECTION - BILATERAL L4/5 TFESI Indications: Wilberto is referred by Dr. Killian for treatment of Foraminal Stenosis with bilateral LE Symptoms Physician: Bakari Art Total Fluoroscopy time (seconds): 11 Total sedation minutes: 18 Complications: none Procedure in detail & Post-procedure care: FINDINGS Foraminal Nerve Root Compression secondary to disc disease and facet hypertrophy DESCRIPTION OF PROCEDURE Following review of allergy and review of potential side effects and complications, including, but not necessarily limited to, infection, allergic reaction, local tissue breakdown, stroke, temporary or permanent nerve injury, paralysis, and possible , the patient indicated that the patient understood and agreed to proceed. An informed consent document was signed by the patient, witnessed by a nurse, and placed in the patient's chart. Additionally, other treatment options including medications, modalities, and physical therapy were reviewed with the patient. After review of previous anaesthesic history and IV conscious sedation the patient was deemed safe to proceed with today?s procedure with IV conscious sedation as ASA class II designation. Safety time-out was performed to confirm patient ID, procedure to be performed and site of procedure. IV sedation was accomplished with a combination of 2mg of Versed was administered by the RN after DO order, titrated to patient comfort during the course of the procedure while the patient remained responsive to all verbal commands In the prone position following sterile prep and drape of the lumbar region, the right L4/5 posterior neuroforamen was identified fluoroscopically. The skin was anesthetized via a 25-gauge 1.5-inch needle with 1% lidocaine solution. At this point, a 25-gauge 3.5-inch spinal needle was atraumatically introduced and advanced under fluoroscopic guidance through the posterior right L4/5 neuroforamen to approximately the anterior aspect of the canal. Depth was confirmed on lateral view. Following negative aspiration, injection of approximately 1.5cc of Isovue 200 under live fluoroscopy in the AP view confirmed excellent flow along the nerve root, into the epidural space without vascular or intrathecal uptake observed Radiological data, including multiple fluoroscopic views of the lumbosacral spine, reveal a spinal needle at the right L4/5 posterior neuroforamen. Subsequent views show flow of contrast material flowing superiorly and inferiorly along the nerve root confirming epidural flow. Subsequently, a test dose of 1.5cc of 1% lidocaine solution was administered and patient was observed for two minutes for signs or symptoms of complications, including abdominal pain, shortness of breath, bilateral upper or lower extremity weakness, nausea and vomiting, prior to steroid injection. At this point, a total of 2cc or 10mg of dexamethasone and 6mg betamethasone was injected without incident. Attention was then refocused to the left L4/5 level where the identical procedure was replicated. The procedure tolerated the procedure well without signs or symptoms of complications prior to transfer to the recovery area continued monitoring without incident. The patient was then transferred to the recovery area where they were observed for an appropriate time after the injection. The patient reported a VAS score of 7 prior to the procedure and a post-procedure VAS of 0. POST OP INSTRUCTIONS The patient was provided a Pain Log to continue to record their response to the target-specific procedure prior to follow-up visit with their referring physician. Additionally, specific post-injection care instructions and a contact number to our office were provided if concerns arise regarding possible complications associated with the procedure are suspected.
== END 2024-04-25 09:00 | disposition home or self-care (01) ==
PROVIDERS: PCP Family Medicine; Referring Provider Physical Medicine & Rehabilitation; Visit Provider Physical Medicine & Rehabilitation
DX: M48.061 Spinal stenosis, lumbar region without neurogenic claudication (principal); M51.16 Intervertebral disc disorders with radiculopathy, lumbar region; M47.26 Other spondylosis with radiculopathy, lumbar region
CPT/HCPCS: 64483; 99152; J0702; J1100; J2250; J3490

== ENCOUNTER 2024-08-17 14:33 | Outpatient (CLI) | payer OTHER, SELFPAY ==
[2023-05-04 20:08] VITALS: BMI 32.8
[2024-08-08 16:01] VITALS: BMI 32.8
[2024-08-17] VITALS (10 sets, daily range): BP systolic 134–176; BP diastolic 77–92; PULSE 74–83; RESP 14–16; TEMP 36.1; O2SAT 96–98
[2024-08-17] MEDS: MIDAZOLAM 2 MG/2 ML VIAL IV ×2 (16:03→16:10)
[2024-08-17] MEDS: BUPIVACAINE 0.25% (PF) VIAL 2 ML INJ (16:07)
[2024-08-17] MEDS: BETAMETHASONE 30 MG/5 ML MDV 12 MG INJ (16:07)
[2024-08-17] MEDS: DEXAMETHASONE 10 MG/ML VIAL INJ (16:07)
[2024-08-17] MEDS: iopamidoL 15 ML VIAL 3 ML INJ (16:07)
[2024-08-17] MEDS: BETAMETHASONE 30 MG/5 ML MDV 6 MG INJ (16:10)
--- NOTE | 2024-08-17 16:24 | PM.PROC.IR.1 ---
Date/Time/Diagnoses Date of procedure: 08/17/24 Time of procedure: 16:24 Pre-procedure diagnosis: 1. FORAMINAL STENOSIS WITH LE SYMPTOMS Post-procedure diagnosis: same Procedure Notes Procedure: 1. FLUOROSCOPICALLY GUIDED CONTRAST CONTROLLED TRANSFORAMINAL EPIDURAL STEROID INJECTION - LEFT L3/4 TFESI Indications: Luke is referred by Dr. Killian for treatment of Foraminal Stenosis with left LE Symptoms Physician: Bakari Art Total Fluoroscopy time (seconds): 7 Total sedation minutes: 17 Complications: none Procedure in detail & Post-procedure care: FINDINGS Foraminal Nerve Root Compression secondary to disc disease and facet hypertrophy DESCRIPTION OF PROCEDURE Following review of allergy and review of potential side effects and complications, including, but not necessarily limited to, infection, allergic reaction, local tissue breakdown, stroke, temporary or permanent nerve injury, paralysis, and possible , the patient indicated that the patient understood and agreed to proceed. An informed consent document was signed by the patient, witnessed by a nurse, and placed in the patient's chart. Additionally, other treatment options including medications, modalities, and physical therapy were reviewed with the patient. After review of previous anaesthesic history and IV conscious sedation the patient was deemed safe to proceed with today?s procedure with IV conscious sedation as ASA class II designation. Safety time-out was performed to confirm patient ID, procedure to be performed and site of procedure. IV sedation was accomplished with a combination of 2mg of Versed was administered by the RN after DO order, titrated to patient comfort during the course of the procedure while the patient remained responsive to all verbal commands In the prone position following sterile prep and drape of the lumbar region, the left L3/4 posterior neuroforamen was identified fluoroscopically. The skin was anesthetized via a 25-gauge 1.5-inch needle with 1% lidocaine solution. At this point, a 25-gauge 3.5-inch spinal needle was atraumatically introduced and advanced under fluoroscopic guidance through the posterior left L3/4 neuroforamen to approximately the anterior aspect of the canal. Depth was confirmed on lateral view. Following negative aspiration, injection of approximately 1.5 cc of Isovue 200 under live fluoroscopy in the AP view confirmed excellent flow along the nerve root, into the epidural space without vascular or intrathecal uptake observed Radiological data, including multiple fluoroscopic views of the lumbosacral spine, reveal a spinal needle at the left L3/4 posterior neuroforamen. Subsequent views show flow of contrast material flowing superiorly and inferiorly along the nerve root confirming epidural flow. Subsequently, a test dose of 1.5cc of 0.25% marcaine solution was administered and patient was observed for two minutes for signs or symptoms of complications, including abdominal pain, shortness of breath, bilateral upper or lower extremity weakness, nausea and vomiting, prior to steroid injection. At this point, a total of 4cc or 10mg of dexamethasone and 18mg betamethasone was injected without incident. The patient tolerated the procedure well without signs or symptoms of complications prior to transfer to the recovery area continued monitoring without incident. The patient was then transferred to the recovery area where they were observed for an appropriate time after the injection. The patient reported a VAS score of 7 prior to the procedure and a post-procedure VAS of 1. POST OP INSTRUCTIONS The patient was provided a Pain Log to continue to record their response to the target-specific procedure prior to follow-up visit with their referring physician. Additionally, specific post-injection care instructions and a contact number to our office were provided if concerns arise regarding possible complications associated with the procedure are suspected.
== END 2024-08-17 16:45 | disposition home or self-care (01) ==
PROVIDERS: PCP Family Medicine; Referring Provider Family Medicine; Visit Provider Physical Medicine & Rehabilitation
DX: M48.061 Spinal stenosis, lumbar region without neurogenic claudication (principal); M51.16 Intervertebral disc disorders with radiculopathy, lumbar region; M47.26 Other spondylosis with radiculopathy, lumbar region
CPT/HCPCS: 64483; 99152; J0702; J1100; J2250